=== PATIENT | female | born 1950 | race African-American/Black ===

== ENCOUNTER 2017-03-15 06:32 | Emergency (ER) | payer OTHER ==
[2017-03-15 07:08] VITALS: BMI 27.9
[2017-03-15] MEDS ORDERED: ACETAMINOPHEN 325 MG TABLET (FP) PO ONE (07:25)
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
[2017-03-15] MEDS ORDERED: ACETAMINOPHEN 325 MG TABLET (FP) ONE (07:33)
[2017-03-15 07:46] LABS: URINE APPEARANCE CLEAR; URINE BILIRUBIN NEGATIVE (NEGATIVE); URINE COLOR LTYELLOW; URINE GLUCOSE (UA) NEGATIVE (NEGATIVE); URINE KETONE NEGATIVE (NEGATIVE); URINE LEUK ESTERASE NEGATIVE (NEGATIVE); URINE NITRITE NEGATIVE (NEGATIVE); URINE PROTEIN NEGATIVE (NEGATIVE); URINE UROBILINOGEN NEGATIVE mg/dL (0.2-1.0)
[2017-03-15 07:59] LABS: URINE BLOOD 1+ (NEGATIVE)
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
[2017-03-15 08:32] LABS: URINE MUCUS RARE; URINE RBC <1 /hpf (0-3); URINE WBC 17 /hpf (3-5)
[2017-03-15 09:52] VITALS: BP 157/89; PULSE 67; TEMP 97.6
== END 2017-03-15 09:40 | disposition home or self-care (01) ==
LOC: JER 06:32
DX: S22.32XA Fracture of one rib, left side, initial encounter for closed fracture (principal); S20.222A Contusion of left back wall of thorax, initial encounter; S20.212A Contusion of left front wall of thorax, initial encounter; Y04.2XXA Assault by strike against or bumped into by another person, initial encounter; Y93.89 Activity, other specified; Y92.480 Sidewalk as the place of occurrence of the external cause; I10 Essential (primary) hypertension
CPT/HCPCS: 71101-TC; 81003; 81015; 87086; 99282-25

== ENCOUNTER 2019-02-06 11:49 | Inpatient (IN) | payer OTHER ==
--- NOTE | 2019-02-06 14:32 | PDOC ---
History of Present Illness - General Chief Complaint: Injury Stated Complaint: Altered Mental Status Time Seen by Provider: 02/06/19 13:07 - History of Present Illness Initial Comments: 02/06/19 15:14 68f with pmh of htn presents to the ED brought in by daughter due to altered mental status following a fall she sustained on Tuesday. She lives with her who didn't find the fall and the change in behavior concerning but the neighbor called EMS after the patient was not answering the phone today. Patient has a hematoma around the left eye. Does't rememebr the fall. States that she ingested 2 Benadryl last night to fall asleep. According to daughter at bedside patient isn't responding appropriately, seems confused. Received .4 of Narcan due to h/o opiate use which seem to minimally awaken patient. Patient denies any headache, dizziness, or pain besides being a little sore over her left eyebrow. 02/06/19 15:49 Past History - Past Medical History Allergies/Adverse Reactions: Allergies Allergy/AdvReac Type Severity Reaction Status Date / Time No Known Allergies Allergy Verified 02/06/19 11:55 Home Medications: Ambulatory Orders Amlodipine Besylate mg PO 02/06/19 Baclofen mg PO 02/06/19 Diphenhydramine HCl [Benadryl -] mg PO Q6H 02/06/19 Methotrexate [Mexate -] mg PO Q7D 02/06/19 Mirtazapine mg PO 02/06/19 Pantoprazole Sodium [Protonix] mg PO 02/06/19 COPD: No HTN: Yes - Suicide/Smoking/Psychosocial Hx Smoking History: Unknown if ever smoked Have you smoked in the past 12 months: Yes Number of Cigarettes Smoked Daily: 5 Hx Alcohol Use: Yes Drug/Substance Use Hx: Yes Substance Use Type: Alcohol Review of Systems - Review of Systems Able to Perform ROS?: Yes Is the patient limited Bahraini proficient: No Constitutional: No: Symptoms Reported HEENTM: Yes: See HPI Respiratory: No: Symptoms reported Cardiac (ROS): No: Symptoms Reported ABD/GI: No: Symptoms Reported : No: Symptoms Reported Musculoskeletal: No: Symptoms Reported Integumentary: No: Symptoms Reported Neurological: No: Symptoms reported All Other Systems: Reviewed and Negative *Physical Exam - Vital Signs Last Vital Signs Temp Pulse Resp BP Pulse Ox 98.0 F 83 18 164/92 100 02/06/19 11:51 02/06/19 11:51 02/06/19 11:51 02/06/19 11:51 02/06/19 11:51 - Physical Exam General Appearance: Yes: Nourished, Appropriately Dressed. No: Apparent Distress HEENT: positive: EOMI, VIBHA, Other (hematoma over left eye) Respiratory/Chest: positive: Lungs Clear, Normal Breath Sounds. negative: Chest Tender, Respiratory Distress Cardiovascular: positive: Regular Rhythm, Regular Rate, S1, S2 Gastrointestinal/Abdominal: positive: Protuberent Musculoskeletal: positive: Normal Inspection. negative: CVA Tenderness Extremity: positive: Normal Capillary Refill, Normal Inspection, Normal Range of Motion Integumentary: positive: Normal Color, Dry, Warm Neurologic: positive: Normal Response. negative: Fully Oriented (oritented to self and place, not to date, couldnt vocalize her birthday either. ), Alert ( Patient had to get sternal rub to awaken), Normal Mood/Affect, Motor Strength 5/ 5 (Unable to keep arms and legs agaisnt gravity more than 5 seconds. ) ED Treatment Course - LABORATORY CBC & Chemistry Diagram: 02/06/19 14:07 02/06/19 14:09 - RADIOLOGY Radiology Studies Ordered: Category Date Time Status CERVICAL SPINE CT W/O CONTR [CT] Stat CT Scan 02/06/19 13:[address] W/O CONTRAST [CT] Stat CT Scan 02/06/19 13:[address] WITHOUT CONTRAST [CT] Stat CT Scan 02/06/19 13:14 Taken Medical Decision Making - Medical Decision Making 02/06/19 15:28 68F s/p fall on the face with AMS. Stroke vs metabolic vs tox vs infection Will obtain Ct head, cervical neck and facial bone to r/o fracture and bleed. Will get basic labs, utox, cxr and UA/UC 02/06/19 16:47 Cat scan all negative for acute processes. 02/06/19 16:48 All labs WNL. Urine still pending. Spoke to Dr. Bauer with Neurology who will come see the patient, possibly further investigation with MRi. PAtient admitted to Dr. Gonzalez, Stroke inpatient. *DC/Admit/Observation/Transfer Diagnosis at time of Disposition: Altered mental status - Discharge Dispostion Decision to Admit order: Yes - Referrals - Patient Instructions - Post Discharge Activity
--- NOTE | 2019-02-06 14:35 | PDOC ---
Documentation entered by Lisa Gordillo SCRIBE, acting as scribe for Campbell Moreno MD. Campbell Moreno MD: This documentation has been prepared by the Duy munoz Brenda, SCRIBE, under my direction and personally reviewed by me in its entirety. I confirm that the documentation accurately reflects all work, treatment, procedures, and medical decision making performed by me. Attending Attestation - Resident Resident Name: Bryan Caceres - ED Attending Attestation I have performed the following: I have examined & evaluated the patient, The case was reviewed & discussed with the resident, I agree w/resident's findings & plan, Exceptions are as noted - HPI HPI: 02/06/19 13:37 The patient is a 68 year old female with a significant past medical history of HTN, who presents to the emergency department via EMS for AMS. Per daughter, pt reportedly fell 3 days ago. The nature of the fall is unknown as it was unwitnessed, and pt does not recall how she fell. Daughter states that after the fall, the pt appeared to be behaving her normal self. However, yesterday, pt began to become confused. She states that she has been repeating phrases, not answering questions appropriately. Pt admits to taking benadryl and percocet last night to sleep. Denies intentionally overdosing. Pt denies any complaints currently. Allergies: NKDA PCP. Dr. Matteo Fonseca - Physicial Exam PE: 02/06/19 13:40 GENERAL: somnolent but arousable, AnOx2, in no acute distress. HEAD: No signs of trauma EYES: PERRLA, EOMI, sclera anicteric, conjunctiva clear ENT: Auricles normal inspection, hearing grossly normal, nares patent, oropharynx clear without exudates. Moist mucosa NECK: Nontender, no stepoffs, Normal ROM, supple, no lymphadenopathy, JVD, or masses LUNGS: Breath sounds equal, clear to auscultation bilaterally. No wheezes, and no crackles HEART: Regular rate and rhythm, normal S1 and S2, no murmurs, rubs or gallops ABDOMEN: Soft, nontender, normoactive bowel sounds. No guarding, no rebound. No masses EXTREMITIES: Normal range of motion, no edema. No clubbing or cyanosis. No cords , erythema, or tenderness NEUROLOGICAL: networker intact, + RUE and RLE weakness with poor [id number] on right side, LUE and LLE wnl SKIN: Warm, Dry, normal turgor, no rashes or lesions noted. - Critical Care Time Total Critical Care Time: 60 Critical Care Statement: The care of this patient involved high complexity decision making to prevent further life threatening deterioration of the patient 's condition and/or to evaluate & treat vital organ system(s) failure or risk of failure. - Medical Decision Making 02/06/19 14:38 68 F with AMS since fall 3 days ago. On exam was also noted to have R side weakness. Concerning for acute CVA. NIHSS 6 but pt outside window for tPA. Pt also endorses taking benadryl and oxycodone last night to sleep. Possible polypharmacy vs overdose. Will also evaluate for other metabolic encephalopathy. - Labs, tylenol, salicylate, Utox, ETOH - CT head - Neuro consult NIH Stroke Scale - Last Known Well Date/Time & Onset Date Last Known Well: 02/03/19 - Initial Evaluation Level of consciousness: Alert Ask patient the month and their age: Answers one correctly Ask patient to open & close eyes; make fist and let go: Obeys both correctly Best gaze (horizontal eye movement): Normal Visual field testing: No visual field loss Facial paresis (Show teeth/raise eyebrows/close eyes tight): Normal symmetrical movement Motor Function: Left Arm: Normal Motor Function: Right Arm: Drift Motor Function: Left Leg: Normal (extends leg 30 degrees for 5 seconds without drift) Motor Function: Right Leg: Some effort against gravity Limb Ataxia: Present in one limb Sensory(Use pinprick test arms,legs,trunk,face/side to side): Normal Best language (Describe picture, name items, read sentences): Mild to moderate aphasia Dysarthria (read several words): Normal articulation Extinction and Inattention: No abnormality - Total Score NIH Stroke Scale Score: 6
[2019-02-06 14:46] LABS: BASO % 0.5 % (0-2.0); EOS % 0.1 % (0-4.5); HEMATOCRIT 39.4 % (32.4-45.2); HEMOGLOBIN 13.1 GM/dL (10.7-15.3); LYMPH % 17.1 % (8-40); MCH 29.7 pg (25.7-33.7); MCHC 33.3 g/dl (32.0-36.0); MEAN CELL VOLUME 89.1 fl (80-96); MEAN PLT VOLUME 7.8 fl (7.5-11.1); MONO % 7.3 % (3.8-10.2); PLATELET COUNT 192 K/MM3 (134-434); RBC 4.42 M/mm3 (3.60-5.2); RDW 13.6 % (11.6-15.6)
[2019-02-06 14:51] LABS: INR 0.99 (0.83-1.09); PROTHROMBIN TIME (PATIENT) 11.7 SEC (9.7-13.0)
[2019-02-06 14:54] LABS: ACTIVATED PTT 25.5 SECONDS (25.2-36.5)
[2019-02-06] MEDS ORDERED: ACETAMINOPHEN 1000 MG/100 ML VIAL (NON FORMULARY) IVPB ONE (15:12)
[2019-02-06 15:22] LABS: ALBUMIN 3.4 g/dl (3.4-5.0); ALK PHOS 110 U/L (45-117); ANION GAP 6 MMOL/L (8-16); BILIRUBIN,TOTAL 0.5 mg/dL (0.2-1); BLOOD UREA NITROGEN 15.8 mg/dL (7-18); CALCIUM 9.5 mg/dL (8.5-10.1); CHLORIDE 109 mmol/L (98-107); CO2 28 mmol/L (21-32); CREATININE 0.8 mg/dL (0.55-1.3); GLUCOSE,RANDOM 122 mg/dL (74-106); POTASSIUM 4.3 mmol/L (3.5-5.1); SGOT/AST 23 U/L (15-37); SGPT/ALT 38 U/L (13-61); SODIUM 144 mmol/L (136-145); TOT PROT 7.5 g/dl (6.4-8.2)
--- NOTE | 2019-02-06 15:24 | EKG ---
Test Reason : Blood Pressure : / mmHG Vent. Rate : 082 BPM Atrial Rate : 082 BPM P-R Int : 148 ms QRS Dur : 074 ms QT Int : 352 ms P-R-T Axes : 061 012 024 degrees QTc Int : 411 ms NORMAL SINUS RHYTHM NORMAL ECG WHEN COMPARED WITH ECG OF 25-JAN-2008 15:31, NO SIGNIFICANT CHANGE WAS FOUND Confirmed by MD Benavides Daniel ([id number]) on 02/06/2019 3:24:37 PM Referred By: Confirmed By:Tom Benavides MD
--- NOTE | 2019-02-06 18:03 | CON.NEURO ---
Consult - Alcohol/Substance Use Hx Alcohol Use: Yes - Smoking History Smoking history: Unknown if ever smoked Have you smoked in the past 12 months: Yes Aproximately how many cigarettes per day: 5 Home Medications - Allergies Allergies/Adverse Reactions: Allergies Allergy/AdvReac Type Severity Reaction Status Date / Time No Known Allergies Allergy Verified 02/06/19 11:55 - Home Medications Home Medications: Ambulatory Orders Amlodipine Besylate mg PO 02/06/19 Baclofen mg PO 02/06/19 Diphenhydramine HCl [Benadryl -] mg PO Q6H 02/06/19 Methotrexate [Mexate -] mg PO Q7D 02/06/19 Mirtazapine mg PO 02/06/19 Pantoprazole Sodium [Protonix] mg PO 02/06/19 Physical Exam-Neuro Vital Signs: Vital Signs Temperature 98.0 F 02/06/19 11:51 Pulse Rate 89 02/06/19 15:08 Respiratory Rate 18 02/06/19 15:08 Blood Pressure 177/86 H 02/06/19 15:08 O2 Sat by Pulse Oximetry (%) 99 02/06/19 15:08 Labs: CBC, BMP 02/06/19 14:07 02/06/19 14:09 INR, PTT INR 0.99 (0.83-1.09) 02/06/19 14:07 Assessment/Plan CC Fall and confusion HPI 68 year old female historyof HTN, HLD, Patient lives alone and quite independent. She has fall and she is having difficulty with memory and memory . Patient do nto remember the fall. THere is hematoma around the eye. She has ct head , it was normal. She is quite comfortant, except she is confused she denies any focal neurological syptoms. She has ct of face, neck and head and they are unremarkable. PMH as above. NKDA SH,ROS,FH reviewed in chart Home Medications: Amlodipine Besylate mg PO 02/06/19 Baclofen mg PO 02/06/19 Diphenhydramine HCl [Benadryl -] mg PO Q6H 02/06/19 Methotrexate [Mexate -] mg PO Q7D 02/06/19 Mirtazapine mg PO 02/06/19 Pantoprazole Sodium [Protonix] mg PO 02/06/19 NEUROLOGICAL EXAMINATION Alert oriented x 2( she knows she is at hospital in [place] and today is january , could not tell exact date or year) speech is normal no neck stiffness eomi, pupils reactive, no face asymmetry moving all ext sensation is noraml reflex are generalized diminished CT head , ct face and neck is unremarkable Assessment/Plan Mild concussion injury, following fall pateint had been confused , there is no evidence of any other focal neuro symptoms except confusion. Patient is other denies any other focal neurological symptoms Plan: Suggest to do mri of brain, if she can tolerate, if remote possibility if stroke and she had fall after stroke - continue supportive care - if she continue to be confused, she may benefit from short term rehab Thanking you so much Feng Bauer MD
[2019-02-06 18:59] LABS: EPI CELLS >36 /HPF (0-5/HPF); HYALINE CASTS 15 /lpf (0-8); PH,URINE 5.5 (5.0-8.0); URINE APPEARANCE TURBID; URINE BACTERIA >9000 /hpf (NEGATIVE); URINE BILIRUBIN NEGATIVE (NEGATIVE); URINE COLOR DK YELLOW; URINE GLUCOSE (UA) NEGATIVE (NEGATIVE); URINE KETONE NEGATIVE (NEGATIVE); URINE LEUK ESTERASE 3+ (NEGATIVE); URINE NITRITE POSITIVE (NEGATIVE); URINE PROTEIN 1+ (NEGATIVE); URINE WBC 1254 /hpf (0-5)
[2019-02-06 20:07] LABS: METHADONE, UR NEGATIVE ng/ml (CUTOFF=300); OPIATES, URI NEGATIVE ng/ml (CUTOFF=300); PHENCYCLIDINE,URINE NEGATIVE ng/ml (CUTOFF=25); URINE AMPHETAMINES NEGATIVE ng/ml (CUTOFF=500); URINE BARBITURATES NEGATIVE ng/ml (CUTOFF=200); URINE BENZODIAZEPINES NEGATIVE ng/ml (CUTOFF=200)
[2019-02-06 20:13] LABS: COCAINE, UR POSITIVE ng/ml (CUTOFF=300)
--- NOTE | 2019-02-06 21:25 | HP ---
Admitting History and Physical - Admission History of Present Illness: Pt is a 68 y/o female with pmh of htn, hld and arthritis who presented to the ED brought in by daughter due to altered mental status following a fall she sustained on Tuesday. She lives with her who didn't find the fall and the change in behavior concerning but the neighbor called EMS after the patient was not answering the phone today. Patient has a hematoma around the left eye. Does't rememebr the fall. States that she ingested 2 Benadryl last night to fall asleep. According to daughter at bedside patient isn't responding appropriately, seems confused. Received .4 of Narcan due to h/o opiate use which seem to minimally awaken patient. Patient denies any headache, dizziness, or pain besides being a little sore over her left eyebrow. - Past Medical History Cardiovascular: Yes: HTN, Hyperlipdemia - Smoking History Smoking history: Unknown if ever smoked Have you smoked in the past 12 months: Yes Aproximately how many cigarettes per day: 5 - Alcohol/Substance Use Hx Alcohol Use: Yes Home Medications - Allergies Allergies/Adverse Reactions: Allergies Allergy/AdvReac Type Severity Reaction Status Date / Time No Known Allergies Allergy Verified 02/06/19 11:55 - Home Medications Home Medications: Ambulatory Orders Amlodipine Besylate 2.5 mg PO DAILY #30 tablet 02/09/19 Ciprofloxacin HCl [Cipro] 500 mg PO BID #10 tablet 02/09/19 Methotrexate [Mexate -] 12.5 mg PO Q7D #20 tablet 02/09/19 Pantoprazole Sodium [Protonix] 40 mg PO DAILY #30 tablet. 02/09/19 Family Disease History - Family Disease History Family History: Unremarkable Physical Examination Vital Signs: Vital Signs Temperature 98.0 F 02/06/19 11:51 Pulse Rate 89 02/06/19 15:08 Respiratory Rate 18 02/06/19 15:08 Blood Pressure 177/86 H 02/06/19 15:08 O2 Sat by Pulse Oximetry (%) 99 02/06/19 15:08 Labs: CBC, BMP 02/06/19 14:07 02/06/19 14:09 Problem List - Problems (1) Altered mental status Code(s): R41.82 - ALTERED MENTAL STATUS, UNSPECIFIED (2) Hypertension Code(s): I10 - ESSENTIAL (PRIMARY) HYPERTENSION (3) HLD (hyperlipidemia) Code(s): E78.5 - HYPERLIPIDEMIA, UNSPECIFIED
[2019-02-06 22:25] LABS: URINE RBC 24.9 /hpf (0-4)
[2019-02-06 22:27] LABS: YEAST NONE SEEN (NEGATIVE)
[2019-02-06] MEDS: CEFTRIAXONE 1 GM in DEXTROSE 5%-WATER - 50 ML IVPB SCH (22:50)
[2019-02-06] MEDS ORDERED: CEFTRIAXONE 1 GM/50 ML BAG ONE (22:52)
[2019-02-07] MEDS ORDERED: amLODIPine BESYLATE 5 MG TABLET (FP) ONE (01:36)
[2019-02-07] MEDS ORDERED: amLODIPine BESYLATE 5 MG TABLET (FP) PO ONE (02:00)
[2019-02-07 06:35] VITALS: BMI 25.6
[2019-02-07 07:27] LABS: BASO % 0.8 % (0-2.0); EOS % 0.9 % (0-4.5); HEMATOCRIT 37.8 % (32.4-45.2); HEMOGLOBIN 12.3 GM/dL (10.7-15.3); LYMPH % 24.7 % (8-40); MCH 29.1 pg (25.7-33.7); MCHC 32.7 g/dl (32.0-36.0); MEAN PLT VOLUME 7.8 fl (7.5-11.1); MONO % 8.2 % (3.8-10.2); NEUT % 65.4 % (42.8-82.8); PLATELET COUNT 208 K/MM3 (134-434); RBC 4.25 M/mm3 (3.60-5.2); RDW 13.4 % (11.6-15.6); WHITE BLOOD COUNT 9.2 K/mm3 (4.0-10.0)
[2019-02-07 08:11] LABS: ALBUMIN 3.1 g/dl (3.4-5.0); BILIRUBIN,TOTAL 0.4 mg/dL (0.2-1); BLOOD UREA NITROGEN 21.5 mg/dL (7-18); CALCIUM 8.9 mg/dL (8.5-10.1); POTASSIUM 3.8 mmol/L (3.5-5.1); TOT PROT 6.8 g/dl (6.4-8.2)
[2019-02-07] MEDS ORDERED: cefTRIAXone SODIUM 1 GM VIAL ONE (09:22)
[2019-02-07] MEDS ORDERED: DEXTROSE 5%-WATER - 50 ML IVPB ONE (09:23)
[2019-02-07] MEDS: PANTOPRAZOLE 40 MG TABLET (FP) PO SCH (09:29)
[2019-02-07] MEDS: amLODIPine BESYLATE 5 MG TABLET (FP) PO SCH (09:29)
[2019-02-07] MEDS: HEPARIN NA (PORCINE) 5,000 UNITS/ML 1ML VIAL SQ SCH ×2 (09:30→21:23)
[2019-02-07] MEDS: CEFTRIAXONE 1 GM in DEXTROSE 5%-WATER - 50 ML IVPB SCH (09:30)
[2019-02-07] MEDS: DEXTROSE 5%-0.45% SALINE 1,000 ML IV SCH ×2 (11:58→21:27)
--- NOTE | 2019-02-07 12:43 | ECHO ---
Name: RODRIGUEZROVERTO CASTILLO Exam:Adult Echocardiogram Study Date: 02/07/2019 09:49 AM Age: 68 yrs Reason For Study: CVA Height: 66 in Weight: 170 lb BSA: 1.9 m2 MMode/2D Measurements & Calculations IVSd: 1.1 cm Ao root diam: 2.9 cm LVIDd: 3.5 cm LA dimension: 3.0 cm LVIDs: 2.6 cm LVPWd: 1.2 cm LVPWs: 1.6 cm EDV(Teich): 50.7 ml ESV(Teich): 25.4 ml LVOT diam: 1.9 cm RV S Geovanni: 26.8 cm/sec Doppler Measurements & Calculations MV E max geovanni: 46.4 cm/sec Ao V2 max: 146.1 cm/sec MV A max geovanni: 93.8 cm/sec Ao max P.5 mmHg MV E/A: 0.49 Ao V2 mean: 92.0 cm/sec MV dec time: 0.14 sec Ao mean P.2 mmHg Ao V2 VTI: 25.8 cm KANU(I,D): 2.4 cm2 KANU(V,D): 1.9 cm2 LV V1 max P.1 mmHg SV(LVOT): 61.9 ml LV V1 mean P.1 mmHg LV V1 max: 101.2 cm/sec LV V1 mean: 66.7 cm/sec LV V1 VTI: 22.5 cm TR max geovanni: 248.7 cm/sec PA V2 max: 129.1 cm/sec TR max P.8 mmHg PA max P.7 mmHg Med Peak E' Geovanni: 4.5 cm/sec Med E/e': 10.3 Lat Peak E' Geovanni: 7.8 cm/sec Lat E/e': 5.9 Procedure A two-dimensional transthoracic echocardiogram with color flow and Doppler was performed. Left Ventricle The left ventricular size, thickness and function are normal. The left ventricular ejection fraction is normal. E/A reversal consistent with but not diagnostic of poor LV compliance. The left ventricular w all motion is normal. Right Ventricle The right ventricle is normal in size and function. Atria Normal left and right atrial size and function. Mitral Valve There is mild mitral valve thickening. There is no mitral valve stenosis. There is mild mitral regurg itation. Tricuspid Valve The tricuspid valve is normal in structure and function. There is no tricuspid stenosis. There is tra ce tricuspid regurgitation. Right ventricular systolic pressure is normal. Aortic Valve The aortic valve is not well visualized. No hemodynamically significant valvular aortic stenosis. No aortic regurgitation is present. Pulmonic Valve The pulmonic valve is not well visualized. There is no pulmonic valvular stenosis. Trace pulmonic lalo vular regurgitation. Great Vessels The aortic root is normal size. Pericardium/Pleura There is no pericardial effusion. Interpretation Summary The left ventricular size, thickness and function are normal The left ventricular ejection fraction is normal. The left ventricular wall motion is normal. There is trace tricuspid regurgitation. Right ventricular systolic pressure is normal. There is mild mitral regurgitation. E/A reversal consistent with but not diagnostic of poor LV compliance MD Marlon Frankel 02/07/2019 12:42 PM
--- NOTE | 2019-02-07 13:09 | CON.CARD ---
Consult Consult Specialty:: Cardiology - History of Present Illness Chief Complaint: s/p fall changes in MS - History Source History Provided By: Patient, Medical Record - Past Medical History Cardio/Vascular: Yes: HTN, Hyperlipdemia - Alcohol/Substance Use Hx Alcohol Use: Yes - Smoking History Smoking history: Unknown if ever smoked Have you smoked in the past 12 months: No Aproximately how many cigarettes per day: 5 Home Medications - Allergies Allergies/Adverse Reactions: Allergies Allergy/AdvReac Type Severity Reaction Status Date / Time No Known Allergies Allergy Verified 02/06/19 11:55 - Home Medications Home Medications: Ambulatory Orders Amlodipine Besylate mg PO 02/06/19 Baclofen mg PO 02/06/19 Diphenhydramine HCl [Benadryl -] mg PO Q6H 02/06/19 Methotrexate [Mexate -] mg PO Q7D 02/06/19 Mirtazapine mg PO 02/06/19 Pantoprazole Sodium [Protonix] mg PO 02/06/19 Review of Systems - Review of Systems Constitutional: reports: No Symptoms Eyes: reports: No Symptoms HENT: reports: No Symptoms Neck: reports: No Symptoms Cardiovascular: reports: No Symptoms Gastrointestinal: reports: No Symptoms Genitourinary: reports: No Symptoms Breasts: reports: No Symptoms Reported Musculoskeletal: reports: No Symptoms Integumentary: reports: No Symptoms Neurological: reports: Other (fall, changes in the mental status.) Endocrine: reports: No Symptoms Hematology/Lymphatic: reports: No Symptoms Psychiatric: reports: No Symptoms Vital Signs: Vital Signs Temperature 97.4 F L 02/07/19 10:00 Pulse Rate 125 H 02/07/19 10:00 Respiratory Rate 18 02/07/19 10:00 Blood Pressure 165/89 02/07/19 10:00 O2 Sat by Pulse Oximetry (%) 97 02/07/19 09:00 Constitutional: Yes: Well Nourished, No Distress, Calm Eyes: Yes: WNL, Conjunctiva Clear, EOM Intact HENT: Yes: WNL, Atraumatic, Normocephalic Neck: Yes: WNL, Supple, Trachea Midline Respiratory: Yes: WNL, Regular, CTA Bilaterally Gastrointestinal: Yes: WNL, Normal Bowel Sounds Renal/: Yes: WNL Cardiovascular: Yes: WNL, Regular Rate and Rhythm Musculoskeletal: Yes: WNL Extremities: Yes: WNL Integumentary: Yes: WNL Neurological: Yes: WNL, Alert, Oriented ...Motor Strength: WNL Psychiatric: Yes: WNL, Alert, Oriented - Other Data Labs, Other Data: CBC, BMP 02/07/19 06:40 02/07/19 06:40 INR, PTT INR 0.99 (0.83-1.09) 02/06/19 14:07 Troponin, BNP 02/06/19 14:09 Troponin I < 0.02 Troponin, BNP 02/06/19 14:09 Troponin I < 0.02 Imaging - Results Chest X-ray: Image Reviewed (no i/e) EKG: Image Reviewed (sr wnl) Problem List - Problems (1) Altered mental status Code(s): R41.82 - ALTERED MENTAL STATUS, UNSPECIFIED (2) Bruised ribs Code(s): S20.219A - CONTUSION OF UNSPECIFIED FRONT WALL OF THORAX, INIT ENCNTR Qualifiers: Encounter type: initial encounter Laterality: left Qualified Code(s): S20.212A - Contusion of left front wall of thorax, initial encounter (3) Hypertension Code(s): I10 - ESSENTIAL (PRIMARY) HYPERTENSION (4) Left rib fracture Code(s): S22.32XA - FRACTURE OF ONE RIB, LEFT SIDE, INIT FOR CLOS FX Qualifiers: Encounter type: initial encounter Rib fracture type: single rib Fracture type: closed Qualified Code(s): S22.32XA - Fracture of one rib, left side, initial encounter for closed fracture (5) Medication refill Code(s): Z76.0 - ENCOUNTER FOR ISSUE OF REPEAT PRESCRIPTION (6) Rib fractures Code(s): S22.39XA - FRACTURE OF ONE RIB, UNSP SIDE, INIT FOR CLOS FX Qualifiers: Encounter type: initial encounter Rib fracture type: single rib Fracture type: closed Laterality: right Qualified Code(s): S22.31XA - Fracture of one rib, right side, initial encounter for closed fracture Assessment/Plan s/p fall head injury htn hlp ekg nl tele episodes of sinus tachy echo nl neuro consult appreciated Plan; c. duplex cardiac busby stable ischemic risk stratifications eg stress test as outpatient
--- NOTE | 2019-02-07 19:56 | PN ---
Progress Note (short form) - Note Progress Note: 68 year old female historyof HTN, HLD, Patient lives alone and quite independent. She has fall and she is having difficulty with memory and memory . Patient do nto remember the fall. THere is hematoma around the eye. She has ct head , it was normal. She is quite comfortant, except she is confused she denies any focal neurological syptoms. She has ct of face, neck and head and they are unremarkable. Patient is feeling much better, and now no oriented x 3 and no headache NEUROLOGICAL EXAMINATION Alert oriented x 3, speech is normal no neck stiffness eomi, pupils reactive, no face asymmetry moving all ext sensation is noraml reflex are generalized diminished CT head , ct face and neck is unremarkable mri of brain is normal Assessment/Plan Mild concussion injury, initially was confused and oriented x 3 and feeling much better Plan: mri of brain is noraml - continue supportive care - follow up outpatient Thanking you so much Feng Bauer MD
--- NOTE | 2019-02-07 22:47 | PN ---
Progress Note, Physician History of Present Illness: No new complaints - Current Medication List Current Medications: Active Medications Amlodipine Besylate (Norvasc -) 5 mg PO DAILY [facility] Last Admin: 02/07/19 09:29 Dose: 5 mg Heparin Sodium (Porcine) (Heparin -) 5,000 unit SQ BID [facility] Last Admin: 02/07/19 21:23 Dose: 5,000 unit Dextrose/Sodium Chloride (D5-1/2ns -) 1,000 mls @ 75 mls/hr IV [facility]IR [facility] Last Admin: 02/07/19 21:27 Dose: Not Given Ceftriaxone Sodium 1 gm/ (Dextrose) 50 mls @ 100 mls/hr IVPB DAILY [facility]; Protocol Last Admin: 02/07/19 09:30 Dose: 100 mls/hr Methotrexate (Mexate -) 2.5 mg PO Th@1000 [facility] Pantoprazole Sodium (Protonix -) 40 mg PO DAILY [facility] Last Admin: 02/07/19 09:29 Dose: 40 mg - Objective Vital Signs: Vital Signs Temperature 98.3 F 02/07/19 18:00 Pulse Rate 91 H 02/07/19 18:00 Respiratory Rate 18 02/07/19 18:00 Blood Pressure 129/76 02/07/19 18:00 O2 Sat by Pulse Oximetry (%) 97 02/07/19 09:00 Neck: Yes: WNL, Supple Cardiovascular: Yes: WNL, Regular Rate and Rhythm Respiratory: Yes: WNL, Regular, CTA Bilaterally Gastrointestinal: Yes: WNL, Normal Bowel Sounds, Soft Extremities: Yes: WNL Edema: No Neurological: Yes: WNL, Alert, Oriented Labs: CBC, BMP 02/07/19 06:40 02/07/19 06:40 INR, PTT INR 0.99 (0.83-1.09) 02/06/19 14:07 Problem List - Problems (1) Altered mental status Assessment/Plan: CT scan head was negative Due to i nfectious encephalopathy vs substance abuse Code(s): R41.82 - ALTERED MENTAL STATUS, UNSPECIFIED (2) UTI (urinary tract infection) Assessment/Plan: Cont iV antibx Urine cultures contaminated Code(s): N39.0 - URINARY TRACT INFECTION, SITE NOT SPECIFIED (3) Hypertension Assessment/Plan: BP stable Code(s): I10 - ESSENTIAL (PRIMARY) HYPERTENSION (4) Polysubstance abuse Assessment/Plan: Urine tox screen (+) for cocaine/marijuana Code(s): F19.10 - OTHER PSYCHOACTIVE SUBSTANCE ABUSE, UNCOMPLICATED
[2019-02-08] MEDS: DEXTROSE 5%-0.45% SALINE 1,000 ML IV SCH ×2 (02:00→21:26)
--- NOTE | 2019-02-08 08:16 | PN ---
Progress Note (short form) - Note Progress Note: 68 year old female historyof HTN, HLD, Patient lives alone and quite independent. She has fall and she is having difficulty with memory and memory . Patient do nto remember the fall. THere is hematoma around the eye. She has ct head , it was normal. She is quite comfortant, except she is confused she denies any focal neurological syptoms. She has ct of face, neck and head and they are unremarkable. Patient is feeling much better, and now no oriented x 3 and no headache NEUROLOGICAL EXAMINATION Alert oriented x 3, speech is normal no neck stiffness eomi, pupils reactive, no face asymmetry moving all ext sensation is noraml reflex are generalized diminished CT head , ct face and neck is unremarkable mri of brain is normal Assessment/Plan Mild concussion injury, initially was confused and oriented x 3 and feeling much better. now she seems to be back to her normal state. Plan: mri of brain is noraml - continue supportive care - follow up outpatient Thanking you so much Feng Bauer MD
[2019-02-08] MEDS ORDERED: METHOTREXATE 2.5 MG TABLET PO SCH (10:00)
[2019-02-08] MEDS ORDERED: cefTRIAXone SODIUM 1 GM VIAL ONE (10:16)
[2019-02-08] MEDS ORDERED: DEXTROSE 5%-WATER - 50 ML IVPB ONE (10:16)
[2019-02-08] MEDS ORDERED: PT OWN MED DRAWER 7, Y5N ONE (10:16)
--- NOTE | 2019-02-08 10:16 | PN ---
Progress Note, Physician Chief Complaint: Pt A&Ox3; no chest pain; has craving for cigarettes. History of Present Illness: The patient is a 68 year old female with a significant past medical history of HTN, cocaine abuse (used recently), marijuana, tobacco cigarettes, alcohol, ? osteoarthritis (on methotrexate for ?right hand joint deformity; denies ; ednies hx cancer), who presents to the emergency department via EMS for s/p fall and altered mental status. Per daughter, pt reportedly fell 3 days ago. The nature of the fall is unknown as it was unwitnessed, and pt does not recall how she fell. Daughter states that after the fall, the pt appeared to be behaving her normal self. However, yesterday, pt began to become confused. She states that she has been repeating phrases, not answering questions appropriately. Pt admits to taking benadryl and percocet last night to sleep. Denies intentionally overdosing. Pt denies any complaints currently. Allergies: NKDA PCP. Dr. Matteo Fonseca - Current Medication List Current Medications: Active Medications Amlodipine Besylate (Norvasc -) 5 mg PO DAILY [facility] Last Admin: 02/07/19 09:29 Dose: 5 mg Heparin Sodium (Porcine) (Heparin -) 5,000 unit SQ BID [facility] Last Admin: 02/07/19 21:23 Dose: 5,000 unit Dextrose/Sodium Chloride (D5-1/2ns -) 1,000 mls @ 75 mls/hr IV [facility]IR [facility] Last Admin: 02/08/19 02:00 Dose: 75 mls/hr Ceftriaxone Sodium 1 gm/ (Dextrose) 50 mls @ 100 mls/hr IVPB DAILY [facility]; Protocol Last Admin: 02/07/19 09:30 Dose: 100 mls/hr Methotrexate (Mexate -) 2.5 mg PO Th@1000 [facility] Pantoprazole Sodium (Protonix -) 40 mg PO DAILY [facility] Last Admin: 02/07/19 09:29 Dose: 40 mg - Objective Vital Signs: Vital Signs Temperature 98.3 F 02/08/19 10:12 Pulse Rate 86 02/08/19 10:12 Respiratory Rate 18 02/08/19 10:12 Blood Pressure 163/90 02/08/19 10:12 O2 Sat by Pulse Oximetry (%) 97 02/07/19 21:00 Constitutional: Yes: Calm, Thin Eyes: Yes: WNL HENT: Yes: WNL Neck: Yes: WNL Cardiovascular: Yes: Regular Rate and Rhythm Respiratory: Yes: WNL Gastrointestinal: Yes: Soft ...Rectal Exam: Yes: Deferred Genitourinary: No: Anuria Breast(s): Yes: WNL Musculoskeletal: Yes: WNL Extremities: Yes: WNL Edema: No Peripheral Pulses WNL: Yes Integumentary: Yes: WNL Neurological: Yes: WNL Psychiatric: Yes: WNL Labs: CBC, BMP 02/07/19 06:40 02/07/19 06:40 INR, PTT INR 0.99 (0.83-1.09) 02/06/19 14:07 - ....Imaging Chest X-ray: Image Reviewed Problem List - Problems (1) Osteoarthritis Code(s): M19.90 - UNSPECIFIED OSTEOARTHRITIS, UNSPECIFIED SITE (2) Smokes cigarettes Assessment/Plan: Pt is craving cigarettes; asks to get something, and agrees to nicotine patch. Code(s): F17.210 - NICOTINE DEPENDENCE, CIGARETTES, UNCOMPLICATED (3) Alcohol abuse Code(s): F10.10 - ALCOHOL ABUSE, UNCOMPLICATED (4) Altered mental status Code(s): R41.82 - ALTERED MENTAL STATUS, UNSPECIFIED (5) Hypertension Assessment/Plan: On amlodipine. Avoid beta blockers (current cocaine abuse). Code(s): I10 - ESSENTIAL (PRIMARY) HYPERTENSION (6) Cocaine abuse Assessment/Plan: detox protocol. Code(s): F14.10 - COCAINE ABUSE, UNCOMPLICATED (7) [place] cardiac risk >20% in next 10 years Assessment/Plan: Pt says she had a stress test as outpatient within the psst 6-12 months, but "was unable to complete it on the treadmill, because I got tired"; she was apparently scheduled for a pharmacologic stress test, but never returned. F/u records; would have stress test doen (may do as outpatient). Code(s): Z91.89 - OTH PERSONAL RISK FACTORS, NOT ELSEWHERE CLASSIFIED
[2019-02-08] MEDS: HEPARIN NA (PORCINE) 5,000 UNITS/ML 1ML VIAL SQ SCH ×2 (10:20→21:27)
[2019-02-08] MEDS: PANTOPRAZOLE 40 MG TABLET (FP) PO SCH (10:20)
[2019-02-08] MEDS: amLODIPine BESYLATE 5 MG TABLET (FP) PO SCH (10:20)
[2019-02-08] MEDS: CEFTRIAXONE 1 GM in DEXTROSE 5%-WATER - 50 ML IVPB SCH (10:21)
[2019-02-08] MEDS: NICOTINE 14 MG/24 HOURS TOPICAL PATCH TD SCH (12:00)
[2019-02-08 13:30] LABS: CHOLESTEROL 171 mg/dL (50-200); HDL CHOLESTEROL 68 mg/dL (40-60); TRIGLYCERIDES 136 mg/dL (0-150)
--- NOTE | 2019-02-08 14:02 | EKG ---
Test Reason : Blood Pressure : / mmHG Vent. Rate : 072 BPM Atrial Rate : 072 BPM P-R Int : 154 ms QRS Dur : 084 ms QT Int : 392 ms P-R-T Axes : 012 -32 025 degrees QTc Int : 429 ms NORMAL SINUS RHYTHM LEFT AXIS DEVIATION ABNORMAL ECG WHEN COMPARED WITH ECG OF 06-FEB-2019 11:47, NO SIGNIFICANT CHANGE WAS FOUND Confirmed by SUZAN DAY MD ([id number]) on 02/08/2019 2:01:56 PM Referred By: DORITA GOMEZ DR Confirmed By:SUZAN DAY MD
--- NOTE | 2019-02-08 20:03 | PN ---
Progress Note, Physician History of Present Illness: DOING WELL - Current Medication List Current Medications: Active Medications Amlodipine Besylate (Norvasc -) 5 mg PO DAILY [facility] Last Admin: 02/08/19 10:20 Dose: 5 mg Heparin Sodium (Porcine) (Heparin -) 5,000 unit SQ BID [facility] Last Admin: 02/08/19 10:20 Dose: 5,000 unit Dextrose/Sodium Chloride (D5-1/2ns -) 1,000 mls @ 75 mls/hr IV [facility]IR [facility] Last Admin: 02/08/19 02:00 Dose: 75 mls/hr Ceftriaxone Sodium 1 gm/ (Dextrose) 50 mls @ 100 mls/hr IVPB DAILY [facility]; Protocol Last Admin: 02/08/19 10:21 Dose: 100 mls/hr Methotrexate (Mexate -) 2.5 mg PO Th@1000 [facility] Last Admin: 02/08/19 10:20 Dose: 2.5 mg Nicotine (Nicoderm Patch -) 14 mg TD DAILY [facility] Last Admin: 02/08/19 12:00 Dose: 14 mg Pantoprazole Sodium (Protonix -) 40 mg PO DAILY [facility] Last Admin: 02/08/19 10:20 Dose: 40 mg - Objective Vital Signs: Vital Signs Temperature 98.2 F 02/08/19 18:00 Pulse Rate 81 02/08/19 18:00 Respiratory Rate 18 02/08/19 18:00 Blood Pressure 150/83 02/08/19 18:00 O2 Sat by Pulse Oximetry (%) 97 02/08/19 09:00 Constitutional: Yes: No Distress HENT: Yes: Atraumatic Neck: Yes: Supple Cardiovascular: Yes: Regular Rate and Rhythm Respiratory: Yes: CTA Bilaterally Gastrointestinal: Yes: Normal Bowel Sounds Extremities: Yes: WNL Edema: No Peripheral Pulses WNL: Yes Neurological: Yes: Alert, Oriented Labs: CBC, BMP 02/07/19 06:40 02/07/19 06:40 INR, PTT INR 0.99 (0.83-1.09) 02/06/19 14:07 Problem List - Problems (1) Fall Code(s): W19.XXXA - UNSPECIFIED FALL, INITIAL ENCOUNTER (2) Hypertension Code(s): I10 - ESSENTIAL (PRIMARY) HYPERTENSION (3) Alcohol abuse Code(s): F10.10 - ALCOHOL ABUSE, UNCOMPLICATED (4) Cocaine abuse Code(s): F14.10 - COCAINE ABUSE, UNCOMPLICATED (5) Osteoarthritis Code(s): M19.90 - UNSPECIFIED OSTEOARTHRITIS, UNSPECIFIED SITE (6) Smokes cigarettes Code(s): F17.210 - NICOTINE DEPENDENCE, CIGARETTES, UNCOMPLICATED (7) Bruised ribs Code(s): S20.219A - CONTUSION OF UNSPECIFIED FRONT WALL OF THORAX, INIT ENCNTR Qualifiers: Encounter type: initial encounter Laterality: left Qualified Code(s): S20.212A - Contusion of left front wall of thorax, initial encounter Assessment/Plan continue current management all notes reviewed COVERING DR PARKER FOR TODAY
[2019-02-09] MEDS: DEXTROSE 5%-0.45% SALINE 1,000 ML IV SCH (06:15)
[2019-02-09] MEDS ORDERED: DEXTROSE 5%-WATER - 50 ML IVPB ONE (09:48)
[2019-02-09] MEDS ORDERED: PT OWN MED DRAWER 7, Y5N ONE (09:48)
[2019-02-09] MEDS ORDERED: cefTRIAXone SODIUM 1 GM VIAL ONE (09:48)
[2019-02-09] MEDS: CEFTRIAXONE 1 GM in DEXTROSE 5%-WATER - 50 ML IVPB SCH (09:50)
[2019-02-09] MEDS: PANTOPRAZOLE 40 MG TABLET (FP) PO SCH (09:50)
[2019-02-09] MEDS: HEPARIN NA (PORCINE) 5,000 UNITS/ML 1ML VIAL SQ SCH (09:50)
[2019-02-09] MEDS: NICOTINE 14 MG/24 HOURS TOPICAL PATCH TD SCH (09:50)
[2019-02-09] MEDS: amLODIPine BESYLATE 5 MG TABLET (FP) PO SCH (09:50)
--- NOTE | 2019-02-09 11:01 | PN ---
Progress Note (short form) - Note Progress Note: 68 year old female historyof HTN, HLD, Patient lives alone and quite independent. She has fall and she is having difficulty with memory and memory . Patient do nto remember the fall. THere is hematoma around the eye. She has ct head , it was normal. She is quite comfortant, except she is confused she denies any focal neurological syptoms. She has ct of face, neck and head and they are unremarkable. Patient is feeling much better, and now no oriented x 3 and no headache , no new coplainin and she is getting abx NEUROLOGICAL EXAMINATION Alert oriented x 3, speech is normal no neck stiffness eomi, pupils reactive, no face asymmetry moving all ext sensation is noraml reflex are generalized diminished CT head , ct face and neck is unremarkable mri of brain is normal Assessment/Plan Mild concussion injury, initially was confused and oriented x 3 and feeling much better. now she seems to be back to her normal state. Plan: mri of brain is normal - follow up outpatient Thanking you so much Feng Bauer MD
[2019-02-09 15:06] VITALS: BP 128/72; PULSE 94; TEMP 98.4
--- NOTE | 2019-02-09 18:05 | PN ---
Progress Note, Physician History of Present Illness: The patient is a 68 year old female with a significant past medical history of HTN, cocaine abuse (used recently), marijuana, tobacco cigarettes, alcohol, ? osteoarthritis (on methotrexate for ?right hand joint deformity; denies ; ednies hx cancer), who presents to the emergency department via EMS for s/p fall and altered mental status. Per daughter, pt reportedly fell 3 days ago. The nature of the fall is unknown as it was unwitnessed, and pt does not recall how she fell. Daughter states that after the fall, the pt appeared to be behaving her normal self. However, yesterday, pt began to become confused. She states that she has been repeating phrases, not answering questions appropriately. Pt admits to taking benadryl and percocet last night to sleep. Denies intentionally overdosing. Pt denies any complaints currently. Allergies: NKDA PCP. Dr. Matteo Fonseca - Current Medication List Current Medications: Active Medications Amlodipine Besylate (Norvasc -) 5 mg PO DAILY [facility] Last Admin: 02/09/19 09:50 Dose: 5 mg Heparin Sodium (Porcine) (Heparin -) 5,000 unit SQ BID [facility] Last Admin: 02/09/19 09:50 Dose: 5,000 unit Dextrose/Sodium Chloride (D5-1/2ns -) 1,000 mls @ 75 mls/hr IV ASDIR [facility] Last Admin: 02/09/19 06:15 Dose: 75 mls/hr Ceftriaxone Sodium 1 gm/ (Dextrose) 50 mls @ 100 mls/hr IVPB DAILY [facility]; Protocol Last Admin: 02/09/19 09:50 Dose: 100 mls/hr Methotrexate (Mexate -) 2.5 mg PO Th@1000 [facility] Last Admin: 02/08/19 10:20 Dose: 2.5 mg Nicotine (Nicoderm Patch -) 14 mg TD DAILY [facility] Last Admin: 02/09/19 09:50 Dose: 14 mg Pantoprazole Sodium (Protonix -) 40 mg PO DAILY [facility] Last Admin: 02/09/19 09:50 Dose: 40 mg - Objective Vital Signs: Vital Signs Temperature 98.4 F 02/09/19 14:00 Pulse Rate 94 H 02/09/19 14:00 Respiratory Rate 20 02/09/19 14:00 Blood Pressure 128/72 02/09/19 14:00 O2 Sat by Pulse Oximetry (%) 96 02/08/19 21:00 Labs: CBC, BMP 02/07/19 06:40 02/07/19 06:40 INR, PTT INR 0.99 (0.83-1.09) 02/06/19 14:07 Problem List - Problems (1) Osteoarthritis Code(s): M19.90 - UNSPECIFIED OSTEOARTHRITIS, UNSPECIFIED SITE (2) Smokes cigarettes Code(s): F17.210 - NICOTINE DEPENDENCE, CIGARETTES, UNCOMPLICATED (3) Alcohol abuse Code(s): F10.10 - ALCOHOL ABUSE, UNCOMPLICATED (4) Altered mental status Code(s): R41.82 - ALTERED MENTAL STATUS, UNSPECIFIED (5) Hypertension Code(s): I10 - ESSENTIAL (PRIMARY) HYPERTENSION (6) Cocaine abuse Code(s): F14.10 - COCAINE ABUSE, UNCOMPLICATED (7) [place] cardiac risk >20% in next 10 years Code(s): Z91.89 - OTH PERSONAL RISK FACTORS, NOT ELSEWHERE CLASSIFIED
== END 2019-02-09 18:46 | disposition home or self-care (01) | DRG 89 ==
LOC: JER 11:49 → SUPCPDRO 11:49 → JERBED 16:07 → J4S 02-07 04:09
PROVIDERS: ADMIT Internal Medicine; ATTEND Internal Medicine
DX: S06.0X9A Concussion with loss of consciousness of unspecified duration, initial encounter (principal); N39.0 Urinary tract infection, site not specified; I10 Essential (primary) hypertension; E78.5 Hyperlipidemia, unspecified; S00.12XA Contusion of left eyelid and periocular area, initial encounter; W01.0XXA Fall on same level from slipping, tripping and stumbling without subsequent striking against object, initial encounter; Y93.89 Activity, other specified; Y92.038 Other place in apartment as the place of occurrence of the external cause; Y99.8 Other external cause status; F10.10 Alcohol abuse, uncomplicated; F14.10 Cocaine abuse, uncomplicated; F17.210 Nicotine dependence, cigarettes, uncomplicated
CPT/HCPCS: 36415; 70450-TC; 70486-TC; 70551-TC; 71045-TC-FY; 72125-TC; 80053; 80061; 80307; 81003; 82550; 82553; 82962; 83036; 83721; 84443; 84484; 85025; 85610; 85730; 87086; 93005; 93010; 93306-TC; 93880-TC; 97116-GP; 97161-GP; 99285-25; J1644; J8610

== ENCOUNTER 2019-11-18 07:37 | Inpatient (IN) | payer OTHER ==
--- NOTE | 2019-11-18 07:50 | PDOC ---
Attending Attestation - Resident Resident Name: Rich Pathak - HPI HPI: 11/18/19 08:49 Pt presents to the ED complaining of slurred speech and L sided weakness. History of HTN, admissions for AMS with negative work up in the past. Last known well 10 pm last night. 11/18/19 08:50 - Physicial Exam PE: 11/18/19 08:53 Agree with resident exam. Patient is alert and oriented and in no acute distress. Neuro: alert and oriented x 3. CN grossly intact. Speech is fluent and patient is oriented x 3, but slightly slurred. 11/18/19 09:02 - Medical Decision Making 11/18/19 09:04 Pt presents to the ED complaining of slurred speech and R sided weakness, onset at 10 pm last night. Differential includes CVA, TIA. Will check CT to rule out bleed. Will admit for MRI and CVA rule out. Will consult neurology. 11/18/19 09:07 Discharge - Discharge Information Problems reviewed: Yes Clinical Impression/Diagnosis: Cerebrovascular accident (CVA), Transient ischemic attack Condition: Improved - Follow up/Referral - Patient Discharge Instructions - Post Discharge Activity
--- NOTE | 2019-11-18 08:11 | PDOC ---
History of Present Illness - General Chief Complaint: CVA/TIA Stated Complaint: POSSIBLE STROKE Time Seen by Provider: 11/18/19 07:48 - History of Present Illness Initial Comments: Stacie Moyer is a 69 y/o female with reported PMH significant for HTN. Yesterday afternoon at 2:45pm, she had onset of slurred speech and right upper and lower extremity weakness. First time this has happened, no hx of stroke in the past. Symptoms resolved. At around 10pm last night she started having symptoms again but went to bed. This morning she woke up around 5:45am with the same weakness. Fell while trying to get to the bathroom. Family subsequently called EMS. Never had a stroke before. At present, pt denies any pain. No headache/dizziness. No chest pain/shortness of breath. No abdominal pain. No back pain. No lower extremity swelling. No dysuria/diarrhea. SocHx: did two to three lines of cocaine yesterday Past History - Past Medical History Allergies/Adverse Reactions: Allergies Allergy/AdvReac Type Severity Reaction Status Date / Time No Known Allergies Allergy Verified 11/18/19 07:45 Home Medications: Ambulatory Orders Amlodipine Besylate 2.5 mg PO DAILY #30 tablet 02/09/19 Ciprofloxacin HCl [Cipro] 500 mg PO BID #10 tablet 02/09/19 Methotrexate [Mexate -] 12.5 mg PO Q7D #20 tablet 02/09/19 Pantoprazole Sodium [Protonix] 40 mg PO DAILY #30 tablet. 02/09/19 Cancer: No COPD: No Disorders: No HTN: Yes - Psycho Social/Smoking Cessation Hx Smoking History: Current every day smoker Have you smoked in the past 12 months: Yes Number of Cigarettes Smoked Daily: 2 Information on smoking cessation initiated: No Hx Alcohol Use: No Drug/Substance Use Hx: No Substance Use Type: Alcohol Review of Systems - Review of Systems Comments:: GENERAL/CONSTITUTIONAL: No fever or chills. No weakness._ HEAD, EYES, EARS, NOSE AND THROAT: No change in vision. No change in hearing. No sore throat._ CARDIOVASCULAR: No chest pain or shortness of breath_ RESPIRATORY: Denies cough, hemoptysis_ GASTROINTESTINAL: No nausea, vomiting, diarrhea or constipation._ GENITOURINARY: No dysuria, frequency, or change in urination._ MUSCULOSKELETAL: No joint or muscle swelling or pain. No neck or back pain._ SKIN: No rash_ NEUROLOGIC: Reports RUE and RLE weakness. Reports slurred speech. No headache, vertigo, loss of consciousness, or change in strength/sensation._ ENDOCRINE: No increased thirst. No abnormal weight change_ HEMATOLOGIC/LYMPHATIC: No anemia, easy bleeding, or history of blood clots._ ALLERGIC/IMMUNOLOGIC: No hives or skin allergy. *Physical Exam - Vital Signs Last Vital Signs Temp Pulse Resp BP Pulse Ox 98 F 65 18 138/74 97 11/18/19 07:46 11/18/19 07:46 11/18/19 07:46 11/18/19 07:46 11/18/19 07:46 - Physical Exam GENERAL: Awake, alert, and oriented to person/place/time, in no acute distress_ HEAD: No signs of trauma, normocephalic, atraumatic _ EYES: PERRLA, EOMI, sclera anicteric, conjunctiva clear_ ENT: Hearing grossly normal, nares patent, oropharynx clear without exudates. No uvular deviation. Moist mucosa_ NECK: Normal ROM, supple, no lymphadenopathy, JVD, or masses. No c-spine TTP. LUNGS: No distress, speaks in full sentences, clear to auscultation bilaterally _ HEART: Regular rate and rhythm, normal S1 and S2, no murmurs appreciated, peripheral pulses normal and equal bilaterally._ ABDOMEN: Soft, nontender, normoactive bowel sounds. No guarding, no rebound. No masses_ BACK: No T-spine or L-spine TTP. No obvious bruising or trauma. EXTREMITIES: Normal inspection, Normal range of motion, no edema. No clubbing or cyanosis_ NEUROLOGICAL: CN II-XII tested and intact. No obvious facial droop. Slurred speech. Sensation intact to sharp/dull differentiation in all extremities. Motor: Normal tone and bulk. No abnormal movements appreciated. No pronator drift. Strength tested and 5/5 on left side in wrist flexion/extension, elbow flexion/extension, shoulder abduction, straight leg raise, knee flexion/extension, ankle dorsiflexion/plantarflexion. 3/5 on right side wrist flexion/extension, elbow flexion/extension, shoulder abduction, straight leg raise, knee flexion/extension, ankle dorsiflexion/plantarflexion. Gait not assessed 2/2 weakness. Coordination: Finger to nose intact for left hand. Heel to lomeli testing intact on left side. Unable to assess right side 2/2 weakness. SKIN: Warm, Dry, normal turgor, no rashes or lesions noted_ NIH Stroke Scale - Last Known Well Date/Time & Onset Date Last Known Well: 11/17/19 Time Last Known Well: 22:00 - Initial Evaluation Level of consciousness: Alert Ask patient the month and their age: Answers both correctly Ask patient to open & close eyes; make fist and let go: Obeys both correctly Best gaze (horizontal eye movement): Normal Visual field testing: No visual field loss Facial paresis (Show teeth/raise eyebrows/close eyes tight): Normal symmetrical movement Motor Function: Left Arm: Normal Motor Function: Right Arm: Some effort against gravity Motor Function: Left Leg: Normal (extends leg 30 degrees for 5 seconds without drift) Motor Function: Right Leg: Some effort against gravity Limb Ataxia: Present in one limb Sensory(Use pinprick test arms,legs,trunk,face/side to side): Normal Best language (Describe picture, name items, read sentences): No Aphasia Dysarthria (read several words): Mild to moderate slurring of words Extinction and Inattention: No abnormality - Total Score NIH Stroke Scale Score: 6 tPA Exclusion checklist 3-4.5h - Time Elapsed Date last known well: 11/17/19 Time last known well: 22:00 Elaspsed time: Day(s) and 12 Hour(s) and 21 Minutes - Thrombolytic Therapy Candidate Is patient eligible for thrombolytic therapy: No - Exclusion Criteria 3-4.5 hr SBP greater than 185 or DBP greater than 110mmHg despite tx: No Recent IC/spinal surgery,head trauma or stroke<3mos.: No Hx IC hemorrhage, IC neoplasm, AV malformation or aneurysm: No Active internal bleeding: No Blding diathesis(low plt ct, inc PTT,INR>1.7 or use of NOAC): No Symptoms suggest subarachnoid hemorrhage: No CT demonstrates multilobar infarct(>1/3 cerebral hemiphere): No Arterial puncture at noncompressible site in previous 7 days: No Blood glucose concentration less than 50mg/dL (2.7mmol/L): No - Relative Exclusion Criteria 3-4.5 hr Care team unable to determine eligibility: No IV/IA thrombolysis/thrombectomy @ another hosp prior arrival: No Life expectancy <1 yr or severe co-morbid illness: No : No Patient/family refused: No Stroke severity too mild (non-disabling): No Recent acute NH (w/in previous 3 months): No Seizure at onset with postictal residual neuro impairments: No Major surgery or serious trauma w/in previous 14 days: No Recent GI or hemorrhage (w/in previous 21 days): No - Add'l Relative Exclusion 3-4.5 hr Age > 80: No Hx of both diabetes AND prior ischemic stroke: No Taking an oral anticoagulant regardless of INR: No Severe Stroke (NIHSS >25): No - Ineligibility reason(s) Reasons No tPA given: Outside of window - delayed arrival Critical Care Time/MDM Note - Medical Decision Making Note: 11/18/19 08:20 69F presenting with slurred speech and RUE/RLE weakness, s/p fall. Resolved episode at 1445 yesterday. Last known well 2200 yesterday. -stroke order set 11/18/19 09:06 EKG shows NSR, LAD (seen on prior EKG 01/2019), 63 bpm, no ST elevation, QTc 444. 11/18/19 09:11 CXR negative for acute thoracic pathology. 11/18/19 10:12 CT head negative for acute intracranial pathology. CT neck negative for fx. D/w Dr. Bauer who recommends admission, brain MRI, carotid US. 11/18/19 10:21 D/w the case with Dr. Gonzalez who accepts the patient for admission. Labs reviewed. Laboratory Last Values WBC 7.1 K/mm3 (4.0-10.0) 11/18/19 08:35 RBC 4.71 M/mm3 (3.60-5.2) 11/18/19 08:35 Hgb 13.6 GM/dL (10.7-15.3) 11/18/19 08:35 Hct 40.8 % (32.4-45.2) 11/18/19 08:35 MCV 86.5 fl (80-96) 11/18/19 08:35 MCH 28.8 pg (25.7-33.7) 11/18/19 08:35 MCHC 33.3 g/dl (32.0-36.0) 11/18/19 08:35 RDW 14.4 % (11.6-15.6) 11/18/19 08:35 Plt Count 194 K/MM3 (134-434) 11/18/19 08:35 MPV 8.1 fl (7.5-11.1) 11/18/19 08:35 Absolute Neuts (auto) 5.0 K/mm3 (1.5-8.0) 11/18/19 08:35 Neutrophils % 69.8 % (42.8-82.8) 11/18/19 08:35 Lymphocytes % 16.9 % (8-40) D 11/18/19 08:35 Monocytes % 11.5 % (3.8-10.2) H 11/18/19 08:35 Eosinophils % 1.5 % (0-4.5) 11/18/19 08:35 Basophils % 0.3 % (0-2.0) 11/18/19 08:35 Nucleated RBC % 0 % (0-0) 11/18/19 08:35 Sodium 140 mmol/L (136-145) 11/18/19 08:35 Potassium 5.2 mmol/L (3.5-5.1) H 11/18/19 08:35 Chloride 105 mmol/L (98-107) 11/18/19 08:35 Carbon Dioxide 26 mmol/L (21-32) 11/18/19 08:35 Anion Gap 8 MMOL/L (8-16) 11/18/19 08:35 BUN 22.8 mg/dL (7-18) H 11/18/19 08:35 Creatinine 1.3 mg/dL (0.55-1.3) 11/18/19 08:35 Est GFR (CKD-EPI)AfAm 47.80 11/18/19 08:35 Est GFR (CKD-EPI)NonAf 41.24 11/18/19 08:35 Random Glucose 112 mg/dL (74-106) H 11/18/19 08:35 Calcium 9.0 mg/dL (8.5-10.1) 11/18/19 08:35 Total Bilirubin 0.7 mg/dL (0.2-1) 11/18/19 08:35 AST 40 U/L (15-37) H 11/18/19 08:35 ALT 32 U/L (13-61) 11/18/19 08:35 Alkaline Phosphatase 94 U/L (45-117) 11/18/19 08:35 Creatine Kinase 123 U/L (26-192) 11/18/19 08:35 Troponin I < 0.02 ng/ml (0.00-0.05) 11/18/19 08:35 Total Protein 7.7 g/dl (6.4-8.2) 11/18/19 08:35 Albumin 3.5 g/dl (3.4-5.0) 11/18/19 08:35 Triglycerides 98 mg/dL (0-150) 11/18/19 08:35 Triglycerides Cancelled 11/18/19 08:35 Cholesterol 217 mg/dL (50-200) H 11/18/19 08:35 Cholesterol Cancelled 11/18/19 08:35 Total LDL Cholesterol 114 mg/dL (5-100) H 11/18/19 08:35 Total LDL Cholesterol Cancelled 11/18/19 08:35 HDL Cholesterol 88 mg/dL (40-60) H 11/18/19 08:35 HDL Cholesterol Cancelled 11/18/19 08:35 Urine Color Yellow 11/18/19 10:00 Urine Appearance Cloudy 11/18/19 10:00 Urine pH 6.5 (5.0-8.0) 11/18/19 10:00 Ur Specific [place] 1.010 (1.010-1.035) 11/18/19 10:00 Urine Protein Negative (NEGATIVE) 11/18/19 10:00 Urine Glucose (UA) Negative (NEGATIVE) 11/18/19 10:00 Urine Ketones Negative (NEGATIVE) 11/18/19 10:00 Urine Blood Negative (NEGATIVE) 11/18/19 10:00 Urine Nitrite Negative (NEGATIVE) 11/18/19 10:00 Urine Bilirubin Negative (NEGATIVE) 11/18/19 10:00 Urine Urobilinogen 1.0 mg/dL (0.2-1.0) 11/18/19 10:00 Ur Leukocyte Esterase 2+ (NEGATIVE) H 11/18/19 10:00 Urine WBC (Auto) 320 /uL (0-25.8) 11/18/19 10:00 Urine RBC (Auto) 17 /uL (0-23.9) 11/18/19 10:00 Urine Casts (Auto) 4 /uL (0-3.1) 11/18/19 10:00 U Epithel Cells (Auto) 24 /uL (0-25.1) 11/18/19 10:00 Urine Bacteria (Auto) 623 /uL (0-1359) 11/18/19 10:00 Blood Type A POSITIVE 11/18/19 08:35 Antibody Screen Negative 11/18/19 08:35 Discharge - Discharge Information Problems reviewed: Yes Clinical Impression/Diagnosis: Cerebrovascular accident (CVA), Transient ischemic attack Condition: Stable - Admission Yes - Follow up/Referral Referrals: Salvador Fonseca MD [Primary Care Provider] - - Patient Discharge Instructions - Post Discharge Activity
[2019-11-18] MEDS ORDERED: SODIUM CHLORIDE 1,000 ML IV SCH ×2 (08:15→19:26)
[2019-11-18 09:09] LABS: BASO % 0.3 % (0-2.0); EOS % 1.5 % (0-4.5); HEMATOCRIT 40.8 % (32.4-45.2); HEMOGLOBIN 13.6 GM/dL (10.7-15.3); LYMPH % 16.9 % (8-40); MCH 28.8 pg (25.7-33.7); MCHC 33.3 g/dl (32.0-36.0); MEAN CELL VOLUME 86.5 fl (80-96); MEAN PLT VOLUME 8.1 fl (7.5-11.1); MONO % 11.5 % (3.8-10.2); NEUT % 69.8 % (42.8-82.8); PLATELET COUNT 194 K/MM3 (134-434); RBC 4.71 M/mm3 (3.60-5.2); RDW 14.4 % (11.6-15.6); WHITE BLOOD COUNT 7.1 K/mm3 (4.0-10.0)
[2019-11-18 09:45] LABS: ALBUMIN 3.5 g/dl (3.4-5.0); ALK PHOS 94 U/L (45-117); ANION GAP 8 MMOL/L (8-16); BILIRUBIN,TOTAL 0.7 mg/dL (0.2-1); BLOOD UREA NITROGEN 22.8 mg/dL (7-18); CHLORIDE 105 mmol/L (98-107); CHOLESTEROL 217 mg/dL (50-200); CO2 26 mmol/L (21-32); CREATININE 1.3 mg/dL (0.55-1.3); GLUCOSE,RANDOM 112 mg/dL (74-106); HDL CHOLESTEROL 88 mg/dL (40-60); LDL CHOLESTEROL (ONLY SJRH) 114 mg/dL (5-100); POTASSIUM 5.2 mmol/L (3.5-5.1); SGOT/AST 40 U/L (15-37); SGPT/ALT 32 U/L (13-61); SODIUM 140 mmol/L (136-145); TOT PROT 7.7 g/dl (6.4-8.2); TRIGLYCERIDES 98 mg/dL (0-150)
[2019-11-18] MEDS ORDERED: ASPIRIN 81 MG CHEWABLE TABLETS PO ONE (10:01)
[2019-11-18 10:20] LABS: EPI CELLS 24 /uL (0-25.1); HYALINE CASTS 4 /uL (0-3.1); PH,URINE 6.5 (5.0-8.0); URINE APPEARANCE CLOUDY; URINE BACTERIA 623 /uL (0-1359); URINE BILIRUBIN NEGATIVE (NEGATIVE); URINE COLOR YELLOW; URINE GLUCOSE (UA) NEGATIVE (NEGATIVE); URINE KETONE NEGATIVE (NEGATIVE); URINE LEUK ESTERASE 2+ (NEGATIVE); URINE NITRITE NEGATIVE (NEGATIVE); URINE PROTEIN NEGATIVE (NEGATIVE); URINE RBC 17 /uL (0-23.9); URINE WBC 320 /uL (0-25.8)
[2019-11-18 10:29] LABS: INR 0.95 (0.83-1.09); PROTHROMBIN TIME (PATIENT) 11.2 SEC (9.7-13.0)
[2019-11-18 10:32] LABS: ACTIVATED PTT 26.5 SECONDS (25.2-36.5)
[2019-11-18] MEDS ORDERED: ASPIRIN 81 MG CHEWABLE TABLETS ONE ×2 (10:33→10:44)
[2019-11-18] MEDS ORDERED: METHOTREXATE 2.5 MG TABLET PO SCH (16:45)
--- NOTE | 2019-11-18 16:57 | HP ---
CHIEF COMPLAINT: Right-sided weakness, slurred speech PCP: Dr. Salvador Fonseca HISTORY OF PRESENT ILLNESS: 69 year-old female with a PMH significant for HTN and substance abuse. Yesterday afternoon at 2:45pm, she had onset of slurred speech and right upper and lower extremity weakness. Symptoms resolved. At around 10pm last night she started having symptoms again but went to bed. This morning she woke up around 5:45am with the same weakness. Fell while trying to get to the bathroom. Family subsequently called EMS. At the time of this admission patient states her speech is back to baseline. She also states her right hand weakness has been present x 1 year. She denies dysuria, frequency, urgency. She has not been on antibiotics that she can remember. She last saw Dr. Fonseca in August. She stopped taking her regular medications "because I'm stupid." ED course (1) Pyuria (2) K 5.2 Recent Travel: None reported PAST MEDICAL HISTORY: Hypertension Substance abuse PAST SURGICAL HISTORY: None reported Social History: Smoking: current every day Alcohol: yes Drugs: cocaine yesterday Allergies No Known Allergies Allergy (Verified 11/18/19 07:45) HOME MEDICATIONS: Home Medications Medication Instructions Recorded Amlodipine Besylate 2.5 mg PO DAILY #30 tablet 02/09/19 Ciprofloxacin HCl [Cipro] 500 mg PO BID #10 tablet 02/09/19 Methotrexate [Mexate -] 12.5 mg PO Q7D #20 tablet 02/09/19 Pantoprazole Sodium [Protonix] 40 mg PO DAILY #30 tablet. 02/09/19 REVIEW OF SYSTEMS CONSTITUTIONAL: Absent: fever, chills, diaphoresis, generalized weakness, malaise, loss of appetite, weight change HEENT: Absent: rhinorrhea, nasal congestion, throat pain, throat swelling, difficulty swallowing, mouth swelling, ear pain, eye pain, visual changes CARDIOVASCULAR: Absent: chest pain, syncope, palpitations, irregular heart rate, lightheadedness, peripheral edema RESPIRATORY: Absent: cough, shortness of breath, dyspnea with exertion, orthopnea, wheezing, stridor, hemoptysis GASTROINTESTINAL: Absent: abdominal pain, abdominal distension, nausea, vomiting, diarrhea, constipation, melena, hematochezia GENITOURINARY: Absent: dysuria, frequency, urgency, hesitancy, hematuria, flank pain, genital pain MUSCULOSKELETAL: Absent: myalgia, arthralgia, joint swelling, back pain, neck pain SKIN: Absent: rash, itching, pallor HEMATOLOGIC/IMMUNOLOGIC: Absent: easy bleeding, easy bruising, lymphadenopathy, frequent infections ENDOCRINE: Absent: unexplained weight gain, unexplained weight loss, heat intolerance, cold intolerance NEUROLOGIC: +slurred speech yesterday, now resolved; right-handed weakness x 1 year Absent: headache, focal weakness or paresthesias, dizziness, unsteady gait, seizure, mental status changes, bladder or bowel incontinence PSYCHIATRIC: Absent: anxiety, depression, suicidal or homicidal ideation, hallucinations. PHYSICAL EXAMINATION Vital Signs - 24 hr 11/18/19 11/18/19 11/18/19 07:46 08:58 11:00 Temperature 98 F Pulse Rate 65 Pulse Rate [ 69 68 Left] Respiratory 18 17 18 Rate Blood Pressure 138/74 Blood Pressure 143/69 136/79 [Left Arm] O2 Sat by Pulse 97 99 99 Oximetry (%) GENERAL/NEURO: Awake, alert, and fully oriented, in no acute distress. Right pronator drift. 3/5 cma or lpn right hand, sensory intact; 4/5 motor RLE, sensory intact HEAD: Normal with no signs of trauma. EYES: Pupils equal, round and reactive to light, extraocular movements intact, sclera anicteric, conjunctiva clear. EARS, NOSE, THROAT: Edentulous. LUNGS: Breath sounds equal, clear to auscultation bilaterally. No wheezes, and no crackles. No accessory muscle use. HEART: Regular rate and rhythm, normal S1 and S2 ABDOMEN: Soft, nontender, not distended UPPER EXTREMITIES: 2+ pulses, warm, well-perfused. No cyanosis. No clubbing. No peripheral edema. LOWER EXTREMITIES: 2+ pulses, warm, well-perfused. No calf tenderness. No peripheral edema. Laboratory Results - last 24 hr 11/18/19 11/18/19 11/18/19 08:35 08:35 08:35 WBC 7.1 RBC 4.71 Hgb 13.6 Hct 40.8 MCV 86.5 MCH 28.8 MCHC 33.3 RDW 14.4 Plt Count 194 MPV 8.1 Absolute Neuts (auto) 5.0 Neutrophils % 69.8 Lymphocytes % 16.9 D Monocytes % 11.5 H Eosinophils % 1.5 Basophils % 0.3 Nucleated RBC % 0 PT with INR 11.20 INR 0.95 PTT (Actin FS) 26.5 Sodium Potassium Chloride Carbon Dioxide Anion Gap BUN Creatinine Est GFR (CKD-EPI)AfAm Est GFR (CKD-EPI)NonAf Random Glucose Calcium Total Bilirubin AST ALT Alkaline Phosphatase Creatine Kinase Troponin I Total Protein Albumin Triglycerides Cancelled Cholesterol Cancelled Total LDL Cholesterol Cancelled HDL Cholesterol Cancelled Urine Color Urine Appearance Urine pH Ur Specific [place] Urine Protein Urine Glucose (UA) Urine Ketones Urine Blood Urine Nitrite Urine Bilirubin Urine Urobilinogen Ur Leukocyte Esterase Urine WBC (Auto) Urine RBC (Auto) Urine Casts (Auto) U Epithel Cells (Auto) Urine Bacteria (Auto) Blood Type Antibody Screen 11/18/19 11/18/19 11/18/19 08:35 08:35 10:00 WBC RBC Hgb Hct MCV MCH MCHC RDW Plt Count MPV Absolute Neuts (auto) Neutrophils % Lymphocytes % Monocytes % Eosinophils % Basophils % Nucleated RBC % PT with INR INR PTT (Actin FS) Sodium 140 Potassium 5.2 H Chloride 105 Carbon Dioxide 26 Anion Gap 8 BUN 22.8 H Creatinine 1.3 Est GFR (CKD-EPI)AfAm 47.80 Est GFR (CKD-EPI)NonAf 41.24 Random Glucose 112 H Calcium 9.0 Total Bilirubin 0.7 AST 40 H ALT 32 Alkaline Phosphatase 94 Creatine Kinase 123 Troponin I < 0.02 Total Protein 7.7 Albumin 3.5 Triglycerides 98 Cholesterol 217 H Total LDL Cholesterol 114 H HDL Cholesterol 88 H Urine Color Yellow Urine Appearance Cloudy Urine pH 6.5 Ur Specific [place] 1.010 Urine Protein Negative Urine Glucose (UA) Negative Urine Ketones Negative Urine Blood Negative Urine Nitrite Negative Urine Bilirubin Negative Urine Urobilinogen 1.0 Ur Leukocyte Esterase 2+ H Urine WBC (Auto) 320 Urine RBC (Auto) 17 Urine Casts (Auto) 4 U Epithel Cells (Auto) 24 Urine Bacteria (Auto) 623 Blood Type A POSITIVE Antibody Screen Negative ASSESSMENT/PLAN: 69 year-old female with a PMH significant for HTN and substance abuse. Admitted for r/o CVA. r/o CVA --self-reported speech deficit resolved --mild weakness RUE, RLE, sensory intact --troponin neg x 1, second pending --ECG: no acute ischemia --CT head unremarkable --US carotids: no significant stenosis --MRI brain ordered --continue ASA, start Lipitor --telemetry monitoring --neuro consult pending Hypertension --continue amlodipine Substance abuse --cocaine use yesterday --telemetry monitoring Mild hyperkalemia --IV fluids Rheumatoid arthritis --deformities of both hands and both feet --is prescribed methotrexate, has not taken --give dose in am Pyuria --afebrile, no leukocytosis, asymptomatic --observe off antibiotics FEN Fluids: NS@75mL/hr Electrolytes: replete as indicated Nutrition: low sodium; passed dysphagia screen DVT prophylaxis: subq lovenox Physical therapy Full code Visit type - Emergency Visit Emergency Visit: Yes ED Registration Date: 11/18/19 Care time: The patient presented to the Emergency Department on the above date and was hospitalized for further evaluation of their emergent condition. - New Patient This patient is new to me today: Yes Date on this admission: 11/18/19 - Critical Care Critical Care patient: No
[2019-11-18] MEDS ORDERED: amLODIPine BESYLATE 5 MG TABLET (FP) ONE (17:15)
[2019-11-18] MEDS ORDERED: PANTOPRAZOLE 40 MG TABLET ONE (17:15)
[2019-11-18] MEDS: amLODIPine BESYLATE 2.5 MG TABLET (FP) PO SCH (17:34)
[2019-11-18] MEDS: PANTOPRAZOLE 40 MG TABLET PO SCH (17:34)
[2019-11-18] MEDS: ATORVASTATIN CA 80 MG TABLET (FP) PO SCH (21:46)
[2019-11-18] MEDS ORDERED: NICOTINE 14 MG/24 HOURS TOPICAL PATCH TD SCH (22:00)
[2019-11-18] MEDS ORDERED: CIPROFLOXACIN 500 MG TABLET (RESTRICTED TO ID) PO SCH (22:00)
[2019-11-18 22:19] VITALS: BMI 25.1
--- NOTE | 2019-11-18 22:23 | CON.NEURO ---
Consult - Past Medical History Cardio/Vascular: Yes: HTN, Hyperlipdemia - Alcohol/Substance Use Hx Alcohol Use: No - Smoking History Smoking history: Current every day smoker Have you smoked in the past 12 months: Yes Aproximately how many cigarettes per day: 2 Home Medications - Allergies Allergies/Adverse Reactions: Allergies Allergy/AdvReac Type Severity Reaction Status Date / Time No Known Allergies Allergy Verified 11/18/19 07:45 - Home Medications Home Medications: Ambulatory Orders Amlodipine Besylate 2.5 mg PO DAILY #30 tablet 02/09/19 Ciprofloxacin HCl [Cipro] 500 mg PO BID #10 tablet 02/09/19 Methotrexate [Mexate -] 12.5 mg PO Q7D #20 tablet 02/09/19 Pantoprazole Sodium [Protonix] 40 mg PO DAILY #30 tablet. 02/09/19 Physical Exam-Neuro Vital Signs: Vital Signs Temperature 98 F 11/18/19 07:46 Pulse Rate 77 11/18/19 17:29 Respiratory Rate 18 11/18/19 17:29 Blood Pressure 171/78 H 11/18/19 17:29 O2 Sat by Pulse Oximetry (%) 97 11/18/19 17:29 Labs: CBC, BMP 11/18/19 08:35 11/18/19 08:35 INR, PTT INR 0.95 (0.83-1.09) 11/18/19 08:35 Assessment/Plan CC Slurring of speech and right hemiparesis on november 17, 2019 HPI 69 year old female history of HTN, Substance abuse. She has episode of tia on november 16 around 2.45 pm, adn symptoms resolved. Later on november 17, she has woke up with right sided weaknes. Her ct head was normal. Patient has ct head was unremarkable, and her carotid ultrasound is normal. Patient ad admitted during Covid pandemic , spoke to house staff, chat reviewed. Recent Travel: None reported PAST MEDICAL HISTORY: Hypertension Substance abuse PAST SURGICAL HISTORY: None reported Social History: Smoking: current every day Alcohol: yes Drugs: cocaine yesterday Allergies No Known Allergies Allergy (Verified 11/18/19 07:45) On neurolgoical examination vss ,righ sided HP, nih score is [address] head, carotid ultraosund is normal Assessment 69 year old female left mca lacunar stroke, with nih score of 6, no acute findings on ct head, carotid ultraosund is unremakable. Plan aspirin and statin mri ofbrain speech, pt and dvt prophylaxis supportive care Thanking you so much Feng Bauer MD
[2019-11-18] MEDS: MELATONIN 1 MG TABLET PO SCH (23:00)
--- NOTE | 2019-11-19 07:17 | PN ---
Physical Exam: SUBJECTIVE: Patient seen and examined OBJECTIVE: Vital Signs Period Temp Pulse Resp BP Sys/Bach Pulse Ox Last 24 Hr 98 F-98.9 F 65-85 17-18 132-171/50-81 97-99 GENERAL/NEURO: Awake, alert, and fully oriented, in no acute distress. Right pronator drift. 3/5 stave bolt equalizer right hand, sensory intact; 4/5 motor RLE, sensory intact HEAD: Normal with no signs of trauma. EYES: Pupils equal, round and reactive to light, extraocular movements intact, sclera anicteric, conjunctiva clear. EARS, NOSE, THROAT: Edentulous. LUNGS: Breath sounds equal, clear to auscultation bilaterally. No wheezes, and no crackles. No accessory muscle use. HEART: Regular rate and rhythm, normal S1 and S2 ABDOMEN: Soft, nontender, not distended UPPER EXTREMITIES: 2+ pulses, warm, well-perfused. No cyanosis. No clubbing. No peripheral edema. LOWER EXTREMITIES: 2+ pulses, warm, well-perfused. No calf tenderness. No peripheral edema. Laboratory Results - last 24 hr 11/18/19 11/18/19 11/18/19 08:35 08:35 08:35 WBC 7.1 RBC 4.71 Hgb 13.6 Hct 40.8 MCV 86.5 MCH 28.8 MCHC 33.3 RDW 14.4 Plt Count 194 MPV 8.1 Absolute Neuts (auto) 5.0 Neutrophils % 69.8 Lymphocytes % 16.9 D Monocytes % 11.5 H Eosinophils % 1.5 Basophils % 0.3 Nucleated RBC % 0 PT with INR 11.20 INR 0.95 PTT (Actin FS) 26.5 Sodium Potassium Chloride Carbon Dioxide Anion Gap BUN Creatinine Est GFR (CKD-EPI)AfAm Est GFR (CKD-EPI)NonAf Random Glucose Calcium Total Bilirubin AST ALT Alkaline Phosphatase Creatine Kinase Troponin I Total Protein Albumin Triglycerides Cancelled Cholesterol Cancelled Total LDL Cholesterol Cancelled HDL Cholesterol Cancelled Urine Color Urine Appearance Urine pH Ur Specific [place] Urine Protein Urine Glucose (UA) Urine Ketones Urine Blood Urine Nitrite Urine Bilirubin Urine Urobilinogen Ur Leukocyte Esterase Urine WBC (Auto) Urine RBC (Auto) Urine Casts (Auto) U Epithel Cells (Auto) Urine Bacteria (Auto) Blood Type Antibody Screen 11/18/19 11/18/19 11/18/19 08:35 08:35 10:00 WBC RBC Hgb Hct MCV MCH MCHC RDW Plt Count MPV Absolute Neuts (auto) Neutrophils % Lymphocytes % Monocytes % Eosinophils % Basophils % Nucleated RBC % PT with INR INR PTT (Actin FS) Sodium 140 Potassium 5.2 H Chloride 105 Carbon Dioxide 26 Anion Gap 8 BUN 22.8 H Creatinine 1.3 Est GFR (CKD-EPI)AfAm 47.80 Est GFR (CKD-EPI)NonAf 41.24 Random Glucose 112 H Calcium 9.0 Total Bilirubin 0.7 AST 40 H ALT 32 Alkaline Phosphatase 94 Creatine Kinase 123 Troponin I < 0.02 Total Protein 7.7 Albumin 3.5 Triglycerides 98 Cholesterol 217 H Total LDL Cholesterol 114 H HDL Cholesterol 88 H Urine Color Yellow Urine Appearance Cloudy Urine pH 6.5 Ur Specific [place] 1.010 Urine Protein Negative Urine Glucose (UA) Negative Urine Ketones Negative Urine Blood Negative Urine Nitrite Negative Urine Bilirubin Negative Urine Urobilinogen 1.0 Ur Leukocyte Esterase 2+ H Urine WBC (Auto) 320 Urine RBC (Auto) 17 Urine Casts (Auto) 4 U Epithel Cells (Auto) 24 Urine Bacteria (Auto) 623 Blood Type A POSITIVE Antibody Screen Negative 11/18/19 20:00 WBC RBC Hgb Hct MCV MCH MCHC RDW Plt Count MPV Absolute Neuts (auto) Neutrophils % Lymphocytes % Monocytes % Eosinophils % Basophils % Nucleated RBC % PT with INR INR PTT (Actin FS) Sodium Potassium Chloride Carbon Dioxide Anion Gap BUN Creatinine Est GFR (CKD-EPI)AfAm Est GFR (CKD-EPI)NonAf Random Glucose Calcium Total Bilirubin AST ALT Alkaline Phosphatase Creatine Kinase Troponin I < 0.03 Total Protein Albumin Triglycerides Cholesterol Total LDL Cholesterol HDL Cholesterol Urine Color Urine Appearance Urine pH Ur Specific [place] Urine Protein Urine Glucose (UA) Urine Ketones Urine Blood Urine Nitrite Urine Bilirubin Urine Urobilinogen Ur Leukocyte Esterase Urine WBC (Auto) Urine RBC (Auto) Urine Casts (Auto) U Epithel Cells (Auto) Urine Bacteria (Auto) Blood Type Antibody Screen Active Medications Generic Name Dose Route Start Last Admin Trade Name Freq PRN Reason Stop Dose Admin Amlodipine Besylate 2.5 mg 11/18/19 16:45 11/18/19 17:34 Norvasc - PO 2.5 mg DAILY ORLY Administration Aspirin 81 mg 11/19/19 10:00 Ecotrin - PO DAILY ORLY Atorvastatin Calcium 80 mg 11/18/19 22:00 11/18/19 21:46 Lipitor - PO 80 mg HS ORLY Administration Enoxaparin Sodium 40 mg 11/19/19 10:00 Lovenox - SQ DAILY ORLY Sodium Chloride 1,000 mls @ 75 mls/hr 11/18/19 19:26 11/18/19 20:55 Normal Saline - IV 75 mls/hr ASDIR ORLY Administration Melatonin 3 mg 11/18/19 22:00 11/18/19 23:00 Melatonin PO 3 mg HS ORLY Administration Methotrexate 12.5 mg 11/19/19 10:00 Mexate - PO Q7D ORLY Nicotine 14 mg 11/18/19 22:00 11/18/19 23:03 Nicoderm Patch - TD 14 mg DAILY ORLY Administration Pantoprazole Sodium 40 mg 11/18/19 16:45 11/18/19 17:34 Protonix - PO 40 mg DAILY ORLY Administration ASSESSMENT/PLAN: 69 year-old female with a PMH significant for HTN and substance abuse. Admitted for r/o CVA. Acute CVA --MRI brain: left paramedian pontine acute/subacute infarct; chronic lacunar infarcts --mild weakness right hand --continue ASA, Lipitor --telemetry monitoring --neuro following Hypertension --BP has been stable --continue amlodipine Substance abuse --cocaine use yesterday --telemetry monitoring Mild hyperkalemia --resolved Rheumatoid arthritis --dosed methotrexate today Pyuria --afebrile, no leukocytosis, asymptomatic, culture negative --no antibiotics Smoking cessation --discussed with patient --nicotine patch FEN Fluids: PO intake adequate Electrolytes: replete as indicated Nutrition: low sodium; passed dysphagia screen DVT prophylaxis: SCDs, oob, ambulation Physical therapy Full code Visit type - Emergency Visit Emergency Visit: Yes ED Registration Date: 11/18/19 Care time: The patient presented to the Emergency Department on the above date and was hospitalized for further evaluation of their emergent condition. - New Patient This patient is new to me today: No - Critical Care Critical Care patient: No
[2019-11-19 08:52] LABS: BASO % 0.7 % (0-2.0); EOS % 1.9 % (0-4.5); HEMATOCRIT 38.7 % (32.4-45.2); HEMOGLOBIN 12.4 GM/dl (10.7-15.3); LYMPH % 31.5 % (8-40); MCH 28.1 pg (25.7-33.7); MCHC 32.2 g/dl (32.0-36.0); MEAN CELL VOLUME 87.3 fl (80-96); MEAN PLT VOLUME 8.3 fl (7.5-11.1); MONO % 11.2 % (3.8-10.2); NEUT % 54.7 % (42.8-82.8); PLATELET COUNT 189 K/MM3 (134-434); RBC 4.43 M/mm3 (3.60-5.2); RDW 13.4 % (11.6-15.6); WHITE BLOOD COUNT 6.2 K/mm3 (4.0-10.8)
[2019-11-19 08:59] LABS: ALBUMIN 3.1 g/dl (3.4-5.0); BILIRUBIN,TOTAL 0.6 mg/dl (0.2-1); CALCIUM 8.9 mg/dl (8.5-10); MAGNESIUM 1.9 mg/dL (1.8-2.4); POTASSIUM 3.5 mmol/L (3.5-5.1); TOT PROT 6.5 g/dl (6.4-8.2)
[2019-11-19] MEDS ORDERED: PT OWN MED DRAWER 7, Y5N ONE (09:31)
--- NOTE | 2019-11-19 09:37 | EKG ---
Test Reason : Blood Pressure : / mmHG Vent. Rate : 063 BPM Atrial Rate : 063 BPM P-R Int : 170 ms QRS Dur : 080 ms QT Int : 434 ms P-R-T Axes : 025 -30 023 degrees QTc Int : 444 ms POOR DATA QUALITY, INTERPRETATION MAY BE ADVERSELY AFFECTED NORMAL SINUS RHYTHM LEFT AXIS DEVIATION ABNORMAL ECG WHEN COMPARED WITH ECG OF 08-FEB-2019 12:00, T WAVE AMPLITUDE HAS DECREASED IN ANTEROLATERAL LEADS Confirmed by Michelle Weaver ([id number]) on 11/19/2019 9:37:08 AM Referred By: Confirmed By:Michelle Weaver
[2019-11-19] MEDS ORDERED: ENOXAPARIN NA (PORCINE) 40 MG/0.4 ML DISP.SYRIN SQ SCH (10:00)
[2019-11-19] MEDS ORDERED: METHOTREXATE 2.5 MG TABLET PO ONE (10:00)
[2019-11-19] MEDS ORDERED: ASPIRIN COATED 81 MG TABLET.EC PO SCH (10:00)
[2019-11-19] MEDS ORDERED: METHOTREXATE 2.5 MG TABLET PO SCH (10:00)
[2019-11-19] MEDS: amLODIPine BESYLATE 2.5 MG TABLET (FP) PO SCH (10:01)
[2019-11-19] MEDS: PANTOPRAZOLE 40 MG TABLET PO SCH (10:02)
--- NOTE | 2019-11-19 14:34 | DS ---
Physical Exam: SUBJECTIVE: Patient seen and examined OBJECTIVE: Vital Signs Period Temp Pulse Resp BP Sys/Bach Pulse Ox Last 24 Hr 98.1 F-98.9 F 70-85 18-18 132-171/50-78 97-99 PHYSICAL EXAM GENERAL: The patient is awake, alert, and fully oriented, in no acute distress. HEAD: Normal with no signs of trauma. EYES: PERRL, extraocular movements intact, sclera anicteric, conjunctiva clear. ENT: Ears normal, nares patent, oropharynx clear without exudates, moist mucous membranes. NECK: Trachea midline, full range of motion, supple. LUNGS: Breath sounds equal, clear to auscultation bilaterally, no wheezes, no crackles, no accessory muscle use. HEART: Regular rate and rhythm, S1, S2 without murmur, rub or gallop. ABDOMEN: Soft, nontender, nondistended, normoactive bowel sounds, no guarding, no rebound, no hepatosplenomegaly, no masses. EXTREMITIES: 2+ pulses, warm, well-perfused, no edema. NEUROLOGICAL: Cranial nerves II through XII grossly intact. Normal speech, gait not observed. PSYCH: Normal mood, normal affect. SKIN: Warm, dry, normal turgor, no rashes or lesions noted. LABS Laboratory Results - last 24 hr 11/18/19 11/19/19 11/19/19 20:00 07:45 07:45 WBC 6.2 RBC 4.43 Hgb 12.4 Hct 38.7 MCV 87.3 MCH 28.1 MCHC 32.2 RDW 13.4 Plt Count 189 MPV 8.3 Absolute Neuts (auto) 3.4 Neutrophils % 54.7 Lymphocytes % 31.5 Monocytes % 11.2 H Eosinophils % 1.9 Basophils % 0.7 Sodium 139 Potassium 3.5 Chloride 106 Carbon Dioxide 23 Anion Gap 10 BUN 24.0 H Creatinine 1.0 Est GFR (CKD-EPI)AfAm 65.64 Est GFR (CKD-EPI)NonAf 56.64 Random Glucose 109 H Calcium 8.9 Magnesium 1.9 Total Bilirubin 0.6 AST 20 ALT 22 Alkaline Phosphatase 66 Troponin I < 0.03 Total Protein 6.5 Albumin 3.1 L HOSPITAL COURSE: Date of Admission:11/18/19 Date of Discharge: 11/19/19 Minutes to complete discharge: 35 Discharge Summary Problems reviewed: Yes Reason For Visit: STROKE Current Active Problems Cerebrovascular accident (CVA) (Acute) Transient ischemic attack (Acute) Condition: Stable - Instructions Referrals: Salvador Fonseca MD [Primary Care Provider] - - Home Medications Comprehensive Discharge Medication List: Ambulatory Orders Amlodipine Besylate 2.5 mg PO DAILY #30 tablet 02/09/19 Ciprofloxacin HCl [Cipro] 500 mg PO BID #10 tablet 02/09/19 Methotrexate [Mexate -] 12.5 mg PO Q7D #20 tablet 02/09/19 Pantoprazole Sodium [Protonix] 40 mg PO DAILY #30 tablet. 02/09/19 This patient is new to me today: No Emergency Visit: Yes ED Registration Date: 11/18/19 Care time: The patient presented to the Emergency Department on the above date and was hospitalized for further evaluation of their emergent condition. Critical Care patient: No - Discharge Referral Referred to [facility] No
--- NOTE | 2019-11-19 17:22 | PN ---
Progress Note (short form) - Note Progress Note: 69 year old female history of HTN, Substance abuse. She has episode of tia on november 16 around 2.45 pm, adn symptoms resolved. Later on november 17, she has woke up with right sided weaknes. Her ct head was normal. Patient has ct head was unremarkable, and her carotid ultrasound is normal. Patient ad admitted during Covid 19 pandemic , spoke to house staff, chat reviewed.Spoke to BOTTOM STOP ATTACHER today, and her symptoms improved, mri of brain showed there is brain stem infarct. On neurolgoical examination vss , nih score is 6 on admission alert oriented x 3 cn all intact mild right arm weakness ct head, carotid ultraosund is normal mri of brain showed brain stem infarct Assessment 69 year old female have brain stem infarct carotid ultraosund is unremakable. Symptoms are improved. patinet is feeling better and only mild right arm weakness . Plan continue aspirin and statin Patient can discharged and follow up outpatient discussed with primary team Thanking you so much Feng Bauer MD
[2019-11-19] MEDS: ATORVASTATIN CA 80 MG TABLET (FP) PO SCH (21:13)
[2019-11-19] MEDS: MELATONIN 1 MG TABLET PO SCH (21:13)
[2019-11-20 06:44] VITALS: BP 163/71; PULSE 71; TEMP 98.5
--- NOTE | 2019-11-20 14:01 | PN ---
Progress Note (short form) - Note Progress Note: 69 year old female history of HTN, Substance abuse. She has episode of tia on november 16 around 2.45 pm, adn symptoms resolved. Later on november 17, she has woke up with right sided weaknes. Her ct head was normal. Patient has ct head was unremarkable, and her carotid ultrasound is normal. Patient ad admitted during Covid 19 pandemic , spoke to house staff, chat reviewed.Spoke to BEREAVEMENT COUNSELOR today, and her symptoms improved, mri of brain showed there is brain stem infarct. no new complain On neurolgoical examination vss , nih score is 6 on admission alert oriented x 3 cn all intact mild right arm weakness ct head, carotid ultraosund is normal mri of brain showed brain stem infarct Assessment 69 year old female have brain stem infarct carotid ultraosund is unremakable. Symptoms are improved. patinet is feeling better and only mild right arm weakness . Plan continue aspirin and statin Patient can discharged and follow up outpatient discussed with primary team Thanking you so much Feng Bauer MD
== END 2019-11-20 10:10 | disposition home or self-care (01) | DRG 65 ==
LOC: JER 07:37 → JERBED 10:15 → FM/S 19:46
PROVIDERS: ADMIT Internal Medicine; ATTEND Nurse Practitioner Acute Care
DX: I63.9 Cerebral infarction, unspecified (principal); I69.351 Hemiplegia and hemiparesis following cerebral infarction affecting right dominant side; E87.5 Hyperkalemia; I10 Essential (primary) hypertension; M06.9 Rheumatoid arthritis, unspecified; F14.10 Cocaine abuse, uncomplicated; F17.210 Nicotine dependence, cigarettes, uncomplicated; Z72.89 Other problems related to lifestyle; R82.81 Pyuria
CPT/HCPCS: 36415; 70450-TC; 70551-TC; 71045-TC-FY; 72125-TC; 80048; 80053; 80061; 81003; 82550; 83721; 83735; 84484; 85025; 85610; 85730; 86850; 86900; 86901; 87086; 93005; 93010; 93880-TC; 97116-GP; 97163-GP; 99285-25; J7030; J8610

== ENCOUNTER 2020-03-24 06:06 | Inpatient (IN) | payer OTHER ==
[2020-03-20 10:58] VITALS: BMI 25.8
[2020-03-24] MEDS ORDERED: CEFAZOLIN 2 GM/D5W 2 GM/50 ML ML IVPB ONE (07:29)
[2020-03-24] MEDS ORDERED: BUPIVACAINE LIPOSOME/PF (EXPAREL) 266 MG/20 ML VIAL ONE (07:48)
[2020-03-24] MEDS ORDERED: MIDAZOLAM HCL 2 MG/2 ML SINGLE DOSE VIAL ONE ×2 (07:49)
[2020-03-24] MEDS ORDERED: SODIUM CHLORIDE 0.9% P/F 10 ML VIAL IJ ONE ×2 (07:53→08:42)
[2020-03-24] MEDS ORDERED: ceFAZolin SODIUM 1 GM VIAL ONE (08:42)
[2020-03-24] MEDS ORDERED: ceFAZolin SODIUM 1 GM VIAL IVPB ONE (08:44)
[2020-03-24] MEDS ORDERED: PROPOFOL 20 ML ONE ×6 (08:45→09:39)
[2020-03-24] MEDS ORDERED: METOPROLOL TARTRATE 5 MG/5 ML VIAL ONE (09:10)
[2020-03-24] MEDS ORDERED: oxyCODONE HCL 5 MG TABLET PO PRN ×2 (11:15)
[2020-03-24] MEDS ORDERED: ACETAMINOPHEN 325 MG TABLET (FP) PO SCH (11:15)
[2020-03-24] MEDS ORDERED: ONDANSETRON 4 MG/2 ML VIAL IVPUSH PRN ×3 (11:15→12:00)
[2020-03-24] MEDS ORDERED: PROMETHAZINE HCL 25 MG/1 ML VIAL IVPB PRN ×2 (11:15→12:00)
[2020-03-24] MEDS ORDERED: LACTATED RINGERS SOLUTION 1,000 ML IV SCH ×2 (11:15→12:00)
[2020-03-24] MEDS ORDERED: traMADol HCL 50 MG TABLET PO PRN ×2 (11:15→12:00)
[2020-03-24] MEDS ORDERED: NICOTINE 14 MG/24 HOURS TOPICAL PATCH TD SCH (11:29)
--- NOTE | 2020-03-24 11:47 | OP ---
Operative Note - Note: Operative Date: 03/24/20 Pre-Operative Diagnosis: Right knee osteoarthritis Operation: Right total knee replacement Findings: as dictated Implants: as dictated Post-Operative Diagnosis: Same as Pre-op Surgeon: Brayden Shetty [facility] Clinician: Akash Hernandez Anesthesiologist/EXPERIMENTAL MECHANIC [employer]: Sohan Wilkinson Anesthesia: Spinal, Local (adductor canal block) Specimens Removed: bone cuts Estimated Blood Loss (mls): 150 (ml) Fluid Volume Replaced (mls): 1,300 (ml lr) Operative Report Dictated: Yes
--- NOTE | 2020-03-24 11:49 | SURG ---
Surgery General Doc Note General Doc: Akash Hernandez PA-C (Suzy) Date of Service: 03/24/20 Diagnosis: Right knee osteoarthritis Procedure: Operation: Right total knee replacement I was present for the entirety of the operative procedure. For further detail, please refer to operative report. Visit type - Case Type Case Type: Scheduled - Emergency Emergency Visit: No - New patient This patient is new to me today: Yes Date on this admission: 03/24/20 - Critical Care Critical Care patient: No
[2020-03-24] MEDS ORDERED: MAGNESIUM HYDROX 2400MG/30ML ORAL SUSPENSION 30 ML CUP PO PRN (12:00)
[2020-03-24] MEDS ORDERED: PANTOPRAZOLE 40 MG TABLET PO PRN (12:00)
[2020-03-24] MEDS ORDERED: MAG HYDROX/AL HYDROX/SIMETH 30 ML UNIT-DOSE CUP PO PRN (12:00)
[2020-03-24] MEDS: LACTATED RINGERS SOLUTION 1,000 ML IV SCH (13:00)
[2020-03-24] MEDS: oxyCODONE HCL 5 MG TABLET PO PRN ×2 (13:48→19:54)
[2020-03-24] MEDS ORDERED: CEFAZOLIN 2 GM/D5W 2 GM/50 ML ML IVPB SCH (16:30)
[2020-03-24] MEDS: ACETAMINOPHEN 325 MG TABLET (FP) PO SCH (17:10)
[2020-03-24] MEDS: SENNOSIDES/DOCUSATE COMBO (SENNA PLUS) TABLET (UD) PO SCH (21:32)
[2020-03-24] MEDS: ATORVASTATIN CA 80 MG TABLET (FP) PO SCH (21:32)
[2020-03-24] MEDS: ASCORBIC ACID 500 MG TABLET (FP) PO SCH (21:32)
[2020-03-24] MEDS: ASPIRIN COATED 81 MG TABLET.EC PO SCH (21:32)
[2020-03-24] MEDS: FERROUS SO4 325 MG TABLET (FP) PO SCH (21:32)
[2020-03-24] MEDS: oxyCODONE HCL 10 MG SUSTAINED ACTING TABLET PO SCH (21:32)
[2020-03-24] MEDS ORDERED: oxyCODONE HCL 10 MG SUSTAINED ACTING TABLET PO SCH (22:00)
[2020-03-25] MEDS: ACETAMINOPHEN 325 MG TABLET (FP) PO SCH ×4 (01:01→16:31)
[2020-03-25] MEDS: LACTATED RINGERS SOLUTION 1,000 ML IV SCH ×2 (01:03→12:45)
[2020-03-25] MEDS: oxyCODONE HCL 5 MG TABLET PO PRN ×3 (05:23→16:32)
[2020-03-25 08:10] LABS: HEMATOCRIT 24.7 % (32.4-45.2); MCHC 32.6 g/dl (32.0-36.0); MEAN CELL VOLUME 92.2 fl (80-96); MEAN PLT VOLUME 7.8 fl (7.5-11.1); PLATELET COUNT 189 K/MM3 (134-434); RBC 2.68 M/mm3 (3.60-5.2); RDW 16.9 % (11.6-15.6); WHITE BLOOD COUNT 9.5 K/mm3 (4.0-10.0)
[2020-03-25 08:25] LABS: BLOOD UREA NITROGEN 18.2 mg/dL (7-18); CALCIUM 8.2 mg/dL (8.5-10.1); CREATININE 0.7 mg/dL (0.55-1.3)
[2020-03-25] MEDS: MULTIVITAMINS (DAILY MVI) TABLET (FP) PO SCH ×2 (08:32→09:04)
[2020-03-25] MEDS: amLODIPine BESYLATE 5 MG TABLET (FP) PO SCH ×2 (08:32→09:03)
[2020-03-25] MEDS: ASPIRIN COATED 81 MG TABLET.EC PO SCH ×3 (08:32→21:53)
[2020-03-25] MEDS: FERROUS SO4 325 MG TABLET (FP) PO SCH ×3 (08:32→21:53)
[2020-03-25] MEDS: ASCORBIC ACID 500 MG TABLET (FP) PO SCH ×3 (08:33→21:53)
[2020-03-25] MEDS: SENNOSIDES/DOCUSATE COMBO (SENNA PLUS) TABLET (UD) PO SCH ×2 (09:04→21:54)
[2020-03-25] MEDS ORDERED: METHOTREXATE 2.5 MG TABLET PO SCH (10:00)
--- NOTE | 2020-03-25 10:01 | PN ---
Progress Note (short form) - Note Progress Note: Anesthesia Post op/pain Pt seen and examined S:Alert and awake, comfortable O: Vital Signs Temperature 98 F 03/25/20 08:46 Pulse Rate 89 03/25/20 08:46 Respiratory Rate 18 03/25/20 08:48 Blood Pressure 133/63 03/25/20 08:46 O2 Sat by Pulse Oximetry (%) 98 03/25/20 08:48 CBC, BMP 03/25/20 06:54 03/25/20 06:54 A/P s/p Right THR Doing well post op Continue current care Cristóbal Bazan M.D.
--- NOTE | 2020-03-25 10:38 | PN ---
Progress Note (short form) - Note Progress Note: Surgery POD #1 right TKA patient seen and examined at bedside with no complaints. Patient states her pain is controlled and she is tolerating her diet and denies any CP, SOB, N/V, fever or chills. She has not been OOB yet with PT. Vital Signs Temp 98 F 03/25/20 08:46 Pulse 89 03/25/20 08:46 Resp 18 03/25/20 08:48 BP 133/63 03/25/20 08:46 Pulse Ox 98 03/25/20 08:48 Intake & Output 03/24/20 03/24/20 03/25/20 11:59 23:59 11:59 Intake Total 6550 345 1857 Output Total 150 Balance 2596 288 8440 Intake: IV 1500 1500 Lactated Ringers Solution 1500 1,000 ml @ 125 mls/hr IV ASDIR ORLY Rx#: [id number] Oral 240 240 Output: Estimated Blood Loss 150 Other: Voiding Method Bedpan Bedpan Bowel Movement No No CBC, BMP 03/25/20 06:54 03/25/20 06:54 PE: A&Ox3, NAD Unlabored resp on RA right LE in full extension with diffuse edema throughout appropriate to status, Dressing c/d/i with surrounding tissue intact and no tracking erythema of evidence of collection of active d/c. Thigh soft and supple. B/L LE compartments soft, supple and non-tender with +2 DP pulses. Problem List - Problems (1) History of total left knee replacement Assessment/Plan: POD #1 doing well with pain controlled - Stop methotrexate- confirmed with patient she does not take this anymore - Start Basctrim DS tonight -per [place] - OOB with PT and WBAT- up to chair for meals - encourage IS - Continue DvT prophylaxis with B/L Teds/scds, aspirin and early ambulation. - Ice knee 20 mis every hour, keep incision dry - F/u ANY, plan for Left TKA Code(s): Z96.652 - PRESENCE OF LEFT ARTIFICIAL KNEE JOINT
[2020-03-25] MEDS: oxyCODONE HCL 10 MG SUSTAINED ACTING TABLET PO SCH ×2 (11:02→21:52)
--- NOTE | 2020-03-25 12:36 | OP ---
DATE OF OPERATION: 03/24/2020 PREOPERATIVE DIAGNOSIS: Very severe osteoarthritis of the right knee with valgus deformity. POSTOPERATIVE DIAGNOSIS: Very severe osteoarthritis of the right knee with valgus deformity plus degenerative tearing of the medial and the lateral menisci and severe hypertrophy of the synovium. SURGEON: Brayden Shetty MD ANESTHESIA: Spinal. PROCEDURE: Total knee replacement, release of lateral structures and excision of the medial and the lateral menisci. DESCRIPTION OF PROCEDURE: After induction of spinal anesthesia and without any tourniquet the entire leg and knee and thigh were now prepped and draped in a free manner. A 14 cm incision was made over the anterior aspect of the knee. It was deepened through the subcutaneous tissue down to the surface of the extensor mechanism. A gentle medial flap was made uncovering proximally the junction between the vastus medialis and rectus femoris, in the midsection the medial border of the patella and distally the medial border of the patella tendon. The extensor mechanism now was released along that line. The synovium was opened and at this point a very large amount of serous fluid extruded out of the joint. Knee inspection confirmed the massive arthritic changes whereby there was very severe damage to the articular cartilage throughout the knee. There was marginal osteophyte mostly laterally. There were severe degenerative tearing of the medial and the lateral menisci and severe hypertrophy of the synovium. The procedure started first by a debulking of the hypertrophied synovium and this was followed by an excision of the medial and the lateral menisci. Following this and using appropriate jigs for a [employer] prosthesis, a LEGION 2, appropriate cuts were made into the distal femur, the proximal tibia and the articular surface of the patella. Appropriate sizing was done using appropriate jigs and it was found that the best fit for the distal femur was a No. 3. The best fit for the tibia baseplate was No. 4, a 32-mm patella button and a 9-mm spacer. Temporary implants now were placed and the knee was examined. The alignment seemed to be clinically within normal limits, the range of motion from 0 to 140 degrees of flexion. The patella was tracking perfectly well in the intercondylar groove. All temporary components now were removed. Irrigation was done with normal saline, hemostasis obtained and the final prosthesis was placed first by cementing the patella button and the tibial tray and, after hardening of the cement, the femoral component now was press fit against the femur and spacer was placed in between. A final check again showed that the alignment was within normal limits, range of motion from 0 to 140 degrees of flexion. The patella was tracking perfectly well in the intercondylar groove and there was very good stability in extension and flexion. Final irrigation was done with normal saline and the wound closed in several layers, Vicryl No. 1 for the extensor mechanism, 2-0 for the subcutaneous tissue and holly for the skin. A dressing was applied. The intraoperative x-rays were done and checked and showed very good seating and alignment of the prosthesis. The patient tolerated the procedure and left the operating room in excellent condition. Kasandra [id number]
[2020-03-25] MEDS: NICOTINE 14 MG/24 HOURS TOPICAL PATCH TD PRN (16:45)
--- NOTE | 2020-03-25 17:55 | HP ---
Admitting History and Physical - Past Medical History Cardiovascular: Yes: HTN, Hyperlipdemia - Smoking History Smoking history: Current every day smoker Have you smoked in the past 12 months: Yes Aproximately how many cigarettes per day: 1 - Alcohol/Substance Use Hx Alcohol Use: No Home Medications - Allergies Allergies/Adverse Reactions: Allergies Allergy/AdvReac Type Severity Reaction Status Date / Time No Known Allergies Allergy Verified 03/24/20 06:51 - Home Medications Home Medications: Ambulatory Orders Amlodipine Besylate 2.5 mg PO DAILY #30 tablet 11/19/19 Aspirin Coated [Ecotrin -] 81 mg PO DAILY #30 tablet.ec 11/19/19 Atorvastatin Ca [Lipitor] 80 mg PO HS #30 tablet 11/19/19 Diclofenac Sodium 50 mg PO PRN PRN 03/20/20 Physical Examination Vital Signs: Vital Signs Temperature 98.9 F 03/25/20 14:37 Pulse Rate 82 03/25/20 14:37 Respiratory Rate 18 03/25/20 14:37 Blood Pressure 133/66 03/25/20 14:37 O2 Sat by Pulse Oximetry (%) 98 03/25/20 08:48 Labs: CBC, BMP 03/25/20 06:54 03/25/20 06:54
[2020-03-25] MEDS: ATORVASTATIN CA 80 MG TABLET (FP) PO SCH (21:53)
[2020-03-25] MEDS: SULFAMETHOXAZOLE/TRIMETHOPRIM 800MG/160MG D.S. TABLET PO SCH (21:53)
[2020-03-26] MEDS: ACETAMINOPHEN 325 MG TABLET (FP) PO SCH ×5 (00:18→23:24)
[2020-03-26 08:35] LABS: HEMATOCRIT 22.2 % (32.4-45.2); HEMOGLOBIN 7.1 GM/dL (10.7-15.3); MCH 30.1 pg (25.7-33.7); MCHC 32.1 g/dl (32.0-36.0); MEAN CELL VOLUME 93.7 fl (80-96); MEAN PLT VOLUME 7.9 fl (7.5-11.1); PLATELET COUNT 164 K/MM3 (134-434); RBC 2.37 M/mm3 (3.60-5.2); RDW 16.8 % (11.6-15.6); WHITE BLOOD COUNT 11.8 K/mm3 (4.0-10.0)
--- NOTE | 2020-03-26 09:25 | PN ---
Progress Note (short form) - Note Progress Note: Surgery POD #2 right TKA patient seen and examined at bedside with no complaints. Patient states her pain control continues to improve and she has been ambulating with PT. She is tolerating her diet and denies any CP, SOB, N/V, fever or chills. She is reconsidering rescheduling her left TKA tomorrow for another time although she would like to speak with her daughter first. I told her I would check in with her later this afternoon after she has made a decision. Vital Signs Temp 98.4 F 03/26/20 05:56 Pulse 87 03/26/20 05:56 Resp 18 03/26/20 05:56 BP 123/63 03/26/20 05:56 Pulse Ox 98 03/26/20 05:56 Intake & Output 03/25/20 03/25/20 03/26/20 11:59 23:59 11:59 Intake Total 1740 240 240 Output Total 300 350 Balance 1740 -60 -110 Intake: IV 1500 Lactated Ringers Solution 1500 1,000 ml @ 125 mls/hr IV ASDIR ORLY Rx#: [id number] Oral 240 240 240 Output: Urine 300 350 Void 300 350 Other: Voiding Method Bedpan Bedpan Bedpan Bowel Movement No No No CBC, BMP 03/26/20 07:09 03/25/20 06:54 PE: A&Ox3, NAD Unlabored resp on RA right LE ROM full extension with flexion to 30 degrees. Diffuse edema throughout appropriate to status, incision c/d/i with surrounding tissue intact and no tracking erythema or evidence of collection of active d/c. Thigh soft and supple. B/L LE compartments soft, supple and non-tender with +2 DP pulses. Problem List - Problems (1) History of total left knee replacement Assessment/Plan: POD #2 doing well with pain controlled. - OOB with PT and WBAT- up to chair for meals - encourage IS - Continue DvT prophylaxis with B/L Teds/scds, aspirin and early ambulation. - Ice knee 20 mis every hour, keep incision dry - F/u COVID, plan for Left TKA -pending Evaluation and plan discussed with Dr Shetty Code(s): Z96.652 - PRESENCE OF LEFT ARTIFICIAL KNEE JOINT
[2020-03-26] MEDS: FERROUS SO4 325 MG TABLET (FP) PO SCH ×2 (09:36→21:43)
[2020-03-26] MEDS: oxyCODONE HCL 10 MG SUSTAINED ACTING TABLET PO SCH ×2 (09:36→21:44)
[2020-03-26] MEDS: ASCORBIC ACID 500 MG TABLET (FP) PO SCH ×2 (09:36→21:44)
[2020-03-26] MEDS: amLODIPine BESYLATE 5 MG TABLET (FP) PO SCH (09:36)
[2020-03-26] MEDS: SULFAMETHOXAZOLE/TRIMETHOPRIM 800MG/160MG D.S. TABLET PO SCH ×2 (09:36→21:45)
[2020-03-26] MEDS: MULTIVITAMINS (DAILY MVI) TABLET (FP) PO SCH (09:36)
[2020-03-26] MEDS: ASPIRIN COATED 81 MG TABLET.EC PO SCH ×2 (09:36→21:47)
[2020-03-26] MEDS: SENNOSIDES/DOCUSATE COMBO (SENNA PLUS) TABLET (UD) PO SCH ×2 (09:37→21:47)
[2020-03-26] MEDS: NICOTINE 14 MG/24 HOURS TOPICAL PATCH TD PRN (09:41)
[2020-03-26] MEDS: LACTATED RINGERS SOLUTION 1,000 ML IV SCH (11:36)
--- NOTE | 2020-03-26 12:28 | SPA.PREOP ---
- PRE-OP NOTE Dx: Right knee OA/DJD Planned Procedure: Right total knee replacement Surgeon: Sena Last Vital Signs Temp Pulse Resp BP Pulse Ox 98.7 F 105 H 20 142/65 95 03/26/20 09:35 03/26/20 09:35 03/26/20 09:35 03/26/20 09:35 03/26/20 09:35 Lab Results WBC 11.8 K/mm3 (4.0-10.0) H 03/26/20 07:09 RBC 2.37 M/mm3 (3.60-5.2) L 03/26/20 07:09 Hgb 7.1 GM/dL (10.7-15.3) L 03/26/20 07:09 Hct 22.2 % (32.4-45.2) L 03/26/20 07:09 MCV 93.7 fl (80-96) 03/26/20 07:09 MCHC 32.1 g/dl (32.0-36.0) 03/26/20 07:09 RDW 16.8 % (11.6-15.6) H 03/26/20 07:09 Plt Count 164 K/MM3 (134-434) 03/26/20 07:09 Sodium 140 mmol/L (136-145) 03/25/20 06:54 Potassium 4.0 mmol/L (3.5-5.1) 03/25/20 06:54 Chloride 108 mmol/L (98-107) H 03/25/20 06:54 Carbon Dioxide 27 mmol/L (21-32) 03/25/20 06:54 Anion Gap 5 MMOL/L (8-16) L 03/25/20 06:54 BUN 18.2 mg/dL (7-18) H 03/25/20 06:54 Creatinine 0.7 mg/dL (0.55-1.3) 03/25/20 06:54 Random Glucose 124 mg/dL (74-106) H 03/25/20 06:54 Calcium 8.2 mg/dL (8.5-10.1) L 03/25/20 06:54 Blood Type A POSITIVE 03/24/20 06:22 Antibody Screen Negative 03/24/20 06:22 Serology Test 03/25/20 08:20 COVID-19 ([place]) Not detected - ASSESSMENT/PLAN 1. Make NPO after midnight except po meds 2. GI/DVT PPX 3. Medical optimization / clearance 4. 2 pRBC on-hold for OR tomorrow 5. Consent to be obtained by surgeon after risks, benefits and alternatives discussed with patient and or Health Care Proxy. Problem List - Problems (1) Osteoarthritis Code(s): M19.90 - UNSPECIFIED OSTEOARTHRITIS, UNSPECIFIED SITE Qualifiers: Osteoarthritis location: knee Laterality: bilateral (2) Status post total left knee replacement Code(s): Z96.652 - PRESENCE OF LEFT ARTIFICIAL KNEE JOINT (3) Cerebrovascular accident (CVA) Code(s): I63.9 - CEREBRAL INFARCTION, UNSPECIFIED (4) Polysubstance abuse Code(s): F19.10 - OTHER PSYCHOACTIVE SUBSTANCE ABUSE, UNCOMPLICATED (5) Smokes cigarettes Code(s): F17.210 - NICOTINE DEPENDENCE, CIGARETTES, UNCOMPLICATED Visit type - Case Type Case Type: Scheduled - New patient This patient is new to me today: Yes Date on this admission: 03/26/20
[2020-03-26 13:35] LABS: HEMATOCRIT 23.1 % (32.4-45.2); HEMOGLOBIN 7.4 GM/dL (10.7-15.3); MCH 30.3 pg (25.7-33.7); MCHC 32.2 g/dl (32.0-36.0); MEAN PLT VOLUME 8.2 fl (7.5-11.1); PLATELET COUNT 159 K/MM3 (134-434); RBC 2.46 M/mm3 (3.60-5.2); RDW 16.8 % (11.6-15.6); WHITE BLOOD COUNT 10.8 K/mm3 (4.0-10.0)
[2020-03-26] MEDS: ATORVASTATIN CA 80 MG TABLET (FP) PO SCH (21:44)
--- NOTE | 2020-03-26 22:47 | PN ---
Progress Note, Physician - Current Medication List Current Medications: Active Medications Acetaminophen (Tylenol -) 650 mg PO Q6H [facility] Stop: 03/27/20 11:14 Last Admin: 03/26/20 17:56 Dose: 650 mg Documented by: Al Hydroxide/Mg Hydroxide (Mylanta Oral Suspension -) 30 ml PO Q4H PRN PRN Reason: DYSPEPSIA Amlodipine Besylate (Norvasc -) 2.5 mg PO DAILY [facility] Last Admin: 03/26/20 09:36 Dose: 2.5 mg Documented by: Ascorbic Acid (Vitamin C -) 500 mg PO BID [facility] Last Admin: 03/26/20 21:44 Dose: 500 mg Documented by: Aspirin (Ecotrin -) 81 mg PO BID [facility] Last Admin: 03/26/20 21:47 Dose: Not Given Documented by: Atorvastatin Calcium (Lipitor -) 80 mg PO HS [facility] Last Admin: 03/26/20 21:44 Dose: 80 mg Documented by: Fentanyl (Sublimaze Injection -) 50 mcg IVPUSH [id number] PRN PRN Reason: PAIN-PACU ORDER X 4 DOSES ONLY Ferrous Sulfate (Feosol -) 325 mg PO BID [facility] Last Admin: 03/26/20 21:43 Dose: 325 mg Documented by: Lactated Ringer's (Lactated Ringers Solution) 1,000 mls @ 125 mls/hr IV ASDIR [facility] Last Admin: 03/26/20 11:36 Dose: 125 mls/hr Documented by: Magnesium Hydroxide (Milk Of Magnesia -) 30 ml PO PRN PRN PRN Reason: CONSTIPATION Last Admin: 03/25/20 16:42 Dose: 30 ml Documented by: Multivitamins/Minerals/Vitamin C (Tab-A-Vit -) 1 tab PO DAILY [facility] Last Admin: 03/26/20 09:36 Dose: 1 tab Documented by: Nicotine (Nicoderm Patch -) 14 mg TD DAILY PRN PRN Reason: AGITATION Last Admin: 03/26/20 09:41 Dose: 14 mg Documented by: Ondansetron HCl (Zofran Injection) 4 mg IVPUSH Q6H PRN PRN Reason: NAUSEA AND/OR VOMITING Oxycodone HCl (Roxicodone -) 10 mg PO Q3H PRN PRN Reason: PAIN LEVEL 4-6 Last Admin: 03/25/20 16:32 Dose: 10 mg Documented by: Oxycodone HCl (Oxycontin -) 10 mg PO BID [facility] Stop: 03/27/20 11:15 Last Admin: 03/26/20 21:44 Dose: 10 mg Documented by: Oxycodone HCl (Roxicodone -) 5 mg PO Q3H PRN PRN Reason: PAIN LEVEL 1-3 Last Admin: 03/25/20 05:23 Dose: 5 mg Documented by: Pantoprazole Sodium (Protonix -) 40 mg PO DAILY PRN PRN Reason: INDIGESTION Promethazine HCl (Phenergan Injection -) 12.5 mg IVPB Q6H PRN PRN Reason: NAUSEA-FOR RESCUE AFTER 15 MIN Senna/Docusate Sodium (Pericolace -) 2 tablet PO BID [facility] Last Admin: 03/26/20 21:47 Dose: 2 tablet Documented by: Trimethoprim/Sulfamethoxazole (Bactrim Ds -) 1 each PO BID [facility] Last Admin: 03/26/20 21:45 Dose: 1 each Documented by: - Objective Vital Signs: Vital Signs Temperature 98.6 F 03/26/20 14:31 Pulse Rate 98 H 03/26/20 14:31 Respiratory Rate 20 03/26/20 14:31 Blood Pressure 106/56 L 03/26/20 14:31 O2 Sat by Pulse Oximetry (%) 95 03/26/20 09:35 Labs: CBC, BMP 03/26/20 13:06 03/25/20 06:54
[2020-03-27] MEDS: ACETAMINOPHEN 325 MG TABLET (FP) PO SCH (06:15)
[2020-03-27 08:41] LABS: BASO % 0.4 % (0-2.0); EOS % 0.8 % (0-4.5); HEMATOCRIT 25.4 % (32.4-45.2); HEMOGLOBIN 8.4 GM/dL (10.7-15.3); LYMPH % 18.3 % (8-40); MCH 29.5 pg (25.7-33.7); MCHC 32.9 g/dl (32.0-36.0); MEAN CELL VOLUME 89.8 fl (80-96); MEAN PLT VOLUME 8.1 fl (7.5-11.1); NEUT % 73.5 % (42.8-82.8); PLATELET COUNT 161 K/MM3 (134-434); RBC 2.83 M/mm3 (3.60-5.2); RDW 16.8 % (11.6-15.6); WHITE BLOOD COUNT 12.3 K/mm3 (4.0-10.0)
[2020-03-27 09:02] LABS: ALBUMIN 2.2 g/dl (3.4-5.0); BILIRUBIN,TOTAL 0.6 mg/dL (0.2-1); BLOOD UREA NITROGEN 8.6 mg/dL (7-18); CALCIUM 8.3 mg/dL (8.5-10.1); CREATININE 0.5 mg/dL (0.55-1.3); POTASSIUM 3.9 mmol/L (3.5-5.1); TOT PROT 5.4 g/dl (6.4-8.2)
[2020-03-27] MEDS ORDERED: ROPIVACAINE HCL 0.5% 30ML VIAL ONE (09:27)
[2020-03-27] MEDS ORDERED: MIDAZOLAM HCL 2 MG/2 ML SINGLE DOSE VIAL ONE ×2 (09:28→10:24)
[2020-03-27] MEDS ORDERED: BUPIVACAINE 0.75% IN DEXTROSE/PF 2ML AMPULE NR ONE (10:04)
[2020-03-27] MEDS ORDERED: PROPOFOL 20 ML ONE (10:25)
[2020-03-27] MEDS ORDERED: ceFAZolin 2 GRAM PREMIX BAG IVPB ONE (10:30)
[2020-03-27] MEDS ORDERED: LABETALOL HCL 5 MG/1 ML (100MG/20 ML VIAL) ONE (10:48)
[2020-03-27] MEDS ORDERED: ceFAZolin SODIUM 1 GM VIAL ONE (11:12)
--- NOTE | 2020-03-27 11:27 | EKG ---
Test Reason : Blood Pressure : / mmHG Vent. Rate : 086 BPM Atrial Rate : 086 BPM P-R Int : 162 ms QRS Dur : 080 ms QT Int : 370 ms P-R-T Axes : 031 -11 029 degrees QTc Int : 442 ms SINUS RHYTHM WITH OCCASIONAL PREMATURE VENTRICULAR COMPLEXES OTHERWISE NORMAL ECG WHEN COMPARED WITH ECG OF 18-NOV-2019 08:57, PREMATURE VENTRICULAR COMPLEXES ARE NOW PRESENT Confirmed by SHAY SHARMA, SUZAN ([id number]) on 03/27/2020 11:27:08 AM Referred By: ELENA ROBLES DR Confirmed By:SUZAN DAY MD
[2020-03-27] MEDS ORDERED: TRANEXAMIC ACID 1000 MG/10 ML VIAL ONE (11:44)
[2020-03-27] MEDS: FERROUS SO4 325 MG TABLET (FP) PO SCH ×2 (12:48→21:21)
[2020-03-27] MEDS: SULFAMETHOXAZOLE/TRIMETHOPRIM 800MG/160MG D.S. TABLET PO SCH ×2 (12:48→21:24)
[2020-03-27] MEDS: ASPIRIN COATED 81 MG TABLET.EC PO SCH (12:49)
[2020-03-27] MEDS: SENNOSIDES/DOCUSATE COMBO (SENNA PLUS) TABLET (UD) PO SCH ×2 (12:49→21:25)
[2020-03-27] MEDS: amLODIPine BESYLATE 5 MG TABLET (FP) PO SCH (12:49)
[2020-03-27] MEDS: MULTIVITAMINS (DAILY MVI) TABLET (FP) PO SCH (12:49)
[2020-03-27] MEDS: ASCORBIC ACID 500 MG TABLET (FP) PO SCH ×2 (12:50→21:24)
[2020-03-27] MEDS: oxyCODONE HCL 10 MG SUSTAINED ACTING TABLET PO SCH (12:50)
[2020-03-27] MEDS ORDERED: ONDANSETRON 4 MG/2 ML VIAL ONE (12:54)
--- NOTE | 2020-03-27 13:02 | OP ---
Operative Note - Note: Operative Date: 03/27/20 Pre-Operative Diagnosis: Left knee osteoarthritis Operation: Left knee total replacement Post-Operative Diagnosis: Same as Pre-op Surgeon: Brayden Shetty I Stations Superintendent: Jack Cordoba Anesthesiologist/CO TEACHER: Antoni Jimenez Anesthesia: General Estimated Blood Loss (mls): 100 Operative Report Dictated: Yes
--- NOTE | 2020-03-27 13:06 | SURG ---
Surgery Information Management Manager Note Information Management Manager: Jack Cordoba PA-C Date of Service: 03/27/20 Diagnosis: Left knee osteoarthritis Procedure: Left total knee replacement I was present for the entirety of the operative procedure. For further detail, please refer to operative report. Visit type - Case Type Case Type: Scheduled - Emergency Emergency Visit: No - New patient This patient is new to me today: No - Critical Care Critical Care patient: No
[2020-03-27] MEDS ORDERED: PANTOPRAZOLE 40 MG TABLET PO PRN (13:18)
[2020-03-27] MEDS ORDERED: PROMETHAZINE HCL 25 MG/1 ML VIAL IVPB PRN (13:18)
[2020-03-27] MEDS ORDERED: LACTATED RINGERS SOLUTION 1,000 ML IV SCH (13:18)
[2020-03-27] MEDS ORDERED: NICOTINE 14 MG/24 HOURS TOPICAL PATCH TD PRN (13:18)
[2020-03-27] MEDS ORDERED: MAGNESIUM HYDROX 2400MG/30ML ORAL SUSPENSION 30 ML CUP PO PRN (13:18)
[2020-03-27] MEDS ORDERED: MAG HYDROX/AL HYDROX/SIMETH 30 ML UNIT-DOSE CUP PO PRN (13:18)
[2020-03-27] MEDS ORDERED: ONDANSETRON 4 MG/2 ML VIAL IVPUSH PRN (13:18)
[2020-03-27] MEDS ORDERED: HYDROmorphone HCl 2 MG/ML VIAL ONE (13:35)
[2020-03-27] MEDS ORDERED: ACETAMINOPHEN 1000 MG/100 ML VIAL (NON FORMULARY) IVPB PRN (13:36)
[2020-03-27] MEDS ORDERED: HYDROmorphone HCL CARPU-JECT 2 MG/1 ML DISP.SYRIN IVPB PRN (13:37)
[2020-03-27] MEDS ORDERED: oxyCODONE HCL 5 MG TABLET PO PRN (15:05)
[2020-03-27] MEDS: LACTATED RINGERS SOLUTION 1,000 ML IV SCH ×2 (17:22)
[2020-03-27] MEDS: oxyCODONE HCL 5 MG TABLET PO PRN (17:50)
[2020-03-27] MEDS: ATORVASTATIN CA 80 MG TABLET (FP) PO SCH (21:24)
--- NOTE | 2020-03-27 21:51 | PN ---
Progress Note, Physician History of Present Illness: Pt tolerated surgery( Lt TKR) - Current Medication List Current Medications: Active Medications Al Hydroxide/Mg Hydroxide (Mylanta Oral Suspension -) 30 ml PO Q4H PRN PRN Reason: DYSPEPSIA Amlodipine Besylate (Norvasc -) 2.5 mg PO DAILY [facility] Ascorbic Acid (Vitamin C -) 500 mg PO BID [facility] Last Admin: 03/27/20 21:24 Dose: 500 mg Documented by: Aspirin (Ecotrin -) 81 mg PO BID [facility] Last Admin: 03/27/20 21:24 Dose: 81 mg Documented by: Atorvastatin Calcium (Lipitor -) 80 mg PO HS [facility] Last Admin: 03/27/20 21:24 Dose: 80 mg Documented by: Ferrous Sulfate (Feosol -) 325 mg PO BID [facility] Last Admin: 03/27/20 21:21 Dose: 325 mg Documented by: Lactated Ringer's (Lactated Ringers Solution) 1,000 mls @ 75 mls/hr IV ASDIR [facility] Last Admin: 03/27/20 17:22 Dose: Not Given Documented by: Magnesium Hydroxide (Milk Of Magnesia -) 30 ml PO PRN PRN PRN Reason: CONSTIPATION Multivitamins/Minerals/Vitamin C (Tab-A-Vit -) 1 tab PO DAILY [facility] Nicotine (Nicoderm Patch -) 14 mg TD DAILY PRN PRN Reason: AGITATION Last Admin: 03/27/20 21:25 Dose: 14 mg Documented by: Oxycodone HCl (Roxicodone -) 5 mg PO Q4H PRN PRN Reason: PAIN LEVEL 1-5 Oxycodone HCl (Roxicodone -) 10 mg PO Q4H PRN PRN Reason: PAIN LEVEL 6-10 Last Admin: 03/27/20 17:50 Dose: 10 mg Documented by: Rivaroxaban (Xarelto) 10 mg PO DAILY [facility] Senna/Docusate Sodium (Pericolace -) 2 tablet PO BID [facility] Last Admin: 03/27/20 21:25 Dose: 2 tablet Documented by: Trimethoprim/Sulfamethoxazole (Bactrim Ds -) 1 each PO BID [facility] Last Admin: 03/27/20 21:24 Dose: 1 each Documented by: - Objective Vital Signs: Vital Signs Temperature 98.9 F 03/27/20 19:27 Pulse Rate 99 H 03/27/20 19:27 Respiratory Rate 20 07/30/20 19:27 Blood Pressure 120/66 03/27/20 19:27 O2 Sat by Pulse Oximetry (%) 98 03/27/20 18:03 Cardiovascular: Yes: WNL, Regular Rate and Rhythm Respiratory: Yes: WNL, Regular, CTA Bilaterally Gastrointestinal: Yes: WNL, Normal Bowel Sounds, Soft Extremities: Yes: Other ((+) Knees in dressings) Labs: CBC, BMP 03/27/20 07:25 03/27/20 07:25 Problem List - Problems (1) Hypertension Assessment/Plan: BP fluctuating Cont norvasc Code(s): I10 - ESSENTIAL (PRIMARY) HYPERTENSION (2) Status post total right knee replacement Assessment/Plan: Cont pain meds Code(s): Z96.651 - PRESENCE OF RIGHT ARTIFICIAL KNEE JOINT (3) Status post total left knee replacement Assessment/Plan: Cont pain meds Code(s): Z96.652 - PRESENCE OF LEFT ARTIFICIAL KNEE JOINT (4) Anemia Assessment/Plan: S/P multiple blood transfusions Cont to monitor H/H Cont FeSO4 Code(s): D64.9 - ANEMIA, UNSPECIFIED (5) Leukocytosis Assessment/Plan: Pt now on bactrim Monitor WBC Code(s): D72.829 - ELEVATED WHITE BLOOD CELL COUNT, UNSPECIFIED (6) HLD (hyperlipidemia) Assessment/Plan: Cont lipitor Code(s): E78.5 - HYPERLIPIDEMIA, UNSPECIFIED
[2020-03-27] MEDS ORDERED: ASPIRIN COATED 81 MG TABLET.EC PO SCH (22:00)
[2020-03-28] MEDS: oxyCODONE HCL 5 MG TABLET PO PRN ×6 (00:04→21:08)
[2020-03-28 08:31] LABS: BASO % 0.1 % (0-2.0); BLOOD UREA NITROGEN 14.7 mg/dL (7-18); CALCIUM 8.1 mg/dL (8.5-10.1); CREATININE 0.7 mg/dL (0.55-1.3); HEMATOCRIT 27.2 % (32.4-45.2); HEMOGLOBIN 9.1 GM/dL (10.7-15.3); LYMPH % 8.1 % (8-40); MCH 29.6 pg (25.7-33.7); MCHC 33.2 g/dl (32.0-36.0); MEAN CELL VOLUME 88.9 fl (80-96); MEAN PLT VOLUME 7.9 fl (7.5-11.1); MONO % 6.5 % (3.8-10.2); NEUT % 85.3 % (42.8-82.8); PLATELET COUNT 198 K/MM3 (134-434); POTASSIUM 4.6 mmol/L (3.5-5.1); RBC 3.06 M/mm3 (3.60-5.2); RDW 16.9 % (11.6-15.6); WHITE BLOOD COUNT 14.9 K/mm3 (4.0-10.0)
[2020-03-28] MEDS ORDERED: PT OWN MED DRAWER 7, Y5N ONE (09:28)
[2020-03-28] MEDS: amLODIPine BESYLATE 5 MG TABLET (FP) PO SCH (09:40)
[2020-03-28] MEDS: MULTIVITAMINS (DAILY MVI) TABLET (FP) PO SCH (09:40)
[2020-03-28] MEDS: ASCORBIC ACID 500 MG TABLET (FP) PO SCH ×2 (09:40→21:09)
[2020-03-28] MEDS: SULFAMETHOXAZOLE/TRIMETHOPRIM 800MG/160MG D.S. TABLET PO SCH ×2 (09:40→21:09)
[2020-03-28] MEDS: FERROUS SO4 325 MG TABLET (FP) PO SCH ×2 (09:40→21:09)
[2020-03-28] MEDS: RIVAROXABAN 10 MG TABLET PO SCH (09:41)
[2020-03-28] MEDS: SENNOSIDES/DOCUSATE COMBO (SENNA PLUS) TABLET (UD) PO SCH ×2 (09:41→21:09)
--- NOTE | 2020-03-28 11:30 | PN ---
Progress Note (short form) - Note Progress Note: POD 4, s/p R TKR, POD 1 s/p L TKR, s/p 2 units pRBCs secondary to acute blood loss anemia Pt seen and examined. Reports she is feeling well. Has some pain, but managed well with pain meds. Has not been oob since yesterday. Tolerating PO. No n/v. Voiding in bedpan. Denies n/v/d. Vital Signs Temp 99.6 F 03/28/20 09:00 Pulse 97 H 03/28/20 09:00 Resp 16 03/28/20 09:00 BP 147/67 03/28/20 09:00 Pulse Ox 97 03/28/20 10:00 Intake & Output 03/27/20 03/27/20 03/28/20 11:59 23:59 11:59 Intake Total 1100 840 250 Output Total 100 Balance 1000 840 250 Intake: IV 1100 400 Oral 440 250 Blood Product 0 Output: Estimated Blood Loss 100 Other: Voiding Method Bedpan Bedpan Bedpan # Unmeasured Voids Void 1 Bowel Movement No No CBC, BMP 03/28/20 07:30 03/28/20 07:30 Gen: awake, alert, nad Resp: unlabored on RA Ext: RLE with dressing with mild serosanguinous drainage over proximal portion of wound, dressing changed incision c/d/i with holly in place, no erythema or drainage. LLE with ariel c/d/i. b/l les with 1+edema, +ttp around knee (appropriate to status) 5/5 b/l ehl/fhl/pf/df, silt b/l les A/P: 69 y/o F w/ PMHx htn, hld, hep c, admitted for elective b/l knee replacements, now POD 4, s/p R TKR, POD 1 s/p L TKR s/p 2 units pRBCs secondary to acute blood loss anemia low grade fevers overnight (t max 99.6), remainder of vss labs reviewed, h/h 9.1/27.2 exam stable -pain control as ordered by anesthesia -oob with pt, wbat -neurovascular checks per protocol -diet -dvt prophylaxis with Xarelto 10mg qd, b/l scds -bactrim ds bid -Iron/vit c -Monitor h/h, transfuse prn message sent to Dr Shetty regarding above
[2020-03-28] MEDS: LACTATED RINGERS SOLUTION 1,000 ML IV SCH (12:54)
--- NOTE | 2020-03-28 17:47 | PATH ---
Surgical Pathology Report Patient Name: ROVERTO RODRIGUEZ Med. Rec. #: [id number] /Age/Gender: 1950 (Age: 69) / F Account: [id number] Location: [address] [place] [address]/[facility] Taken: 03/27/2020 Received: 03/27/2020 Reported: 03/28/2020 Physicians: Brayden Shetty M.D. Specimen(s) Received LEFT KNEE BONE AND SOFT TISSUE Clinical History Unilateral primary osteoarthritis, left knee Final Diagnosis BONE AND SOFT TISSUE, KNEE, LEFT, TOTAL KNEE REPLACEMENT: BONE WITH DEGENERATIVE JOINT DISEASE AND REACTIVE SYNOVIUM. Electronically Signed Gayle Aguilar M.D. Gross Description Received in formalin labeled "bone and soft tissue left knee" is a 10 x 10 x 3 cm aggregate of multiple portions of bone and soft tissue. The tibial plateau measures 8 x 5 x 1.7 cm. There are focal areas of eburnation identified. The articular surface is littlejohn-yellow and diffusely granular. The underlying trabecular bone is yellow and hard. Fondant Puff Maker sections submitted in one cassette, following decalcification. MLSZ/03/27/2020 santaj/03/27/2020
[2020-03-28] MEDS: ATORVASTATIN CA 80 MG TABLET (FP) PO SCH (21:09)
--- NOTE | 2020-03-28 22:06 | PN ---
Progress Note, Physician - Current Medication List Current Medications: Active Medications Al Hydroxide/Mg Hydroxide (Mylanta Oral Suspension -) 30 ml PO Q4H PRN PRN Reason: DYSPEPSIA Amlodipine Besylate (Norvasc -) 2.5 mg PO DAILY [facility] Last Admin: 03/28/20 09:40 Dose: 2.5 mg Documented by: Ascorbic Acid (Vitamin C -) 500 mg PO BID [facility] Last Admin: 03/28/20 21:09 Dose: 500 mg Documented by: Atorvastatin Calcium (Lipitor -) 80 mg PO HS [facility] Last Admin: 03/28/20 21:09 Dose: 80 mg Documented by: Ferrous Sulfate (Feosol -) 325 mg PO BID [facility] Last Admin: 03/28/20 21:09 Dose: 325 mg Documented by: Lactated Ringer's (Lactated Ringers Solution) 1,000 mls @ 75 mls/hr IV ASDIR [facility] Last Admin: 03/28/20 12:54 Dose: 75 mls/hr Documented by: Magnesium Hydroxide (Milk Of Magnesia -) 30 ml PO PRN PRN PRN Reason: CONSTIPATION Multivitamins/Minerals/Vitamin C (Tab-A-Vit -) 1 tab PO DAILY [facility] Last Admin: 03/28/20 09:40 Dose: 1 tab Documented by: Nicotine (Nicoderm Patch -) 14 mg TD DAILY PRN PRN Reason: AGITATION Last Admin: 03/27/20 21:25 Dose: 14 mg Documented by: Oxycodone HCl (Roxicodone -) 5 mg PO Q4H PRN PRN Reason: PAIN LEVEL 1-5 Oxycodone HCl (Roxicodone -) 10 mg PO Q4H PRN PRN Reason: PAIN LEVEL 6-10 Last Admin: 03/28/20 21:08 Dose: 10 mg Documented by: Rivaroxaban (Xarelto) 10 mg PO DAILY [facility] Last Admin: 03/28/20 09:41 Dose: 10 mg Documented by: Senna/Docusate Sodium (Pericolace -) 2 tablet PO BID [facility] Last Admin: 03/28/20 21:09 Dose: 2 tablet Documented by: Trimethoprim/Sulfamethoxazole (Bactrim Ds -) 1 each PO BID [facility] Last Admin: 03/28/20 21:09 Dose: 1 each Documented by: - Objective Vital Signs: Vital Signs Temperature 99.6 F 03/28/20 21:09 Pulse Rate 109 H 03/28/20 21:09 Respiratory Rate 18 03/28/20 21:09 Blood Pressure 162/85 03/28/20 21:09 O2 Sat by Pulse Oximetry (%) 95 03/28/20 21:09 Labs: CBC, BMP 03/28/20 07:30 03/28/20 07:30
[2020-03-29] MEDS: oxyCODONE HCL 5 MG TABLET PO PRN ×5 (01:30→21:06)
[2020-03-29] MEDS: LACTATED RINGERS SOLUTION 1,000 ML IV SCH ×2 (01:43→14:28)
[2020-03-29] MEDS: ASCORBIC ACID 500 MG TABLET (FP) PO SCH ×2 (10:05→21:06)
[2020-03-29] MEDS: FERROUS SO4 325 MG TABLET (FP) PO SCH ×2 (10:06→21:06)
[2020-03-29] MEDS: amLODIPine BESYLATE 5 MG TABLET (FP) PO SCH (10:06)
[2020-03-29] MEDS: SENNOSIDES/DOCUSATE COMBO (SENNA PLUS) TABLET (UD) PO SCH ×2 (10:06→21:07)
[2020-03-29] MEDS: MULTIVITAMINS (DAILY MVI) TABLET (FP) PO SCH (10:08)
[2020-03-29] MEDS: SULFAMETHOXAZOLE/TRIMETHOPRIM 800MG/160MG D.S. TABLET PO SCH (10:09)
[2020-03-29] MEDS: RIVAROXABAN 10 MG TABLET PO SCH (10:10)
[2020-03-29] MEDS: ACETAMINOPHEN 325 MG TABLET (FP) PO PRN (14:22)
--- NOTE | 2020-03-29 15:06 | CON.ID ---
Consult - History of Present Illness History of Present Illness: 69 y.o. female with PMH of HTN, OA, HLD, Hep C (not treated), anemia s/p Rt TKA POD#5, Lt TKA POD#2 noted to have low grade fevers (currently 100.1F) in the past 2 days and worsening leukocytosis (wbc 14.8K today). Received 2U PRBC for blood loss anemia. Was started empirically on Bactrim PO 2 days ago. She is alert and fully responsive, without distress, currently in bed. Daughter is at bedside. Pt C/O pain in knees especially with bedside PT for which she is taking Oxycodone. She c/o constipation with her last BM 1 wk ago and has been on laxatives. Denies abd pain/n/v/d. Also denies SOB/cough, CP, dysuria, or any other specific complaints. - History Source History Provided By: Patient, Family Member - Past Medical History Cardio/Vascular: Yes: HTN, Hyperlipdemia Hepatobiliary: Yes: Hepatitis C Musculoskeletal: Yes: Osteoarthritis - Past Surgical History Past Surgical History: Yes: Joint Replacement - Alcohol/Substance Use Hx Alcohol Use: No - Smoking History Smoking history: Current every day smoker Have you smoked in the past 12 months: Yes Aproximately how many cigarettes per day: 2 Home Medications - Allergies Allergies/Adverse Reactions: Allergies Allergy/AdvReac Type Severity Reaction Status Date / Time No Known Allergies Allergy Verified 03/24/20 06:51 - Home Medications Home Medications: Ambulatory Orders Amlodipine Besylate 2.5 mg PO DAILY #30 tablet 11/19/19 Aspirin Coated [Ecotrin -] 81 mg PO DAILY #30 tablet.ec 11/19/19 Atorvastatin Ca [Lipitor] 80 mg PO HS #30 tablet 11/19/19 Diclofenac Sodium 50 mg PO PRN PRN 03/20/20 Review of Systems - Review of Systems Constitutional: reports: Loss of Appetite. denies: No Symptoms, Chills, Diaphoresis, Fever, Lethargy, Malaise, Night Sweats, Unintentional Wgt. Loss, Weakness, Other Eyes: reports: No Symptoms. denies: Blind Spots, Blurred Vision, Double Vision, Eye Pain, Floaters, Photophobia, Recent Change in Vision, Other HENT: reports: No Symptoms. denies: Difficult Swallowing, Ear Discharge, Ear Pain, Epistaxis, Gingival Bleeding, Hearing Loss, Mouth Swelling, Nasal Congestion, Ocular Prosthesis, Throat Pain, Toothache, Ringing in Ears, Other Neck: reports: No Symptoms. denies: Decreased ROM, Lumps, Pain on Movement, Stiffness, Swollen Glands, Tenderness, Other Cardiovascular: reports: No Symptoms. denies: Chest Pain, Edema, Palpitations, Shortness of Breath, Other Respiratory: reports: No Symptoms. denies: Cough, Exercise Intolerance, He moptysis, Orthopnea, PND, Snoring, SOB, SOB on Exertion, Wheezing, Other Gastrointestinal: reports: Constipation Genitourinary: reports: No Symptoms. denies: Burning, Discharge, Dysuria, Flank Pain, Frequency, Hematuria, Incontinence, Lesions, Menses, Pain, Testicular Mass, Testicular Pain, Testicular Swelling, Urgency, Vaginal Bleeding, Other Musculoskeletal: reports: Joint Pain (b/l knee pain) Integumentary: reports: No Symptoms. denies: Blister, Bruising, Change in Color, Eczema, Erythema, Incision, Lesions, Lump, Pallor, Pruritis, Rash, Wound, Other Neurological: reports: No Symptoms. denies: Change in LOC, Change in Speech, Confusion, Dizziness, Headache, Incoordination, Numbness, Parasthesia, Pre- Existing Deficit, Seizure, Syncope, Tremors, Unsteady Gait, Weakness, Other Endocrine: reports: No Symptoms. denies: Excessive Sweating, Flushing, Increased Hunger, Increased Thirst, Intolerance to Cold, Intolerance to Heat, Unexplained Weight Gain, Unexplained Weight Loss, Other Hematology/Lymphatic: reports: No Symptoms. denies: Easily Bruised, Excessive Bleeding, Swollen Glands, Other Psychiatric: reports: No Symptoms. denies: Altered Sleep Pattern, Anxiety, Depression, Hallucinations, Panic, Paranoia, Suicidal, Other Physical Exam Vital Signs: Vital Signs Temperature 100.1 F H 03/29/20 05:50 Pulse Rate 108 H 03/29/20 05:50 Respiratory Rate 18 03/29/20 05:50 Blood Pressure 152/71 03/29/20 05:50 O2 Sat by Pulse Oximetry (%) 95 03/29/20 05:50 Constitutional: Yes: No Distress, Calm Eyes: Yes: Conjunctiva Clear, EOM Intact HENT: Yes: Atraumatic Neck: Yes: Supple Cardiovascular: Yes: Tachycardia Respiratory: Yes: CTA Bilaterally Gastrointestinal: Yes: Normal Bowel Sounds, Soft, Abdomen, Obese Renal/: Yes: WNL Extremities: Yes: WNL Integumentary: Yes: WNL Wound/Incision: Yes: Other (b/l knee holly intact, mild serosanguinous drainage on dressing, mild edema b/l with appropriate tenderness) Neurological: Yes: Alert, Oriented Psychiatric: Yes: Alert Labs: CBC, BMP 03/28/20 07:30 03/28/20 07:30 Laboratory Last Values WBC 14.9 K/mm3 (4.0-10.0) H 03/28/20 07:30 RBC 3.06 M/mm3 (3.60-5.2) L 03/28/20 07:30 Hgb 9.1 GM/dL (10.7-15.3) L 03/28/20 07:30 Hct 27.2 % (32.4-45.2) L 03/28/20 07:30 MCV 88.9 fl (80-96) 03/28/20 07:30 MCH 29.6 pg (25.7-33.7) 03/28/20 07:30 MCHC 33.2 g/dl (32.0-36.0) 03/28/20 07:30 RDW 16.9 % (11.6-15.6) H 03/28/20 07:30 Plt Count 198 K/MM3 (134-434) D 03/28/20 07:30 MPV 7.9 fl (7.5-11.1) 03/28/20 07:30 Absolute Neuts (auto) 12.7 K/mm3 (1.5-8.0) H 03/28/20 07:30 Neutrophils % 85.3 % (42.8-82.8) H 03/28/20 07:30 Lymphocytes % 8.1 % (8-40) D 03/28/20 07:30 Monocytes % 6.5 % (3.8-10.2) 03/28/20 07:30 Eosinophils % 0.0 % (0-4.5) D 03/28/20 07:30 Basophils % 0.1 % (0-2.0) 03/28/20 07:30 Nucleated RBC % 0 % (0-0) 03/28/20 07:30 Sodium 137 mmol/L (136-145) 03/28/20 07:30 Potassium 4.6 mmol/L (3.5-5.1) 03/28/20 07:30 Chloride 104 mmol/L (98-107) 03/28/20 07:30 Carbon Dioxide 28 mmol/L (21-32) 03/28/20 07:30 Anion Gap 5 MMOL/L (8-16) L 03/28/20 07:30 BUN 14.7 mg/dL (7-18) 03/28/20 07:30 Creatinine 0.7 mg/dL (0.55-1.3) 03/28/20 07:30 Est GFR (CKD-EPI)AfAm 101.03 03/28/20 07:30 Est GFR (CKD-EPI)NonAf 87.17 03/28/20 07:30 Random Glucose 132 mg/dL (74-106) H 03/28/20 07:30 Calcium 8.1 mg/dL (8.5-10.1) L 03/28/20 07:30 Total Bilirubin 0.6 mg/dL (0.2-1) 03/27/20 07:25 AST 29 U/L (15-37) 03/27/20 07:25 ALT 27 U/L (13-61) 03/27/20 07:25 Alkaline Phosphatase 47 U/L (45-117) 03/27/20 07:25 Total Protein 5.4 g/dl (6.4-8.2) L 03/27/20 07:25 Albumin 2.2 g/dl (3.4-5.0) L 03/27/20 07:25 COVID-19 ([facility]) Not detected (Not Detected) 03/25/20 08:20 Blood Type A POSITIVE 03/26/20 13:06 Antibody Screen Negative 03/26/20 13:06 Crossmatch See Detail 03/26/20 13:06 Imaging - Results X-ray: Report Reviewed Problem List - Problems (1) Anemia Code(s): D64.9 - ANEMIA, UNSPECIFIED (2) Leukocytosis Code(s): D72.829 - ELEVATED WHITE BLOOD CELL COUNT, UNSPECIFIED (3) Status post total left knee replacement Code(s): Z96.652 - PRESENCE OF LEFT ARTIFICIAL KNEE JOINT (4) Status post total right knee replacement Code(s): Z96.651 - PRESENCE OF RIGHT ARTIFICIAL KNEE JOINT (5) HLD (hyperlipidemia) Code(s): E78.5 - HYPERLIPIDEMIA, UNSPECIFIED (6) Hypertension Code(s): I10 - ESSENTIAL (PRIMARY) HYPERTENSION (7) Osteoarthritis Code(s): M19.90 - UNSPECIFIED OSTEOARTHRITIS, UNSPECIFIED SITE Qualifiers: Osteoarthritis location: knee Laterality: bilateral Assessment/Plan 69 y.o. female with PMH of HTN, OA, HLD, Hep C (not treated), anemia s/p Rt TKA POD#5, Lt TKA POD#2 noted to have low grade fevers (currently 100.1F) in the past 2 days and worsening leukocytosis (wbc 14.8K today) Leukocytosis Fever s/p Rt TKA s/p Lt TKA constipation OA Anemia HTN HLD Hep C -- Fever/leukocytosis might be due to post-op inflammation -- Can not entirely r/o surgical site infection. Switch to Vancomycin IV empirically for now. Monitor renal function. -- send blood cultures/UA/Urine cultures -- monitor wbc/temp trend -- management of constipation while on pain medication Will follow Thank you
[2020-03-29 15:28] LABS: EPI CELLS 21 /uL (0-25.1); HYALINE CASTS 0 /uL (0-3.1); PH,URINE 6.5 (5.0-8.0); URINE APPEARANCE CLEAR; URINE BACTERIA 654 /uL (0-1359); URINE BILIRUBIN NEGATIVE (NEGATIVE); URINE COLOR YELLOW; URINE GLUCOSE (UA) NEGATIVE (NEGATIVE); URINE KETONE NEGATIVE (NEGATIVE); URINE LEUK ESTERASE 3+ (NEGATIVE); URINE NITRITE NEGATIVE (NEGATIVE); URINE PROTEIN NEGATIVE (NEGATIVE); URINE RBC 10 /uL (0-23.9); URINE WBC 295 /uL (0-25.8)
[2020-03-29] MEDS ORDERED: PT OWN MED DRAWER 7, Y5N ONE (16:38)
[2020-03-29] MEDS: VANCOMYCIN 1 GRAM (PRE-DOCKED) 1,000 MG/250 ML BAG IVPB SCH (16:44)
[2020-03-29] MEDS ORDERED: PIPERACILLIN/TAZOBACTAM 3.375 GM VIAL IVPB ONE (20:04)
[2020-03-29] MEDS ORDERED: DEXTROSE 5%-WATER - 50 ML IVPB ONE (20:04)
[2020-03-29] MEDS: PIPERACILLIN/TAZOB 3.375 GM 3.375 GM in DEXTROSE 5%-WATER - 50 ML IVPB SCH (20:15)
[2020-03-29] MEDS: ATORVASTATIN CA 80 MG TABLET (FP) PO SCH (21:06)
--- NOTE | 2020-03-29 22:58 | PN ---
Progress Note, Physician - Current Medication List Current Medications: Active Medications Acetaminophen (Tylenol -) 650 mg PO Q6H PRN PRN Reason: FEVER Last Admin: 03/29/20 14:22 Dose: 650 mg Documented by: Al Hydroxide/Mg Hydroxide (Mylanta Oral Suspension -) 30 ml PO Q4H PRN PRN Reason: DYSPEPSIA Amlodipine Besylate (Norvasc -) 2.5 mg PO DAILY [facility] Last Admin: 03/29/20 10:06 Dose: 2.5 mg Documented by: Ascorbic Acid (Vitamin C -) 500 mg PO BID [facility] Last Admin: 03/29/20 21:06 Dose: 500 mg Documented by: Atorvastatin Calcium (Lipitor -) 80 mg PO HS [facility] Last Admin: 03/29/20 21:06 Dose: 80 mg Documented by: Ferrous Sulfate (Feosol -) 325 mg PO BID [facility] Last Admin: 03/29/20 21:06 Dose: 325 mg Documented by: Lactated Ringer's (Lactated Ringers Solution) 1,000 mls @ 75 mls/hr IV ASDIR S Last Admin: 03/29/20 14:28 Dose: 75 mls/hr Documented by: Vancomycin HCl (Vancomycin (Pre-Docked)) 1,000 mg in 250 mls @ 166.667 mls/hr IVPB Q12H [facility]; Protocol Last Admin: 03/29/20 16:44 Dose: 166.667 mls/hr Documented by: Piperacillin Sod/Tazobactam (Sod 3.375 gm/ Dextrose) 50 mls @ 100 mls/hr IVPB Q8H-IV [facility]; Protocol Last Admin: 03/29/20 20:15 Dose: 100 mls/hr Documented by: Magnesium Hydroxide (Milk Of Magnesia -) 30 ml PO PRN PRN PRN Reason: CONSTIPATION Multivitamins/Minerals/Vitamin C (Tab-A-Vit -) 1 tab PO DAILY [facility] Last Admin: 03/29/20 10:08 Dose: 1 tab Documented by: Nicotine (Nicoderm Patch -) 14 mg TD DAILY PRN PRN Reason: AGITATION Last Admin: 03/27/20 21:25 Dose: 14 mg Documented by: Oxycodone HCl (Roxicodone -) 5 mg PO Q4H PRN PRN Reason: PAIN LEVEL 1-5 Oxycodone HCl (Roxicodone -) 10 mg PO Q4H PRN PRN Reason: PAIN LEVEL 6-10 Last Admin: 03/29/20 21:06 Dose: 10 mg Documented by: Rivaroxaban (Xarelto) 10 mg PO DAILY [facility] Last Admin: 03/29/20 10:10 Dose: 10 mg Documented by: Senna/Docusate Sodium (Pericolace -) 2 tablet PO BID [facility] Last Admin: 03/29/20 21:07 Dose: 2 tablet Documented by: - Objective Vital Signs: Vital Signs Temperature 99.5 F 03/29/20 21:15 Pulse Rate 97 H 03/29/20 21:15 Respiratory Rate 18 03/29/20 05:50 Blood Pressure 131/74 03/29/20 21:15 O2 Sat by Pulse Oximetry (%) 99 03/29/20 21:15 Labs: CBC, BMP 03/28/20 07:30 03/28/20 07:30
[2020-03-30] MEDS: oxyCODONE HCL 5 MG TABLET PO PRN ×6 (01:21→22:37)
[2020-03-30] MEDS ORDERED: PIPERACILLIN/TAZOBACTAM 3.375 GM VIAL IVPB ONE ×4 (02:15→17:19)
[2020-03-30] MEDS ORDERED: DEXTROSE 5%-WATER - 50 ML IVPB ONE ×4 (02:16→17:19)
[2020-03-30] MEDS: PIPERACILLIN/TAZOB 3.375 GM 3.375 GM in DEXTROSE 5%-WATER - 50 ML IVPB SCH ×3 (02:19→17:59)
[2020-03-30] MEDS: VANCOMYCIN 1 GRAM (PRE-DOCKED) 1,000 MG/250 ML BAG IVPB SCH ×2 (04:20→14:33)
[2020-03-30] MEDS: LACTATED RINGERS SOLUTION 1,000 ML IV SCH ×2 (08:56→15:01)
[2020-03-30 09:01] LABS: BASO % 0.5 % (0-2.0); EOS % 1.9 % (0-4.5); HEMATOCRIT 25.4 % (32.4-45.2); HEMOGLOBIN 8.3 GM/dL (10.7-15.3); MCH 29.5 pg (25.7-33.7); MCHC 32.6 g/dl (32.0-36.0); MEAN CELL VOLUME 90.4 fl (80-96); MEAN PLT VOLUME 7.4 fl (7.5-11.1); MONO % 8.8 % (3.8-10.2); NEUT % 70.8 % (42.8-82.8); PLATELET COUNT 226 K/MM3 (134-434); RBC 2.81 M/mm3 (3.60-5.2); RDW 16.4 % (11.6-15.6)
[2020-03-30] MEDS ORDERED: PT OWN MED DRAWER 7, Y5N ONE (09:01)
[2020-03-30] MEDS: FERROUS SO4 325 MG TABLET (FP) PO SCH ×2 (09:07→21:09)
[2020-03-30] MEDS: amLODIPine BESYLATE 5 MG TABLET (FP) PO SCH (09:07)
[2020-03-30] MEDS: MULTIVITAMINS (DAILY MVI) TABLET (FP) PO SCH (09:07)
[2020-03-30] MEDS: SENNOSIDES/DOCUSATE COMBO (SENNA PLUS) TABLET (UD) PO SCH ×2 (09:07→21:08)
[2020-03-30] MEDS: RIVAROXABAN 10 MG TABLET PO SCH (09:07)
[2020-03-30] MEDS: ASCORBIC ACID 500 MG TABLET (FP) PO SCH ×2 (09:09→21:08)
[2020-03-30] MEDS: ACETAMINOPHEN 325 MG TABLET (FP) PO PRN ×2 (09:15→21:08)
[2020-03-30 09:33] LABS: ALBUMIN 2.1 g/dl (3.4-5.0); BILIRUBIN,TOTAL 1.1 mg/dL (0.2-1); BLOOD UREA NITROGEN 14.4 mg/dL (7-18); CALCIUM 8.2 mg/dL (8.5-10.1); CREATININE 0.7 mg/dL (0.55-1.3); POTASSIUM 4.2 mmol/L (3.5-5.1); TOT PROT 5.4 g/dl (6.4-8.2)
[2020-03-30] MEDS ORDERED: oxyCODONE HCL 5 MG TABLET PO PRN (16:47)
--- NOTE | 2020-03-30 19:56 | PN ---
Progress Note, Physician History of Present Illness: Pt is alert, without distress. c/o pain in knees b/l but ok at rest/nighttime. Temp 99.5F this am, currently afebrile. wbc decreased from yesterday. No other complaints. - Current Medication List Current Medications: Active Medications Acetaminophen (Tylenol -) 650 mg PO Q6H PRN PRN Reason: FEVER Last Admin: 03/30/20 09:15 Dose: 650 mg Documented by: Al Hydroxide/Mg Hydroxide (Mylanta Oral Suspension -) 30 ml PO Q4H PRN PRN Reason: DYSPEPSIA Amlodipine Besylate (Norvasc -) 2.5 mg PO DAILY [facility] Last Admin: 03/30/20 09:07 Dose: 2.5 mg Documented by: Ascorbic Acid (Vitamin C -) 500 mg PO BID [facility] Last Admin: 03/30/20 09:09 Dose: 500 mg Documented by: Atorvastatin Calcium (Lipitor -) 80 mg PO HS [facility] Last Admin: 03/29/20 21:06 Dose: 80 mg Documented by: Ferrous Sulfate (Feosol -) 325 mg PO BID [facility] Last Admin: 03/30/20 09:07 Dose: 325 mg Documented by: Lactated Ringer's (Lactated Ringers Solution) 1,000 mls @ 75 mls/hr IV ASDIR [facility] Last Admin: 03/30/20 15:01 Dose: Not Given Documented by: Vancomycin HCl (Vancomycin (Pre-Docked)) 1,000 mg in 250 mls @ 166.667 mls/hr IVPB Q12H [facility]; Protocol Last Admin: 03/30/20 14:33 Dose: 166.667 mls/hr Documented by: Piperacillin Sod/Tazobactam (Sod 3.375 gm/ Dextrose) 50 mls @ 100 mls/hr IVPB Q8H-IV [facility]; Protocol Last Admin: 03/30/20 17:59 Dose: 100 mls/hr Documented by: Magnesium Hydroxide (Milk Of Magnesia -) 30 ml PO PRN PRN PRN Reason: CONSTIPATION Multivitamins/Minerals/Vitamin C (Tab-A-Vit -) 1 tab PO DAILY [facility] Last Admin: 03/30/20 09:07 Dose: 1 tab Documented by: Nicotine (Nicoderm Patch -) 14 mg TD DAILY PRN PRN Reason: AGITATION Last Admin: 03/27/20 21:25 Dose: 14 mg Documented by: Oxycodone HCl (Roxicodone -) 10 mg PO Q4H PRN PRN Reason: PAIN LEVEL 6-10 Last Admin: 03/30/20 18:38 Dose: 10 mg Documented by: Oxycodone HCl (Roxicodone -) 5 mg PO Q4H PRN PRN Reason: PAIN LEVEL 1-5 Rivaroxaban (Xarelto) 10 mg PO DAILY [facility] Last Admin: 03/30/20 09:07 Dose: 10 mg Documented by: Senna/Docusate Sodium (Pericolace -) 2 tablet PO BID [facility] Last Admin: 03/30/20 09:07 Dose: 2 tablet Documented by: - Objective Vital Signs: Vital Signs Temperature 98.5 F 03/30/20 14:00 Pulse Rate 88 03/30/20 14:00 Respiratory Rate 20 03/30/20 14:00 Blood Pressure 125/54 L 03/30/20 14:00 O2 Sat by Pulse Oximetry (%) 97 03/30/20 14:00 Constitutional: Yes: No Distress, Calm Cardiovascular: Yes: Regular Rate and Rhythm Respiratory: Yes: Regular Gastrointestinal: Yes: Normal Bowel Sounds, Soft, Abdomen, Obese Genitourinary: Yes: WNL Extremities: Yes: WNL Wound/Incision: Yes: Dressing Dry and Intact (b/l knees) Neurological: Yes: Alert, Oriented Labs: CBC, BMP 03/30/20 08:14 03/30/20 08:14 Laboratory Last Values WBC 12.0 K/mm3 (4.0-10.0) H 03/30/20 08:14 RBC 2.81 M/mm3 (3.60-5.2) L 03/30/20 08:14 Hgb 8.3 GM/dL (10.7-15.3) L 03/30/20 08:14 Hct 25.4 % (32.4-45.2) L 03/30/20 08:14 MCV 90.4 fl (80-96) 03/30/20 08:14 MCH 29.5 pg (25.7-33.7) 03/30/20 08:14 MCHC 32.6 g/dl (32.0-36.0) 03/30/20 08:14 RDW 16.4 % (11.6-15.6) H 03/30/20 08:14 Plt Count 226 K/MM3 (134-434) 03/30/20 08:14 MPV 7.4 fl (7.5-11.1) L 03/30/20 08:14 Absolute Neuts (auto) 8.5 K/mm3 (1.5-8.0) H 03/30/20 08:14 Neutrophils % 70.8 % (42.8-82.8) 03/30/20 08:14 Lymphocytes % 18.0 % (8-40) D 03/30/20 08:14 Monocytes % 8.8 % (3.8-10.2) 03/30/20 08:14 Eosinophils % 1.9 % (0-4.5) D 03/30/20 08:14 Basophils % 0.5 % (0-2.0) D 03/30/20 08:14 Nucleated RBC % 0 % (0-0) 03/30/20 08:14 Sodium 134 mmol/L (136-145) L 03/30/20 08:14 Potassium 4.2 mmol/L (3.5-5.1) 03/30/20 08:14 Chloride 100 mmol/L (98-107) 03/30/20 08:14 Carbon Dioxide 26 mmol/L (21-32) 03/30/20 08:14 Anion Gap 8 MMOL/L (8-16) 03/30/20 08:14 BUN 14.4 mg/dL (7-18) 03/30/20 08:14 Creatinine 0.7 mg/dL (0.55-1.3) 03/30/20 08:14 Est GFR (CKD-EPI)AfAm 101.03 03/30/20 08:14 Est GFR (CKD-EPI)NonAf 87.17 03/30/20 08:14 Random Glucose 124 mg/dL (74-106) H 03/30/20 08:14 Calcium 8.2 mg/dL (8.5-10.1) L 03/30/20 08:14 Total Bilirubin 1.1 mg/dL (0.2-1) H 03/30/20 08:14 AST 38 U/L (15-37) H 03/30/20 08:14 ALT 33 U/L (13-61) 03/30/20 08:14 Alkaline Phosphatase 47 U/L (45-117) 03/30/20 08:14 Total Protein 5.4 g/dl (6.4-8.2) L 03/30/20 08:14 Albumin 2.1 g/dl (3.4-5.0) L 03/30/20 08:14 Urine Color Yellow 03/29/20 14:39 Urine Appearance Clear 03/29/20 14:39 Urine pH 6.5 (5.0-8.0) 03/29/20 14:39 Ur Specific [place] 1.015 (1.010-1.035) 03/29/20 14:39 Urine Protein Negative (NEGATIVE) 03/29/20 14:39 Urine Glucose (UA) Negative (NEGATIVE) 03/29/20 14:39 Urine Ketones Negative (NEGATIVE) 03/29/20 14:39 Urine Blood Negative (NEGATIVE) 03/29/20 14:39 Urine Nitrite Negative (NEGATIVE) 03/29/20 14:39 Urine Bilirubin Negative (NEGATIVE) 03/29/20 14:39 Urine Urobilinogen 2.0 mg/dL (0.2-1.0) H 03/29/20 14:39 Ur Leukocyte Esterase 3+ (NEGATIVE) H 03/29/20 14:39 Urine WBC (Auto) 295 /uL (0-25.8) 03/29/20 14:39 Urine RBC (Auto) 10 /uL (0-23.9) 03/29/20 14:39 Urine Casts (Auto) 0 /uL (0-3.1) 03/29/20 14:39 U Epithel Cells (Auto) 21 /uL (0-25.1) 03/29/20 14:39 Urine Bacteria (Auto) 654 /uL (0-1359) 03/29/20 14:39 COVID-19 ([facility]) Not detected (Not Detected) 03/25/20 08:20 Blood Type A POSITIVE 03/26/20 13:06 Antibody Screen Negative 03/26/20 13:06 Crossmatch See Detail 03/26/20 13:06 blood and urine culture results pending Problem List - Problems (1) Anemia Code(s): D64.9 - ANEMIA, UNSPECIFIED (2) Leukocytosis Code(s): D72.829 - ELEVATED WHITE BLOOD CELL COUNT, UNSPECIFIED (3) Status post total left knee replacement Code(s): Z96.652 - PRESENCE OF LEFT ARTIFICIAL KNEE JOINT (4) Status post total right knee replacement Code(s): Z96.651 - PRESENCE OF RIGHT ARTIFICIAL KNEE JOINT (5) HLD (hyperlipidemia) Code(s): E78.5 - HYPERLIPIDEMIA, UNSPECIFIED (6) Hypertension Code(s): I10 - ESSENTIAL (PRIMARY) HYPERTENSION (7) Osteoarthritis Code(s): M19.90 - UNSPECIFIED OSTEOARTHRITIS, UNSPECIFIED SITE Qualifiers: Osteoarthritis location: knee Laterality: bilateral Assessment/Plan UTI Leukocytosis Fever s/p Rt TKA s/p Lt TKA constipation OA Anemia HTN HLD Hep C -- currently afebrile, wbc decreased since yesterday -- continue current antibiotics for now, follow up urine/blood culture results- de-escalate based on results if continues to improve -- repeat cbc/bmp in a.m., monitor wbc trend/renal function and temps -- Vancomycin trough tomorrow -ordered -- pain control
[2020-03-30] MEDS: ATORVASTATIN CA 80 MG TABLET (FP) PO SCH (21:08)
--- NOTE | 2020-03-30 22:15 | PN ---
Progress Note, Physician History of Present Illness: Pt still complains of pain - Current Medication List Current Medications: Active Medications Acetaminophen (Tylenol -) 650 mg PO Q6H PRN PRN Reason: FEVER Last Admin: 03/30/20 21:08 Dose: 650 mg Documented by: Al Hydroxide/Mg Hydroxide (Mylanta Oral Suspension -) 30 ml PO Q4H PRN PRN Reason: DYSPEPSIA Amlodipine Besylate (Norvasc -) 2.5 mg PO DAILY [facility] Last Admin: 03/30/20 09:07 Dose: 2.5 mg Documented by: Ascorbic Acid (Vitamin C -) 500 mg PO BID [facility] Last Admin: 03/30/20 21:08 Dose: 500 mg Documented by: Atorvastatin Calcium (Lipitor -) 80 mg PO HS [facility] Last Admin: 03/30/20 21:08 Dose: 80 mg Documented by: Ferrous Sulfate (Feosol -) 325 mg PO BID [facility] Last Admin: 03/30/20 21:09 Dose: 325 mg Documented by: Lactated Ringer's (Lactated Ringers Solution) 1,000 mls @ 75 mls/hr IV ASDIR [facility] Last Admin: 03/30/20 15:01 Dose: Not Given Documented by: Vancomycin HCl (Vancomycin (Pre-Docked)) 1,000 mg in 250 mls @ 166.667 mls/hr IVPB Q12H [facility]; Protocol Last Admin: 03/30/20 14:33 Dose: 166.667 mls/hr Documented by: Piperacillin Sod/Tazobactam (Sod 3.375 gm/ Dextrose) 50 mls @ 100 mls/hr IVPB Q8H-IV [facility]; Protocol Last Admin: 03/30/20 17:59 Dose: 100 mls/hr Documented by: Magnesium Hydroxide (Milk Of Magnesia -) 30 ml PO PRN PRN PRN Reason: CONSTIPATION Multivitamins/Minerals/Vitamin C (Tab-A-Vit -) 1 tab PO DAILY [facility] Last Admin: 03/30/20 09:07 Dose: 1 tab Documented by: Nicotine (Nicoderm Patch -) 14 mg TD DAILY PRN PRN Reason: AGITATION Last Admin: 03/27/20 21:25 Dose: 14 mg Documented by: Oxycodone HCl (Roxicodone -) 10 mg PO Q4H PRN PRN Reason: PAIN LEVEL 6-10 Last Admin: 03/30/20 18:38 Dose: 10 mg Documented by: Oxycodone HCl (Roxicodone -) 5 mg PO Q4H PRN PRN Reason: PAIN LEVEL 1-5 Rivaroxaban (Xarelto) 10 mg PO DAILY [facility] Last Admin: 03/30/20 09:07 Dose: 10 mg Documented by: Senna/Docusate Sodium (Pericolace -) 2 tablet PO BID [facility] Last Admin: 03/30/20 21:08 Dose: 2 tablet Documented by: - Objective Vital Signs: Vital Signs Temperature 98.5 F 03/30/20 14:00 Pulse Rate 88 03/30/20 14:00 Respiratory Rate 20 03/30/20 14:00 Blood Pressure 125/54 L 03/30/20 14:00 O2 Sat by Pulse Oximetry (%) 97 03/30/20 14:00 Cardiovascular: Yes: WNL, Regular Rate and Rhythm Respiratory: Yes: WNL, Regular, CTA Bilaterally Gastrointestinal: Yes: WNL, Normal Bowel Sounds, Soft, Abdomen, Obese Extremities: Yes: Other (B/L knee swelling) Edema: LLE: Trace, RLE: Trace Labs: CBC, BMP 03/30/20 08:14 03/30/20 08:14 Problem List - Problems (1) Anemia Assessment/Plan: S/P multiple blood transfusions Cont to monitor H/H Cont FeSO4 H/H remains stable Code(s): D64.9 - ANEMIA, UNSPECIFIED (2) Leukocytosis Assessment/Plan: Cont IV Zosyn/vanco BC remain negative Urine culture remains negative WBC slowly decreasing Code(s): D72.829 - ELEVATED WHITE BLOOD CELL COUNT, UNSPECIFIED (3) Status post total left knee replacement Assessment/Plan: Cont pain meds Code(s): Z96.652 - PRESENCE OF LEFT ARTIFICIAL KNEE JOINT (4) Status post total right knee replacement Assessment/Plan: Cont pain meds Code(s): Z96.651 - PRESENCE OF RIGHT ARTIFICIAL KNEE JOINT (5) Hypertension Assessment/Plan: BP stable Cont norvasc Code(s): I10 - ESSENTIAL (PRIMARY) HYPERTENSION (6) HLD (hyperlipidemia) Assessment/Plan: Cont lipitor Code(s): E78.5 - HYPERLIPIDEMIA, UNSPECIFIED (7) Osteoarthritis Code(s): M19.90 - UNSPECIFIED OSTEOARTHRITIS, UNSPECIFIED SITE Qualifiers: Osteoarthritis location: knee Laterality: bilateral
[2020-03-31] MEDS ORDERED: PIPERACILLIN/TAZOBACTAM 3.375 GM VIAL IVPB ONE ×3 (02:34→16:11)
[2020-03-31] MEDS ORDERED: DEXTROSE 5%-WATER - 50 ML IVPB ONE ×3 (02:34→16:11)
[2020-03-31] MEDS: PIPERACILLIN/TAZOB 3.375 GM 3.375 GM in DEXTROSE 5%-WATER - 50 ML IVPB SCH ×3 (02:38→17:03)
[2020-03-31] MEDS: VANCOMYCIN 1 GRAM (PRE-DOCKED) 1,000 MG/250 ML BAG IVPB SCH (03:47)
[2020-03-31] MEDS: oxyCODONE HCL 5 MG TABLET PO PRN ×3 (06:43→17:22)
[2020-03-31 08:09] LABS: BASO % 0.5 % (0-2.0); EOS % 3.1 % (0-4.5); HEMOGLOBIN 7.9 GM/dL (10.7-15.3); LYMPH % 17.4 % (8-40); MCH 29.4 pg (25.7-33.7); MCHC 33.1 g/dl (32.0-36.0); MEAN CELL VOLUME 88.9 fl (80-96); MEAN PLT VOLUME 6.6 fl (7.5-11.1); PLATELET COUNT 284 K/MM3 (134-434); RDW 16.1 % (11.6-15.6); WHITE BLOOD COUNT 8.9 K/mm3 (4.0-10.0)
[2020-03-31 08:30] LABS: ALBUMIN 2.1 g/dl (3.4-5.0); BILIRUBIN,TOTAL 0.7 mg/dL (0.2-1); BLOOD UREA NITROGEN 12.2 mg/dL (7-18); CALCIUM 8.2 mg/dL (8.5-10.1); CREATININE 0.6 mg/dL (0.55-1.3); TOT PROT 5.5 g/dl (6.4-8.2)
[2020-03-31] MEDS: SENNOSIDES/DOCUSATE COMBO (SENNA PLUS) TABLET (UD) PO SCH ×2 (09:28→21:33)
[2020-03-31] MEDS: FERROUS SO4 325 MG TABLET (FP) PO SCH ×2 (09:28→21:33)
[2020-03-31] MEDS: amLODIPine BESYLATE 5 MG TABLET (FP) PO SCH (09:28)
[2020-03-31] MEDS: ASCORBIC ACID 500 MG TABLET (FP) PO SCH ×2 (09:31→21:33)
[2020-03-31] MEDS: RIVAROXABAN 10 MG TABLET PO SCH (09:31)
[2020-03-31] MEDS: MULTIVITAMINS (DAILY MVI) TABLET (FP) PO SCH (09:31)
--- NOTE | 2020-03-31 10:01 | PN ---
Progress Note (short form) - Note Progress Note: POD 7, s/p R TKR, POD 4 s/p L TKR, s/p 2 units pRBCs secondary to acute blood loss anemia Pt seen and examined. Reports she is feeling well. Has some pain, but managed well with pain meds. Was oob [id number], ambulated a few feet from the bed to the wall. Tolerating PO. No n/v. Denies n/v/d. Vital Signs Temp 98.4 F 03/31/20 05:00 Pulse 94 H 03/31/20 05:00 Resp 20 03/30/20 23:00 BP 123/55 L 03/31/20 05:00 Pulse Ox 96 03/31/20 05:00 Intake & Output 03/30/20 03/30/20 03/31/20 11:59 23:59 11:59 Intake Total 1250 1570 Output Total 7 Balance 1250 1563 Intake: IV 900 900 Lactated Ringers Solution 900 900 1,000 ml @ 75 mls/hr IV ASDIR [facility] Rx#:[id number] IVPB 350 350 Oral 320 Output: Urine 7 Void 7 Other: Voiding Method Bedpan Bedpan Bowel Movement No No CBC, BMP 03/31/20 07:58 03/31/20 07:58 Gen: awake, alert, nad Resp: unlabored on RA Ext: RLE with dressing c/d/i, no erythema or drainage noted. LLE with dressing c/d/i, no erythema or drainage noted. b/l les with 1+edema, +ttp around knee (appropriate to status) 5/5 b/l ehl/fhl/pf/df, silt b/l les A/P: 69 y/o F w/ PMHx htn, hld, hep c, admitted for elective b/l knee replacements, now POD 7, s/p R TKR, POD 4 s/p L TKR s/p 2 units pRBCs secondary to acute blood loss anemia fevers over the weekend with rising leukocytosis, ID consulted Vanco and Zosyn initiated for concern of UTI h/h trending down exam stable -pain control as ordered -oob with pt, wbat -neurovascular checks per protocol -diet -dvt prophylaxis with Xarelto 10mg qd, b/l scds -bactrim ds bid on discharge for 2 weeks -Iron/vit c -Monitor h/h, transfuse prn above d/w attending Dr Shetty
--- NOTE | 2020-03-31 11:04 | PN ---
Progress Note, Physician History of Present Illness: stable mainly pain issues - Current Medication List Current Medications: Active Medications Acetaminophen (Tylenol -) 650 mg PO Q6H PRN PRN Reason: FEVER Last Admin: 03/30/20 21:08 Dose: 650 mg Documented by: Al Hydroxide/Mg Hydroxide (Mylanta Oral Suspension -) 30 ml PO Q4H PRN PRN Reason: DYSPEPSIA Amlodipine Besylate (Norvasc -) 2.5 mg PO DAILY [facility] Last Admin: 03/31/20 09:28 Dose: 2.5 mg Documented by: Ascorbic Acid (Vitamin C -) 500 mg PO BID [facility] Last Admin: 03/31/20 09:31 Dose: 500 mg Documented by: Atorvastatin Calcium (Lipitor -) 80 mg PO HS [facility] Last Admin: 03/30/20 21:08 Dose: 80 mg Documented by: Ferrous Sulfate (Feosol -) 325 mg PO BID [facility] Last Admin: 03/31/20 09:28 Dose: 325 mg Documented by: Lactated Ringer's (Lactated Ringers Solution) 1,000 mls @ 75 mls/hr IV ASDIR [facility] Last Admin: 03/30/20 15:01 Dose: Not Given Documented by: Piperacillin Sod/Tazobactam (Sod 3.375 gm/ Dextrose) 50 mls @ 100 mls/hr IVPB Q8H-IV [facility]; Protocol Last Admin: 03/31/20 09:31 Dose: 100 mls/hr Documented by: Magnesium Hydroxide (Milk Of Magnesia -) 30 ml PO PRN PRN PRN Reason: CONSTIPATION Multivitamins/Minerals/Vitamin C (Tab-A-Vit -) 1 tab PO DAILY [facility] Last Admin: 03/31/20 09:31 Dose: 1 tab Documented by: Nicotine (Nicoderm Patch -) 14 mg TD DAILY PRN PRN Reason: AGITATION Last Admin: 03/27/20 21:25 Dose: 14 mg Documented by: Oxycodone HCl (Roxicodone -) 10 mg PO Q4H PRN PRN Reason: PAIN LEVEL 6-10 Last Admin: 03/31/20 10:38 Dose: 10 mg Documented by: Oxycodone HCl (Roxicodone -) 5 mg PO Q4H PRN PRN Reason: PAIN LEVEL 1-5 Last Admin: 03/31/20 02:44 Dose: 5 mg Documented by: Rivaroxaban (Xarelto) 10 mg PO DAILY [facility] Last Admin: 03/31/20 09:31 Dose: 10 mg Documented by: Senna/Docusate Sodium (Pericolace -) 2 tablet PO BID [facility] Last Admin: 03/31/20 09:28 Dose: 2 tablet Documented by: - Objective Vital Signs: Vital Signs Temperature 98.4 F 03/31/20 05:00 Pulse Rate 94 H 03/31/20 05:00 Respiratory Rate 20 03/30/20 23:00 Blood Pressure 123/55 L 03/31/20 05:00 O2 Sat by Pulse Oximetry (%) 96 03/31/20 05:00 Constitutional: Yes: No Distress, Calm Cardiovascular: Yes: S1, S2 Respiratory: Yes: Regular, CTA Bilaterally Gastrointestinal: Yes: Normal Bowel Sounds, Soft Musculoskeletal: Yes: Other Extremities: Yes: Other (post op swelling of the knee joints) Wound/Incision: Yes: Clean/Dry, Dressing Dry and Intact Neurological: Yes: Alert, Oriented Psychiatric: Yes: Alert, Oriented Labs: CBC, BMP 03/31/20 07:58 03/31/20 07:58 Assessment/Plan Problem List - Problems (1) Anemia Code(s): D64.9 - ANEMIA, UNSPECIFIED (2) Leukocytosis Code(s): D72.829 - ELEVATED WHITE BLOOD CELL COUNT, UNSPECIFIED (3) Status post total left knee replacement Code(s): Z96.652 - PRESENCE OF LEFT ARTIFICIAL KNEE JOINT (4) Status post total right knee replacement Code(s): Z96.651 - PRESENCE OF RIGHT ARTIFICIAL KNEE JOINT (5) HLD (hyperlipidemia) Code(s): E78.5 - HYPERLIPIDEMIA, UNSPECIFIED (6) Hypertension Code(s): I10 - ESSENTIAL (PRIMARY) HYPERTENSION (7) Osteoarthritis Code(s): M19.90 - UNSPECIFIED OSTEOARTHRITIS, UNSPECIFIED SITE Qualifiers: Osteoarthritis location: knee Laterality: bilateral Assessment/Plan UTI Leukocytosis Fever s/p Rt TKA s/p Lt TKA constipation OA Anemia HTN HLD Hep C wbc hs normalized urine cx results noted await for identifiction of organisms will stop vanco continue zosyn for now rest as per the team
--- NOTE | 2020-03-31 17:23 | PN ---
Progress Note, Physician History of Present Illness: stable - Current Medication List Current Medications: Active Medications Acetaminophen (Tylenol -) 650 mg PO Q6H PRN PRN Reason: FEVER Last Admin: 03/30/20 21:08 Dose: 650 mg Documented by: Al Hydroxide/Mg Hydroxide (Mylanta Oral Suspension -) 30 ml PO Q4H PRN PRN Reason: DYSPEPSIA Amlodipine Besylate (Norvasc -) 2.5 mg PO DAILY [facility] Last Admin: 03/31/20 09:28 Dose: 2.5 mg Documented by: Ascorbic Acid (Vitamin C -) 500 mg PO BID [facility] Last Admin: 03/31/20 09:31 Dose: 500 mg Documented by: Atorvastatin Calcium (Lipitor -) 80 mg PO HS [facility] Last Admin: 03/30/20 21:08 Dose: 80 mg Documented by: Ferrous Sulfate (Feosol -) 325 mg PO BID [facility] Last Admin: 03/31/20 09:28 Dose: 325 mg Documented by: Piperacillin Sod/Tazobactam (Sod 3.375 gm/ Dextrose) 50 mls @ 100 mls/hr IVPB Q8H-IV [facility]; Protocol Last Admin: 03/31/20 17:03 Dose: 100 mls/hr Documented by: Magnesium Hydroxide (Milk Of Magnesia -) 30 ml PO PRN PRN PRN Reason: CONSTIPATION Last Admin: 03/31/20 14:02 Dose: 30 ml Documented by: Multivitamins/Minerals/Vitamin C (Tab-A-Vit -) 1 tab PO DAILY [facility] Last Admin: 03/31/20 09:31 Dose: 1 tab Documented by: Nicotine (Nicoderm Patch -) 14 mg TD DAILY PRN PRN Reason: AGITATION Last Admin: 03/27/20 21:25 Dose: 14 mg Documented by: Oxycodone HCl (Roxicodone -) 10 mg PO Q6H PRN PRN Reason: PAIN LEVEL 6-10 Rivaroxaban (Xarelto) 10 mg PO DAILY [facility] Last Admin: 03/31/20 09:31 Dose: 10 mg Documented by: Senna/Docusate Sodium (Pericolace -) 2 tablet PO BID [facility] Last Admin: 03/31/20 09:28 Dose: 2 tablet Documented by: - Objective Vital Signs: Vital Signs Temperature 98.7 F 03/31/20 15:16 Pulse Rate 103 H 03/31/20 15:16 Respiratory Rate 16 03/31/20 15:16 Blood Pressure 116/68 03/31/20 15:16 O2 Sat by Pulse Oximetry (%) 95 03/31/20 15:16 Constitutional: Yes: No Distress HENT: Yes: Atraumatic Neck: Yes: Supple Cardiovascular: Yes: Regular Rate and Rhythm Respiratory: Yes: CTA Bilaterally Gastrointestinal: Yes: Normal Bowel Sounds Extremities: Yes: WNL Edema: No Neurological: Yes: Alert, Oriented Labs: CBC, BMP 03/31/20 07:58 03/31/20 07:58 Problem List - Problems (1) Status post total left knee replacement Assessment/Plan: FOR SNF Code(s): Z96.652 - PRESENCE OF LEFT ARTIFICIAL KNEE JOINT (2) Status post total right knee replacement Code(s): Z96.651 - PRESENCE OF RIGHT ARTIFICIAL KNEE JOINT (3) HLD (hyperlipidemia) Assessment/Plan: ON MEDS Code(s): E78.5 - HYPERLIPIDEMIA, UNSPECIFIED (4) Hypertension Code(s): I10 - ESSENTIAL (PRIMARY) HYPERTENSION (5) UTI (urinary tract infection) Assessment/Plan: ON ABX CXS NOTED Code(s): N39.0 - URINARY TRACT INFECTION, SITE NOT SPECIFIED (6) Anemia Assessment/Plan: ON IRON HAD BLOOD TRANSFUSION MONITOR Code(s): D64.9 - ANEMIA, UNSPECIFIED Assessment/Plan COVERING FOR DR PARKER TODAY
[2020-03-31] MEDS: ACETAMINOPHEN 325 MG TABLET (FP) PO PRN (20:34)
[2020-03-31] MEDS: ATORVASTATIN CA 80 MG TABLET (FP) PO SCH (21:33)
[2020-04-01] MEDS ORDERED: DEXTROSE 5%-WATER - 50 ML IVPB ONE ×2 (01:33→07:48)
[2020-04-01] MEDS ORDERED: PIPERACILLIN/TAZOBACTAM 3.375 GM VIAL IVPB ONE ×2 (01:33→07:48)
[2020-04-01] MEDS: PIPERACILLIN/TAZOB 3.375 GM 3.375 GM in DEXTROSE 5%-WATER - 50 ML IVPB SCH ×3 (02:04→09:48)
[2020-04-01] MEDS: oxyCODONE HCL 5 MG TABLET PO PRN ×4 (04:00→22:21)
[2020-04-01] MEDS: amLODIPine BESYLATE 5 MG TABLET (FP) PO SCH (09:52)
[2020-04-01] MEDS: MULTIVITAMINS (DAILY MVI) TABLET (FP) PO SCH (09:52)
[2020-04-01] MEDS: FERROUS SO4 325 MG TABLET (FP) PO SCH ×2 (09:52→21:20)
[2020-04-01] MEDS: SENNOSIDES/DOCUSATE COMBO (SENNA PLUS) TABLET (UD) PO SCH ×2 (09:52→21:19)
[2020-04-01] MEDS: ASCORBIC ACID 500 MG TABLET (FP) PO SCH ×2 (09:52→21:20)
[2020-04-01] MEDS: RIVAROXABAN 10 MG TABLET PO SCH (09:52)
--- NOTE | 2020-04-01 11:44 | PN ---
Progress Note, Physician History of Present Illness: stable no new issues - Current Medication List Current Medications: Active Medications Acetaminophen (Tylenol -) 650 mg PO Q6H PRN PRN Reason: FEVER Last Admin: 03/31/20 20:34 Dose: 650 mg Documented by: Al Hydroxide/Mg Hydroxide (Mylanta Oral Suspension -) 30 ml PO Q4H PRN PRN Reason: DYSPEPSIA Amlodipine Besylate (Norvasc -) 2.5 mg PO DAILY [facility] Last Admin: 04/01/20 09:52 Dose: 2.5 mg Documented by: Ascorbic Acid (Vitamin C -) 500 mg PO BID [facility] Last Admin: 04/01/20 09:52 Dose: 500 mg Documented by: Atorvastatin Calcium (Lipitor -) 80 mg PO HS [facility] Last Admin: 03/31/20 21:33 Dose: 80 mg Documented by: Ferrous Sulfate (Feosol -) 325 mg PO BID [facility] Last Admin: 04/01/20 09:52 Dose: 325 mg Documented by: Piperacillin Sod/Tazobactam (Sod 3.375 gm/ Dextrose) 50 mls @ 100 mls/hr IVPB Q8H-IV [facility]; Protocol Last Admin: 04/01/20 09:48 Dose: 100 mls/hr Documented by: Magnesium Hydroxide (Milk Of Magnesia -) 30 ml PO PRN PRN PRN Reason: CONSTIPATION Last Admin: 03/31/20 14:02 Dose: 30 ml Documented by: Multivitamins/Minerals/Vitamin C (Tab-A-Vit -) 1 tab PO DAILY [facility] Last Admin: 04/01/20 09:52 Dose: 1 tab Documented by: Nicotine (Nicoderm Patch -) 14 mg TD DAILY PRN PRN Reason: AGITATION Last Admin: 03/27/20 21:25 Dose: 14 mg Documented by: Oxycodone HCl (Roxicodone -) 10 mg PO Q6H PRN PRN Reason: PAIN LEVEL 6-10 Last Admin: 04/01/20 09:49 Dose: 10 mg Documented by: Rivaroxaban (Xarelto) 10 mg PO DAILY [facility] Last Admin: 04/01/20 09:52 Dose: 10 mg Documented by: Senna/Docusate Sodium (Pericolace -) 2 tablet PO BID [facility] Last Admin: 04/01/20 09:52 Dose: 2 tablet Documented by: - Objective Vital Signs: Vital Signs Temperature 98.8 F 04/01/20 10:00 Pulse Rate 84 04/01/20 10:00 Respiratory Rate 20 04/01/20 10:00 Blood Pressure 135/67 04/01/20 10:00 O2 Sat by Pulse Oximetry (%) 96 04/01/20 10:00 Constitutional: Yes: No Distress, Calm Cardiovascular: Yes: S1, S2 Respiratory: Yes: Regular, CTA Bilaterally Gastrointestinal: Yes: Normal Bowel Sounds, Soft Musculoskeletal: Yes: WNL Extremities: Yes: Other Neurological: Yes: Alert Psychiatric: Yes: Alert Labs: CBC, BMP 03/31/20 07:58 03/31/20 07:58 Assessment/Plan Problem List - Problems (1) Anemia Code(s): D64.9 - ANEMIA, UNSPECIFIED (2) Leukocytosis Code(s): D72.829 - ELEVATED WHITE BLOOD CELL COUNT, UNSPECIFIED (3) Status post total left knee replacement Code(s): Z96.652 - PRESENCE OF LEFT ARTIFICIAL KNEE JOINT (4) Status post total right knee replacement Code(s): Z96.651 - PRESENCE OF RIGHT ARTIFICIAL KNEE JOINT (5) HLD (hyperlipidemia) Code(s): E78.5 - HYPERLIPIDEMIA, UNSPECIFIED (6) Hypertension Code(s): I10 - ESSENTIAL (PRIMARY) HYPERTENSION (7) Osteoarthritis Code(s): M19.90 - UNSPECIFIED OSTEOARTHRITIS, UNSPECIFIED SITE Qualifiers: Osteoarthritis location: knee Laterality: bilateral Assessment/Plan UTI Leukocytosis Fever s/p Rt TKA s/p Lt TKA constipation OA Anemia HTN HLD Hep C wbc hs normalized urine cx results noted await for identifiction of organisms will stop vanco continue zosyn for now rest as per the team
[2020-04-01] MEDS: ACETAMINOPHEN 325 MG TABLET (FP) PO PRN (12:03)
--- NOTE | 2020-04-01 12:27 | PATH ---
Surgical Pathology Report Patient Name: ROVERTO RODRIGUEZ Med. Rec. #: [id number] /Age/Gender: 1950 (Age: 69) / F Account: [id number] Location: [address] [place] [address]/[facility] Taken: 03/24/2020 Received: 03/24/2020 Reported: 03/26/2020 Physicians: Brayden Shetty M.D. Specimen(s) Received RIGHT KNEE Clinical History Unilateral primary osteoarthritis right knee Final Diagnosis RIGHT KNEE BONE, RESECTION: DEGENERATIVE JOINT DISEASE, RIGHT KNEE. Electronically Signed Anthony Blood M.D. Gross Description Received in formalin labeled "right knee bone," is a 10.0 x 9.0 x 1.5 cm aggregate of multiple portions of bone and soft tissue, consistent with knee bones. There is multiple areas of eburnation present. The remaining articular surfaces are littlejohn-yellow and diffusely granular. The underlying trabecular bone is yellow and hard. E D Tech sections are submitted in one cassette, following decalcification. KATHERINE/03/24/2020 leona/03/24/2020
--- NOTE | 2020-04-01 13:39 | DS ---
Physical Examination Vital Signs: Vital Signs Temperature 98.8 F 04/01/20 10:00 Pulse Rate 84 04/01/20 10:00 Respiratory Rate 20 04/01/20 10:00 Blood Pressure 135/67 04/01/20 10:00 O2 Sat by Pulse Oximetry (%) 96 04/01/20 10:00 Labs: CBC, BMP 03/31/20 07:58 03/31/20 07:58 Discharge Summary Problems reviewed: Yes Reason For Visit: UNILATERAL PRIMARY OSTEOARTHRITIS, LEFT KNEE Current Active Problems Anemia (Acute) UTI Leukocytosis (Acute) Status post total left knee replacement (Acute) Status post total right knee replacement (Acute) HTN HLD Hospital Course: Pt is a 69 y.o. female with PMH of HTN, OA, HLD, Hep C (not treated), anemia s/p Rt TKA and Lt TKA noted to have low grade fevers worsening leukocytosis (wbc 14.8K today). Received 2U PRBC for blood loss anemia. Was started empirically on Bactrim PO 2 days ago. She is alert and fully responsive, without distress, currently in bed. Pt C/O pain in knees especially with bedside PT for which she is taking Oxycodone. She c/o constipation with her last BM 1 wk ago and has been on laxatives. Denies abd pain/n/v/d. Also denies SOB/cough, CP, dysuria, or any other specific complaints. Pt was found to have (+) urine culture for E.feacalis/ESBL. As per ID pt was started odn IV meropenem and PIC line was placed and she will need 10 days of antibx treatment. Pt also needs to be on augmentin for another 10 days due to UTI. Pt was followed by ortho also and infectious disease. Pt is now stable for DC to SNF for further rehab Condition: Good - Instructions Diet, Activity, Other Instructions: Post Operative Instructions Physical activity Physical Therapist will come to your home for the first 5 days. You will be set up with outpatient PT at your first post-operative visit. Use assistive devices for ambulation at all times. Weight bearing as tolerated on your surgical side. Do not put pillow under knee. May put pillow under heel. Wound care Leave your surgical dressing in place. Do not change the dressing until seen by your surgeon in the office. No baths or showers. Do not submerge your incision. Do not apply any ointments or lotions to your incision. Please call the office if your dressing is soiled/dirty or is falling off. Apply Graduated Compression Stockings (TEDS) to both lower extremities - remove daily for hygiene ONLY. Diet There are no dietary restrictions. Eat healthy, high-fiber foods. Drink 6 to 8 glasses of liquid each day. This will assist in keeping your bowels are regular. Pain management Any pain prescription medication ordered should be taken as prescribed for moderate to severe pain. Do not take additional Tylenol while taking Percocet. Take Xarelto 10mg daily for 30 days unless otherwise instructed by your surgeon Call Dr. Shetty for any of the following: Severe pain not relieved by medication Fever of 101 or higher Excessive bleeding or drainage on dressing Inability to urinate If you experience chest pain or shortness of breath, please seek emergency care immediately. Please call the office at [phone] to confirm your post-op appointment for the week following surgery. Patient found to have ESBL (+) urine culture. As per Infectious disease changed antibiotics to IV meropenem(through PIC line) and PO augmentin for another 10 days Disposition: [facility] - Home Medications Comprehensive Discharge Medication List: Ambulatory Orders Amlodipine Besylate 2.5 mg PO DAILY #30 tablet 11/19/19 Aspirin Coated [Ecotrin -] 81 mg PO DAILY #30 tablet.ec 11/19/19 Atorvastatin Ca [Lipitor] 80 mg PO HS #30 tablet 11/19/19 Acetaminophen [Tylenol .Regular Strength -] 650 mg PO Q6H PRN tablet 04/01/20 Amoxicillin/Potassium Clav [Augmentin 875-125 Tablet] 1 each PO BID #20 tablet 04/01/20 Ascorbic Acid [Vitamin C -] 500 mg PO BID tablet 04/01/20 Ferrous Sulfate [Feosol] 325 mg PO BID ud 04/01/20 Mag Hydrox/Al Hydrox/Simeth [Mylanta Oral Suspension -] 30 ml PO Q4H PRN cup 04/01/20 Magnesium Hydrox 2400MG/30Ml [Milk of Magnesia -] 30 ml PO PRN PRN cup 04/01/20 Meropenem 1 gm IV TID #30 vial 04/01/20 Multivitamins [Multivit ([facility] Formul[facility])] 1 tab PO DAILY tab 04/01/20 Nicotine Patch [Nicoderm Patch -] 14 mg TD DAILY PRN patch 04/01/20 Rivaroxaban [Xarelto] 10 mg PO DAILY tablet 04/01/20 Sennosides/Docusate Sodium [Pericolace -] 2 tablet PO BID tablet 04/01/20 oxyCODONE HCL [Roxicodone -] 10 mg PO Q6H PRN tablet 04/01/20
[2020-04-01] MEDS ORDERED: MEROPENEM 1 GM VIAL (RESTRICTED TO ID) IVPB ONE (16:11)
[2020-04-01] MEDS ORDERED: DEXTROSE 5%-WATER 100 ML IVPB ONE (16:11)
[2020-04-01] MEDS: AMOX TR/POT CLAV 875MG/125MG TABLETS (FP) PO SCH (17:22)
[2020-04-01] MEDS: MEROPENEM 1 GM in DEXTROSE 5%-WATER 100 ML IVPB SCH (17:23)
[2020-04-01] MEDS: ATORVASTATIN CA 80 MG TABLET (FP) PO SCH (21:20)
[2020-04-02] MEDS ORDERED: MEROPENEM 1 GM VIAL (RESTRICTED TO ID) IVPB ONE ×3 (01:07→16:47)
[2020-04-02] MEDS ORDERED: DEXTROSE 5%-WATER 100 ML IVPB ONE ×3 (01:07→16:48)
[2020-04-02] MEDS: MEROPENEM 1 GM in DEXTROSE 5%-WATER 100 ML IVPB SCH ×3 (01:16→17:16)
[2020-04-02] MEDS: oxyCODONE HCL 5 MG TABLET PO PRN ×3 (04:25→16:30)
--- NOTE | 2020-04-02 09:48 | PN ---
Progress Note, Physician History of Present Illness: stable no new issues - Current Medication List Current Medications: Active Medications Acetaminophen (Tylenol -) 650 mg PO Q6H PRN PRN Reason: FEVER Last Admin: 04/01/20 12:03 Dose: 650 mg Documented by: Al Hydroxide/Mg Hydroxide (Mylanta Oral Suspension -) 30 ml PO Q4H PRN PRN Reason: DYSPEPSIA Amlodipine Besylate (Norvasc -) 2.5 mg PO DAILY [facility] Last Admin: 04/01/20 09:52 Dose: 2.5 mg Documented by: Amoxicillin/Clavulanate Potassium (Augmentin - 875mg Tablet) 1 tab PO BID@0800,1730 [facility] Last Admin: 04/01/20 17:22 Dose: 1 tab Documented by: Ascorbic Acid (Vitamin C -) 500 mg PO BID [facility] Last Admin: 04/01/20 21:20 Dose: 500 mg Documented by: Atorvastatin Calcium (Lipitor -) 80 mg PO HS [facility] Last Admin: 04/01/20 21:20 Dose: 80 mg Documented by: Ferrous Sulfate (Feosol -) 325 mg PO BID [facility] Last Admin: 04/01/20 21:20 Dose: 325 mg Documented by: Meropenem 1 gm/ Dextrose 100 mls @ 200 mls/hr IVPB Q8H-IV [facility] Last Admin: 04/02/20 01:16 Dose: 200 mls/hr Documented by: Magnesium Hydroxide (Milk Of Magnesia -) 30 ml PO PRN PRN PRN Reason: CONSTIPATION Last Admin: 03/31/20 14:02 Dose: 30 ml Documented by: Multivitamins/Minerals/Vitamin C (Tab-A-Vit -) 1 tab PO DAILY [facility] Last Admin: 04/01/20 09:52 Dose: 1 tab Documented by: Nicotine (Nicoderm Patch -) 14 mg TD DAILY PRN PRN Reason: AGITATION Last Admin: 03/27/20 21:25 Dose: 14 mg Documented by: Oxycodone HCl (Roxicodone -) 10 mg PO Q6H PRN PRN Reason: PAIN LEVEL 6-10 Last Admin: 04/02/20 04:25 Dose: 10 mg Documented by: Rivaroxaban (Xarelto) 10 mg PO DAILY [facility] Last Admin: 04/01/20 09:52 Dose: 10 mg Documented by: Senna/Docusate Sodium (Pericolace -) 2 tablet PO BID [facility] Last Admin: 04/01/20 21:19 Dose: 2 tablet Documented by: - Objective Vital Signs: Vital Signs Temperature 98.3 F 04/02/20 08:46 Pulse Rate 83 04/02/20 08:46 Respiratory Rate 18 04/02/20 08:46 Blood Pressure 143/75 04/02/20 08:46 O2 Sat by Pulse Oximetry (%) 106 H 04/02/20 08:46 Constitutional: Yes: No Distress, Calm HENT: Yes: Atraumatic, Normocephalic Cardiovascular: Yes: Regular Rate and Rhythm Respiratory: Yes: Regular, CTA Bilaterally Gastrointestinal: Yes: Normal Bowel Sounds, Soft Musculoskeletal: Yes: WNL Extremities: Yes: WNL Neurological: Yes: Alert, Oriented Psychiatric: Yes: Alert, Oriented Labs: CBC, BMP 03/31/20 07:58 03/31/20 07:58 Assessment/Plan Problem List - Problems (1) Anemia Code(s): D64.9 - ANEMIA, UNSPECIFIED (2) Leukocytosis Code(s): D72.829 - ELEVATED WHITE BLOOD CELL COUNT, UNSPECIFIED (3) Status post total left knee replacement Code(s): Z96.652 - PRESENCE OF LEFT ARTIFICIAL KNEE JOINT (4) Status post total right knee replacement Code(s): Z96.651 - PRESENCE OF RIGHT ARTIFICIAL KNEE JOINT (5) HLD (hyperlipidemia) Code(s): E78.5 - HYPERLIPIDEMIA, UNSPECIFIED (6) Hypertension Code(s): I10 - ESSENTIAL (PRIMARY) HYPERTENSION (7) Osteoarthritis Code(s): M19.90 - UNSPECIFIED OSTEOARTHRITIS, UNSPECIFIED SITE Qualifiers: Osteoarthritis location: knee Laterality: bilateral Assessment/Plan UTI Leukocytosis Fever s/p Rt TKA s/p Lt TKA constipation OA Anemia HTN HLD Hep C wbc has normalized urine cx results noted organisms noted continue abx will need it for 10 more days
[2020-04-02] MEDS ORDERED: PT OWN MED DRAWER 7, Y5N ONE (10:05)
[2020-04-02] MEDS: RIVAROXABAN 10 MG TABLET PO SCH (10:11)
[2020-04-02] MEDS: FERROUS SO4 325 MG TABLET (FP) PO SCH ×2 (10:11→21:11)
[2020-04-02] MEDS: AMOX TR/POT CLAV 875MG/125MG TABLETS (FP) PO SCH ×2 (10:11→16:31)
[2020-04-02] MEDS: ASCORBIC ACID 500 MG TABLET (FP) PO SCH ×2 (10:12→21:10)
[2020-04-02] MEDS: MULTIVITAMINS (DAILY MVI) TABLET (FP) PO SCH (10:12)
[2020-04-02] MEDS: SENNOSIDES/DOCUSATE COMBO (SENNA PLUS) TABLET (UD) PO SCH ×2 (10:13→21:11)
[2020-04-02] MEDS: amLODIPine BESYLATE 5 MG TABLET (FP) PO SCH (10:13)
[2020-04-02] MEDS: ATORVASTATIN CA 80 MG TABLET (FP) PO SCH (21:11)
--- NOTE | 2020-04-02 22:41 | PN ---
Progress Note, Physician - Current Medication List Current Medications: Active Medications Acetaminophen (Tylenol -) 650 mg PO Q6H PRN PRN Reason: FEVER Last Admin: 04/01/20 12:03 Dose: 650 mg Documented by: Al Hydroxide/Mg Hydroxide (Mylanta Oral Suspension -) 30 ml PO Q4H PRN PRN Reason: DYSPEPSIA Amlodipine Besylate (Norvasc -) 2.5 mg PO DAILY [facility] Last Admin: 04/02/20 10:13 Dose: 2.5 mg Documented by: Amoxicillin/Clavulanate Potassium (Augmentin - 875mg Tablet) 1 tab PO BID@0800,1730 [facility] Last Admin: 04/02/20 16:31 Dose: 1 tab Documented by: Ascorbic Acid (Vitamin C -) 500 mg PO BID [facility] Last Admin: 04/02/20 21:10 Dose: 500 mg Documented by: Atorvastatin Calcium (Lipitor -) 80 mg PO HS [facility] Last Admin: 04/02/20 21:11 Dose: 80 mg Documented by: Ferrous Sulfate (Feosol -) 325 mg PO BID [facility] Last Admin: 04/02/20 21:11 Dose: 325 mg Documented by: Meropenem 1 gm/ Dextrose 100 mls @ 200 mls/hr IVPB Q8H-IV [facility] Last Admin: 04/02/20 17:16 Dose: 200 mls/hr Documented by: Magnesium Hydroxide (Milk Of Magnesia -) 30 ml PO PRN PRN PRN Reason: CONSTIPATION Last Admin: 03/31/20 14:02 Dose: 30 ml Documented by: Multivitamins/Minerals/Vitamin C (Tab-A-Vit -) 1 tab PO DAILY [facility] Last Admin: 04/02/20 10:12 Dose: 1 tab Documented by: Nicotine (Nicoderm Patch -) 14 mg TD DAILY PRN PRN Reason: AGITATION Last Admin: 03/27/20 21:25 Dose: 14 mg Documented by: Oxycodone HCl (Roxicodone -) 5 mg PO Q6H PRN PRN Reason: PAIN LEVEL 6-10 Last Admin: 04/02/20 16:30 Dose: 5 mg Documented by: Rivaroxaban (Xarelto) 10 mg PO DAILY [facility] Last Admin: 04/02/20 10:11 Dose: 10 mg Documented by: Senna/Docusate Sodium (Pericolace -) 2 tablet PO BID [facility] Last Admin: 04/02/20 21:11 Dose: 2 tablet Documented by: - Objective Vital Signs: Vital Signs Temperature 98.7 F 04/02/20 18:59 Pulse Rate 95 H 04/02/20 18:59 Respiratory Rate 04/02/20 14:05 Blood Pressure 140/66 04/02/20 18:59 O2 Sat by Pulse Oximetry (%) 95 04/02/20 18:59 Labs: CBC, BMP 03/31/20 07:58 03/31/20 07:58 Problem List - Problems (1) Anemia Code(s): D64.9 - ANEMIA, UNSPECIFIED (2) Leukocytosis Code(s): D72.829 - ELEVATED WHITE BLOOD CELL COUNT, UNSPECIFIED (3) Status post total left knee replacement Code(s): Z96.652 - PRESENCE OF LEFT ARTIFICIAL KNEE JOINT (4) Status post total right knee replacement Code(s): Z96.651 - PRESENCE OF RIGHT ARTIFICIAL KNEE JOINT (5) Hypertension Code(s): I10 - ESSENTIAL (PRIMARY) HYPERTENSION (6) HLD (hyperlipidemia) Code(s): E78.5 - HYPERLIPIDEMIA, UNSPECIFIED (7) Osteoarthritis Code(s): M19.90 - UNSPECIFIED OSTEOARTHRITIS, UNSPECIFIED SITE Qualifiers: Osteoarthritis location: knee Laterality: bilateral
[2020-04-03] MEDS ORDERED: MEROPENEM 1 GM VIAL (RESTRICTED TO ID) IVPB ONE ×3 (00:14→16:33)
[2020-04-03] MEDS ORDERED: DEXTROSE 5%-WATER 100 ML IVPB ONE ×3 (00:14→16:33)
[2020-04-03] MEDS: MEROPENEM 1 GM in DEXTROSE 5%-WATER 100 ML IVPB SCH ×3 (02:47→17:43)
[2020-04-03] MEDS: oxyCODONE HCL 5 MG TABLET PO PRN ×3 (02:48→16:36)
[2020-04-03] MEDS: AMOX TR/POT CLAV 875MG/125MG TABLETS (FP) PO SCH ×2 (08:43→16:37)
[2020-04-03] MEDS ORDERED: PT OWN MED DRAWER 7, Y5N ONE (09:45)
[2020-04-03] MEDS: FERROUS SO4 325 MG TABLET (FP) PO SCH (09:50)
[2020-04-03] MEDS: ASCORBIC ACID 500 MG TABLET (FP) PO SCH (09:51)
[2020-04-03] MEDS: amLODIPine BESYLATE 5 MG TABLET (FP) PO SCH (09:51)
[2020-04-03] MEDS: SENNOSIDES/DOCUSATE COMBO (SENNA PLUS) TABLET (UD) PO SCH (09:51)
[2020-04-03] MEDS: MULTIVITAMINS (DAILY MVI) TABLET (FP) PO SCH (09:51)
[2020-04-03] MEDS: RIVAROXABAN 10 MG TABLET PO SCH (09:52)
[2020-04-03] MEDS: ACETAMINOPHEN 325 MG TABLET (FP) PO PRN (12:36)
[2020-04-03 14:37] VITALS: BP 144/76; PULSE 87; TEMP 98.1
== END 2020-04-03 18:56 | DRG 462 ==
LOC: J2C 06:06 → J6S 12:28
PROVIDERS: ADMIT Internal Medicine; ATTEND Internal Medicine
PROC: 0MBN0ZZ Excision of Right Knee Bursa and Ligament, Open Approach (ICD-10-PCS; 2020-03-24)
PROC: 0SBC0ZZ Excision of Right Knee Joint, Open Approach (ICD-10-PCS; 2020-03-24)
PROC: 0SRC0J9 Replacement of Right Knee Joint with Synthetic Substitute, Cemented, Open Approach (ICD-10-PCS; principal; 2020-03-24 08:00)
PROC: 30233N1 Transfusion of Nonautologous Red Blood Cells into Peripheral Vein, Percutaneous Approach (ICD-10-PCS; 2020-03-26)
PROC: 0SRD0J9 Replacement of Left Knee Joint with Synthetic Substitute, Cemented, Open Approach (ICD-10-PCS; 2020-03-27)
PROC: 0MBP0ZZ Excision of Left Knee Bursa and Ligament, Open Approach (ICD-10-PCS; 2020-03-27)
PROC: 0SBD0ZZ Excision of Left Knee Joint, Open Approach (ICD-10-PCS; 2020-03-27)
PROC: 02HV33Z Insertion of Infusion Device into Superior Vena Cava, Percutaneous Approach (ICD-10-PCS; 2020-04-01)
PROC: B518ZZA Fluoroscopy of Superior Vena Cava, Guidance (ICD-10-PCS; 2020-04-01)
DX: M17.0 Bilateral primary osteoarthritis of knee (principal); D62 Acute posthemorrhagic anemia; N39.0 Urinary tract infection, site not specified; Z16.12 Extended spectrum beta lactamase (ESBL) resistance; I10 Essential (primary) hypertension; S83.241A Other tear of medial meniscus, current injury, right knee, initial encounter; S83.281A Other tear of lateral meniscus, current injury, right knee, initial encounter; F19.10 Other psychoactive substance abuse, uncomplicated; F17.210 Nicotine dependence, cigarettes, uncomplicated; D72.829 Elevated white blood cell count, unspecified; E78.5 Hyperlipidemia, unspecified; K59.00 Constipation, unspecified
CPT/HCPCS: 36415; 36430; 36511; 36569; 73560-TC-LT-FY; 73560-TC-RT-FY; 77001-TC-FY; 80048; 80053; 81003; 85025; 85027; 86850; 86900; 86901; 86922; 87040; 87086; 87186; 88304-TC; 88305-TC; 88311-TC; 93005; 93010; 94760; 97116-GP; 97162-GP; C1751; G0480; J0131; P9038; P9058; U0003

== ENCOUNTER 2022-01-30 16:30 | Emergency (ER) | payer OTHER ==
[2022-01-30 16:51] VITALS: BP 151/84; PULSE 97; TEMP 98.3; BMI 30.9
[2022-01-30] MEDS ORDERED: METHOCARBAMOL 500 MG TABLET PO ONE (17:37)
[2022-01-30] MEDS ORDERED: METHOCARBAMOL 500 MG TABLET ONE (17:42)
== END 2022-01-30 19:55 | disposition home or self-care (01) ==
LOC: JERFT 16:30 → JER 16:30 → JERFT 19:55
DX: H11.32 Conjunctival hemorrhage, left eye (principal); M62.838 Other muscle spasm
CPT/HCPCS: 99283-25

== ENCOUNTER 2024-11-02 15:54 | Observation (INO) | payer OTHER ==
[2024-11-02] MEDS: SODIUM CHLORIDE 1,000 ML IV SCH (17:00)
[2024-11-02 18:06] LABS: BASO % 0.4 % (0-2.0); EOS % 1.2 % (0-4.5); HEMATOCRIT 41.8 % (32.4-45.2); HEMOGLOBIN 13.6 GM/dL (10.7-15.3); MCHC 32.5 g/dl (32.0-36.0); MEAN PLT VOLUME 7.9 fl (7.5-11.1); MONO % 6.8 % (3.8-10.2); NEUT % 66.6 % (42.8-82.8); PLATELET COUNT 230 10^3/uL (134-434); RBC 4.86 M/mm3 (3.60-5.2); RDW 14.8 % (11.6-15.6); WHITE BLOOD COUNT 5.7 K/mm3 (4.0-10.0)
[2024-11-02 18:17] LABS: INR 0.96 (0.83-1.09); PROTHROMBIN TIME (PATIENT) 10.5 SEC (9.7-13.0)
[2024-11-02 18:20] LABS: ACTIVATED PTT 22.6 SECONDS (25.2-36.5)
[2024-11-02 18:30] LABS: POTASSIUM 3.5 mmol/L (3.5-5.1)
[2024-11-02 18:32] LABS: CALCIUM 9.1 mg/dL (8.5-10.1)
[2024-11-02 18:33] LABS: ALBUMIN 3.5 g/dl (3.4-5.0)
[2024-11-02 18:36] LABS: CREATININE 0.7 mg/dL (0.55-1.3)
[2024-11-02 18:38] LABS: TOT PROT 6.6 g/dl (6.4-8.2)
[2024-11-02 18:39] LABS: BILIRUBIN,TOTAL 0.3 mg/dL (0.2-1)
[2024-11-02 18:53] LABS: EPI CELLS >36 /uL (0-25.1); HYALINE CASTS 2 /uL (0-3.1); PH,URINE 6.5 (5.0-8.0); URINE APPEARANCE CLEAR; URINE BACTERIA 140 /uL (0-1359); URINE BILIRUBIN NEGATIVE (NEGATIVE); URINE COLOR YELLOW; URINE GLUCOSE (UA) NEGATIVE (NEGATIVE); URINE KETONE NEGATIVE (NEGATIVE); URINE LEUK ESTERASE NEGATIVE (NEGATIVE); URINE NITRITE NEGATIVE (NEGATIVE); URINE PROTEIN TRACE (NEGATIVE); URINE RBC 36 /uL (0-23.9); URINE WBC 52 /uL (0-25.8)
[2024-11-03] MEDS: CLOPIDOGREL BISULFATE 75 MG TABLET (FP) PO ONE (00:24)
[2024-11-03] MEDS ORDERED: ACETAMINOPHEN 325 MG TABLET (FP) ONE (02:28)
[2024-11-03 06:31] LABS: HEMATOCRIT 37.8 % (32.4-45.2); MCH 27.7 pg (25.7-33.7); MCHC 31.8 g/dl (32.0-36.0); MEAN CELL VOLUME 87.3 fl (80-96); MEAN PLT VOLUME 8.2 fl (7.5-11.1); PLATELET COUNT 218 10^3/uL (134-434); RBC 4.33 M/mm3 (3.60-5.2); RDW 14.6 % (11.6-15.6); WHITE BLOOD COUNT 6.7 K/mm3 (4.0-10.0)
[2024-11-03 06:52] LABS: POTASSIUM 4.7 mmol/L (3.5-5.1)
[2024-11-03 06:55] LABS: ALBUMIN 3.1 g/dl (3.4-5.0); BLOOD UREA NITROGEN 18.7 mg/dL (7-18); CALCIUM 9.1 mg/dL (8.5-10.1)
[2024-11-03 06:58] LABS: CREATININE 0.9 mg/dL (0.55-1.3)
[2024-11-03 07:00] LABS: TOT PROT 6.3 g/dl (6.4-8.2)
[2024-11-03 07:01] LABS: BILIRUBIN,TOTAL 0.4 mg/dL (0.2-1)
[2024-11-03] MEDS ORDERED: ASPIRIN COATED 81 MG TABLET.EC ONE (09:56)
[2024-11-03] MEDS: ASPIRIN COATED 81 MG TABLET.EC PO SCH (10:20)
[2024-11-03] MEDS: CLOPIDOGREL BISULFATE 75 MG TABLET (FP) PO SCH (10:20)
[2024-11-03] MEDS: MULTIVITAMINS (DAILY MVI) TABLET (FP) PO SCH (10:20)
[2024-11-03] MEDS ORDERED: ATORVASTATIN CA 80 MG TABLET (FP) ONE (22:05)
[2024-11-03] MEDS ORDERED: ACETAMINOPHEN 500 MG TABLET (FP) ONE (22:06)
[2024-11-03] MEDS: ACETAMINOPHEN 500 MG TABLET (FP) PO ONE (22:31)
[2024-11-03] MEDS: ATORVASTATIN CA 80 MG TABLET (FP) PO SCH (23:57)
[2024-11-04 07:59] LABS: POTASSIUM 3.3 mmol/L (3.5-5.1)
[2024-11-04 08:32] LABS: CALCIUM 9.1 mg/dL (8.5-10.1)
[2024-11-04 08:33] LABS: BLOOD UREA NITROGEN 18.8 mg/dL (7-18)
[2024-11-04 08:36] LABS: CREATININE 0.7 mg/dL (0.55-1.3)
[2024-11-04] MEDS ORDERED: LOSARTAN POTASSIUM 25 MG TABLET ONE (12:01)
[2024-11-04] MEDS ORDERED: amLODIPine BESYLATE 5 MG TABLET (FP) ONE (12:01)
[2024-11-04] MEDS ORDERED: POTASSIUM CHLORIDE TABS 20 MEQ TABLET.ER (FP) PO ONE (12:01)
[2024-11-04] MEDS: LOSARTAN 50MG/HCTZ 12.5MG 1 TAB PO SCH (12:30)
[2024-11-04] MEDS: amLODIPine BESYLATE 5 MG TABLET (FP) PO SCH (12:30)
[2024-11-04] MEDS: POTASSIUM CHLORIDE TABS 20 MEQ TABLET.ER (FP) PO ONE (12:30)
[2024-11-04] MEDS ORDERED: ACETAMINOPHEN 325 MG TABLET (FP) ONE (19:40)
[2024-11-04] MEDS: ACETAMINOPHEN 325 MG TABLET (FP) PO ONE (19:43)
[2024-11-04] MEDS: MELATONIN 5 MG TABLETS PO ONE (23:08)
[2024-11-05] MEDS: ACETAMINOPHEN 1000 MG/100 ML BAG IVPB ONE (02:04)
[2024-11-05 08:27] LABS: POTASSIUM 3.9 mmol/L (3.5-5.1)
[2024-11-05 08:29] LABS: CALCIUM 9.2 mg/dL (8.5-10.1)
[2024-11-05 08:30] LABS: BLOOD UREA NITROGEN 17.7 mg/dL (7-18); MAGNESIUM 1.9 mg/dL (1.8-2.4)
[2024-11-05 08:33] LABS: CREATININE 0.6 mg/dL (0.55-1.3)
[2024-11-06 15:20] VITALS: BMI 21.4
[2024-11-06 18:32] VITALS: RESP 17
[2024-11-07 15:58] VITALS: BP 114/61; PULSE 79; TEMP 98.3
== END 2024-11-07 15:11 | disposition short-term general hospital (02) ==
LOC: JER 15:54 → UNDOADMOB 18:20 → INTOOBSV 18:20 → JERBED 18:20 → J4S 11-04 20:05
PROVIDERS: ADMIT Student in an Organized Health Care Education/Training Program; ATTEND Internal Medicine
PROC: 3E033NZ Introduction of Analgesics, Hypnotics, Sedatives into Peripheral Vein, Percutaneous Approach (ICD-10-PCS; principal; 2024-11-02)
DX: I63.89 Other cerebral infarction (principal); R47.1 Dysarthria and anarthria; I65.02 Occlusion and stenosis of left vertebral artery; I65.1 Occlusion and stenosis of basilar artery; I10 Essential (primary) hypertension; I69.351 Hemiplegia and hemiparesis following cerebral infarction affecting right dominant side; E78.5 Hyperlipidemia, unspecified; M19.90 Unspecified osteoarthritis, unspecified site; Z96.653 Presence of artificial knee joint, bilateral; Z86.19 Personal history of other infectious and parasitic diseases; F17.210 Nicotine dependence, cigarettes, uncomplicated
CPT/HCPCS: 36415; 70450-TC; 70496-TC; 70498-TC; 70551-TC; 80048; 80053; 80061; 81003; 82550; 83036; 83735; 84484; 85025; 85027; 85610; 85730; 86850; 86900; 86901; 93005; 93010; 93306-TC; 97116-GP; 97162-GP; 99285-25; G0378; J0131; Q9967